=== PATIENT | female | born 1945 | race Caucasian/White ===

== ENCOUNTER 2019-05-13 14:09 | Inpatient (IN) | payer MEDICARE ==
[2019-05-13] MEDS ORDERED: Vancomycin(*) 1,000 MG in NS 0.9% 250 ML* 250 ML IV ONE (15:41)
[2019-05-13] MEDS ORDERED: Piperacillin/Tazobac ADVAN(*) 3.375 GM in NS 0.9% 100 ML* 100 ML IVPB ONE (15:41)
[2019-05-13] MEDS ORDERED: Lactated Ringers 1000 ML Bag* 1,000 ML IV ONE (15:42)
--- NOTE | 2019-05-13 16:00 | ED ---
Shortness of Breath - HPI Summary HPI Summary: This patient is a 74 year old F sent to ED by Dr. Kitchen with a chief complaint of SOB since several months ago. Patient is an ex-smoker who quit 10-15 years ago. She was sent by her PCP to Dr. Kitchen for mild anemia, fever, tachycardia, and cough. Dr. Kitchen worked up the patient and found the patients hemoglobin to be within normal limits, but had an elevated WBC, ESR, and CRP. Patient is also reporting cough, so patient received a CXR, which indicated a possible mass. Follow-up CT revealed a 9cm R lower lobe object that could be a mass, abscess, or something else. Dr. Kitchen thus sent the patient here and also consulted with Dr. Pro, process operator, who will perform a bronchoscopy. In the ED room, patient is tachycardic but not febrile. She denies chest pain. The patient rates the pain 0/10 in severity. Symptoms aggravated by nothing. Symptoms alleviated by nothing. - History of Current Complaint Chief Complaint: EDShortnessOfBreath Time Seen by Provider: 05/13/19 14:54 Hx Obtained From: Patient, EMS, Other: - Dr. Kitchen Onset/Duration: Gradual Onset, Lasting Weeks, Still Present, Worse Since Timing: Constant Current Severity: Mild Dyspnea At: Rest Aggravating Factors: Nothing Alleviating Factors: Nothing Associated Signs & Symptoms: Negative - Chest pain, Cough (Nonproductive), Fever - Allergy/Home Medications Allergies/Adverse Reactions: Allergies Allergy/AdvReac Type Severity Reaction Status Date / Time No Known Allergies Allergy Verified 05/13/19 14:23 Home Medications: Home Medications Acetaminophen TAB* [Tylenol TAB*] 650 mg PO BID PRN 05/13/19 [History Confirmed 05/13/19] Cetirizine* [ZyrTEC 10 MG TAB*] 10 mg PO DAILY 05/13/19 [History Confirmed 05/13] Diclofenac Sodium 1 % TOPICAL TID PRN 05/13/19 [History Confirmed 05/13/19] L.acidoph,Paracasei, B.lactis [Probiotic] 1 each PO TID 05/13/19 [History Confirmed 05/13/19] Milk Thistle/Nac/Dandel/Turmer [Liver Complex Tablet] 1 each PO BID 05/13/19 [ History Confirmed 05/13/19] Multivitamins/Minerals TAB* [Theragran/minerals TAB*] 1 tab PO DAILY 05/13/19 [ History Confirmed 05/13/19] PMH/Surg Hx/FS Hx/Imm Hx Cardiovascular History: Reports: Hx Hypertension Musculoskeletal History: Reports: Hx Arthritis - Cancer History Hx Chemotherapy: No Hx Radiation Therapy: No - Surgical History Surgery Procedure, Year, and Place: x2. D&C. [place] teeth - Immunization History Immunizations Up to Date: Yes Infectious Disease History: No Infectious Disease History: Denies: Traveled Outside the [place] in Last 30 Days - Family History Known Family History: Negative: Seizure Disorder - Social History Alcohol Use: Occasionally Hx Substance Use: No Substance Use Type: Reports: None Hx Tobacco Use: Yes Smoking Status (MU): Former Smoker Review of Systems Positive: Fever Cardiovascular: Other - Tachycardia Negative: Chest Pain Positive: Shortness Of Breath, Cough All Other Systems Reviewed And Are Negative: Yes Physical Exam - Summary Physical Exam Summary: Constitutional: Well-developed, Well-nourished, Alert. (-) Distressed Skin: Warm, Dry HENT: Normocephalic; Atraumatic Eyes: Conjunctiva normal Neck: Musculoskeletal ROM normal neck. (-) JVD, (-) Stridor, (-) Tracheal deviation Cardio: Tachycardic, warm and well-perfused peripherally Pulmonary/Chest wall: Effort normal. (-) Respiratory distress, (-) Wheezes, (-) Rales Abd: Soft, (-) tenderness, (-) Distension, (-) Guarding, (-) Rebound Musculoskeletal: Very minimal 1+ edema of anterior legs, no calf tenderness or swelling Neuro: Alert, Oriented x3 Psych: Mood and affect Normal Triage Information Reviewed: Yes Vital Signs On Initial Exam: Initial Vitals Temp Pulse Resp BP Pulse Ox 99.3 F 108 16 176/87 94 05/13/19 14:18 05/13/19 14:18 05/13/19 14:18 05/13/19 14:18 05/13/19 14:18 Vital Signs Reviewed: Yes Procedures - Sedation Patient Received Moderate/Deep Sedation with Procedure: No Diagnostics - Vital Signs Vital Signs Temp Pulse Resp BP Pulse Ox 05/13/19 15:41 114 163/91 96 05/13/19 15:35 118 94 05/13/19 14:18 99.3 F 108 16 176/87 94 - Laboratory Result Diagrams: 05/13/19 16:12 05/13/19 16:12 Lab Statement: Any lab studies that have been ordered have been reviewed, and results considered in the medical decision making process. - EKG 1614 Cardiac Rate: Tachycardia - 106 BPM EKG Rhythm: Sinus Tachycardia ST Segment: Non-Specific Summary of EKG Findings: An EKG at 1614 revealed sinus tachycardia at 106 BPM, non-specific T-wave abnormalities, 1x PVC, no STEMI. Dr. Casas has reviewed and interpreted this EKG report. Course/Dx - Course Course Of Treatment: This patient is a 74 year old F sent to ED by Dr. Kitchen with a chief complaint of SOB since several months ago. Patient was sent here by Dr. Kitchen for potential lung abscess or mass treatment and work-up. As patient had an elevated WBC per Dr. Baez, I have considered the sepsis protocol, but I do not think the patient can handle the high fluid load of 30/ kg due to her weight, age, and frailty. Thus, I will gently give fluids, Zosyn, and Vancomycin. An EKG at 1614 revealed sinus tachycardia at 106 BPM, non- specific T-wave abnormalities, 1x PVC, no STEMI. Discussed patient case with Dr. Schwarz, hospitalist, who accepted the patient for admission to [facility]. Patient will be admitted to [facility] with dx of lung mass, likely abscess vs malignancy. Patient understands and agrees with this plan. - Diagnoses Provider Diagnoses: Lung mass - Physician Notifications Discussed Care of Patient With: [place] Schwarz Time Discussed With Above Provider: 16:19 Instructed by Provider To: Admit As Inpatient - Discussed patient case with Dr. Schwarz, hospitalist, who accepted the patient for admission to [facility]. Discharge ED - Sign-Out/Discharge Documenting (check all that apply): Patient Departure - Admit - Discharge Plan Condition: Fair Disposition: ADMITTED TO [facility] - Billing Disposition and Condition Condition: FAIR Disposition: Admitted to [facility] - Attestation Statements Document Initiated by Scribe: Yes Documenting Scribe: Justin Rodarte Provider For Whom Scribe is Documenting (Include Credential): Claude Casas MD Scribe Attestation: IJustin, scribed for Claude Casas MD on 05/13/19 at 1907. Scribe Documentation Reviewed: Yes Provider Attestation: The documentation as recorded by the scribe, Justin Rodarte accurately reflects the service I personally performed and the decisions made by me, Claude Casas MD Status of Scribe Document: Viewed
[2019-05-13 16:22] LABS: ABS Lymphocytes 1.6 10^3/ul (1.0-4.8); ABS Monocytes 0.5 10^3/ul (0-0.8); ABS Neutrophils 8.5 10^3/ul (1.5-7.7); Eosinophil % 0.3 %; Hematocrit 37 % (35-47); Hemoglobin 12.5 g/dL (12.0-16.0); Lymphocyte % 15.1 %; Mean Corpuscular HGB Conc 34 g/dL (31-36); Mean Corpuscular Hemoglobin 29 pg (27-31); Mean Corpuscular Volume 85 fL (80-97); Mean Platelet Volume 7.2 fL (7.4-10.4); Platelet Count 423 10^3/uL (150-450); Red Blood Count 4.31 10^6 /uL (3.70-4.87); Red Cell Distribution Width 15 % (10-15); White Blood Count 10.7 10^3/uL (3.5-10.8)
[2019-05-13 16:33] LABS: INR 1.05 (0.82-1.09)
[2019-05-13 16:40] LABS: Troponin I 0.01 ng/mL (<0.03)
[2019-05-13 16:49] LABS: BUN/Creatinine Ratio 17.9 (8-20); Calcium 10.1 mg/dL (8.6-10.3); EGFR African American 104.1 (>60); Potassium 3.7 mmol/L (3.5-5.0)
--- NOTE | 2019-05-13 16:56 | CONS ---
PULMONARY CONSULTATION REPORT: DATE OF CONSULT: 05/13/19 CONSULTATION REQUESTED BY: Dr. Kitchen. REASON FOR CONSULTATION: Evaluation of abnormal CT chest. HISTORY OF PRESENT ILLNESS: The patient is a 74-year-old female who was recently referred to Hematology/Oncology for evaluation of anemia. The patient with history of colon polyps. The patient had colonoscopy in April 2018 that showed hyperplastic polyps. She was found to have elevated WBC count with no anemia. She had CXR for evaluation of source of infection give elevated WBC count. The patient had shortness of breath over the past few months, gradually worsening. Deneis fevers , chills, wt loss or loss of appetite. Reports having cough with phleghm. The patient had chest x- ray performed which was abnormal, which prompted CT chest. I have personally reviewed chest x-ray and CT scan of the chest . The patient with evidence of large mass lesion on to the right side. The patient's mass is in the right lower lobe. The patient also with air density in the mass. The patient with prominent pretracheal and subcarinal lymph nodes. Right hilum is also obscured by the mass. Patient was sent to ED for evaluation of sepsis sec to necrotizing PNA. The patient was noted to be hemodynamically stable with low-grade temperature at 99.3, pulse of 114 beats per minute, O2 sat 96% on room air, blood pressure 163/ 91. The patient with hypoxemia with exertion noted [facility] 6-[facility]. 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 30 pack smoking history, quit 16 yrs ago ROS: All 12 systems were reviewed and as per HPI O/E: Gen: Pt in NAD HEENT: PERRLA Lungs: Good a/e b/l, clear to auscultation CVS: S1, S2+ Abd: Soft, BS+ Ext: Normal ROM Skin: NO rash Neuro: No focal deficits DIAGNOSTIC STUDIES/LAB DATA: WBC count 11.8, hemoglobin 12.2, hematocrit 36, platelet count 391. Sodium 137, potassium 3.7, chloride 99, bicarb 30, BUN 14, creatinine 0.7. TSH within normal limits. CRP elevated at 44. Chest x-ray and CT scan as described above in HPI. IMPRESSION AND RECOMMENDATIONS: 74-year-old female with abnormal CT chest. Differential includes infectious versus inflammatory versus neoplastic. Given no other signs of active infection at this time and prior smoking history, malignancy is also in the differential. Given central mass, I suspect small cell or squamous. Will initiate broad spectrum abx for PNA Full septic w/u including sputum cx The patient will need bronchoscopy for further evaluation in the near future. Further recommendations to follow. [id number]/[facility] #: [id number] [facility]
[2019-05-13] MEDS ORDERED: Zosyn per Pharmacy* NOTE FOLLOW UP SCH (18:00)
[2019-05-13] MEDS ORDERED: Vancomycin(*) 750 MG in NS 0.9% 250 ML* 250 ML IVPB ONE (18:00)
[2019-05-13] MEDS ORDERED: Vancomycin per Pharmacy* NOTE FOLLOW UP SCH (18:00)
[2019-05-13] MEDS ORDERED: RISEDRONATE 35 MG PO SCH (18:00)
[2019-05-13] MEDS: Enoxaparin(*) 40 MG/0.4 ML SYR SUBCUT SCH (19:28)
--- NOTE | 2019-05-13 19:40 | HP ---
CC: Dr. Angel; Dr. Pro * ADMISSION HISTORY AND PHYSICAL: DATE OF ADMISSION: 05/13/19 CHIEF COMPLAINT: Abnormal chest CT. HISTORY OF PRESENT ILLNESS: Ms. Willard is a 74-year-old woman with a history of hypertension and arthritis who had dyspnea with exertion for several months. This seemed to get worse in the last month and is associated with a mild cough. She attributed the cough to allergies. The patient saw her primary care doctor and was referred to Dr. Kitchen because of mild anemia. The patient saw Dr. Kitchen yesterday and had a repeat white count, which showed resolution of anemia, but an elevated white cell count. The patient had a chest x-ray yesterday, which showed a concern of a mass on the right side. The patient today had her chest CT and was meeting up with Dr. Kitchen. The CT scan showed a 7.9 x 7.8 x 6.3 cm mass in the right lower lobe in the central perihilar area. The mass has a central decreased density and some air pockets. There is also lymphadenopathy noted in the mediastinum and hilum. Because of the CT findings, the patient was referred to the ER for admission. The patient was seen in the ER by Dr. Pro for consultation. She reviewed the CT and talked to the patient and listed the differential of malignancy, either squamous cell or small-cell lung cancer, versus lung infection/abscess versus inflammation. She recommended admission, broad-spectrum antibiotics, and a bronchoscopy as soon as could be arranged. PAST MEDICAL HISTORY: Includes hypertension, hyperlipidemia, osteoarthritis, and osteoporosis. PAST SURGICAL HISTORY: Appendectomy, x2, and carpal tunnel surgery. MEDICATIONS ON ADMISSION: 1. Acetaminophen as needed. 2. Aspirin 81 mg p.o. daily. 3. Calcium with magnesium 1 to 2 tabs p.o. daily. 4. Cetirizine 10 mg p.o. daily. 5. Diclofenac topically 1% t.i.d. p.r.n. to joint pain. 6. Ezetimibe/simvastatin 10/40 one tab p.o. daily. 7. Hydrochlorothiazide 25 mg p.o. q.a.m. 8. Irbesartan 300 mg p.o. daily. 9. Probiotic 1 tab p.o. t.i.d. 10. Milk thistle 1 tab p.o. b.i.d. 11. Multivitamin 1 tab p.o. daily. 12. Actonel 35 mg p.o. q. week. ALLERGIES: No known drug allergies. She has some seasonal allergies. FAMILY HISTORY: Mother had rheumatoid arthritis and steroid-induced bone disease, but of pneumonia. Father of emphysema. She has a sister, who is alive, who had a stroke. SOCIAL HISTORY: She is a retired business banking officer and business redrawer. She is . She has 2 children. She quit tobacco 16 years ago after a 30-pack- year history. She drinks alcohol about once a week. No recreational drugs. REVIEW OF SYSTEMS: The patient denies any fevers, weight loss, or anorexia. The patient denies any chest pain or palpitations. The patient denies any hemoptysis. The patient denies any nausea, vomiting, diarrhea, or constipation. The patient's only pain is in her knees, which she attributes to arthritis. Remainder of her 14- point review of systems is negative other than mentioned in the HPI. PHYSICAL EXAMINATION GENERAL: She is alert and in no acute distress. VITAL SIGNS: Temperature is 37.4, pulse 106 to 118, respirations are 16, blood pressure is 125/89, O2 sat is 96%. HEENT: Head is normocephalic, atraumatic. Sclerae anicteric. Pupils are equal , round, and reactive to light and accommodation. Oropharynx is moist. No lesions. NECK: No JVD. No carotid bruit. No thyromegaly. No cervical or supraclavicular adenopathy. LUNGS: Diminished throughout. There are no rales or wheezes. HEART: Tachycardiac. Regular. No murmurs. ABDOMEN: Soft, nontender. Positive bowel sounds. No hepatosplenomegaly. EXTREMITIES: No peripheral edema. Dorsalis pedis pulses 1+ bilaterally. NEUROLOGIC: Cranial nerves II through XII are intact. Motor strength is 5/5 throughout. Deep tendon reflexes are symmetric. DIAGNOSTIC STUDIES/LAB DATA: Laboratory Data: Sodium 139, potassium 3.7, chloride 101, bicarb 28, BUN 12, creatinine 0.67, glucose 98, calcium 10.1. INR 1.05. Troponin 0.01. ESR was 96. CRP 44. White count 10.7, hemoglobin 12.5, hematocrit 37%, platelets are 423. Lactic acid 1.5. Venous blood gas shows pH of 7.45, pCO2 of 42, pO2 of 40. Chest x-ray shows a right hilar mass. Chest CT shows a right lung mass with lymphadenopathy as described above. EKG shows sinus tachycardia with 1 PVC. ASSESSMENT AND PLAN: A 74-year-old woman presenting with right hilar mass with some early cavitation. The differential would include fungal infection, bacterial abscess such as methicillin-resistant Staphylococcus aureus or other Staphylococcus. This also may be a neoplasm or unusual presentation of inflammatory disease. The neoplasm according to Dr. Pro would either be squamous cell or small-cell lung cancer most likely. The plan is to: 1. Admit her to medicine and treat her with broad-spectrum Zosyn and vancomycin to cover Gram-positives and Gram-negatives, particularly Staphylococcus anaerobes. If the bronchoscopy shows any fungal or yeast disease , we will address that at that point after infectious disease consultation. 2. For hypertension, we will continue her on her current outpatient medication regimen. 3. Code status is full. 4. DVT prophylaxis. She is at high risk given her age and lung disease, so she should have subcutaneous Lovenox while she is here in the hospital. [id number]/[facility] #: [id number] [facility]TDD
[2019-05-13] MEDS: Acetaminophen TAB* 325 MG PO PRN (19:52)
[2019-05-13] MEDS: ZOSYN 3.375 GM Q8H per EXTENDED INFUSION IVPB SCH ×2 (20:47)
[2019-05-14] MEDS: ZOSYN 3.375 GM Q8H per EXTENDED INFUSION IVPB SCH ×6 (04:40→21:28)
[2019-05-14] MEDS ORDERED: Ezetimibe TAB* 10 MG PO SCH (09:00)
[2019-05-14] MEDS ORDERED: Atorvastatin* 20 MG TAB PO SCH (09:00)
[2019-05-14] MEDS: Vancomycin(*) 1,250 MG in NS 0.9% 250 ML* 250 ML IVPB SCH ×2 (09:31→21:06)
[2019-05-14] MEDS: Aspirin EC TAB* 81 MG TAB.EC PO SCH (09:32)
[2019-05-14] MEDS: Hydrochlorothiazide TAB* 25 MG PO SCH (09:32)
[2019-05-14] MEDS: Losartan TAB* 25 MG PO SCH (09:33)
--- NOTE | 2019-05-14 14:05 | PN ---
Subjective Date of Service: 05/14/19 Interval History: One loose stool today. Good appetite. ?? sl increased FULLER over her baseline, but has done very little here since admission. No cough, chills, sweats, chest pain. No new c/o. Objective Active Medications: Acetaminophen (Tylenol Tab*) 650 mg PO Q4H PRN PRN Reason: FEVER/HEADACHE Last Admin: 05/13/19 19:52 Dose: 650 mg Aspirin (Aspirin Ec Tab*) 81 mg PO DAILY [facility] Last Admin: 05/14/19 09:32 Dose: Not Given Atorvastatin Calcium (Lipitor*) 20 mg PO DAILY [facility] Last Admin: 05/14/19 09:32 Dose: Not Given Ezetimibe (Zetia Tab*) 10 mg PO DAILY [facility] Last Admin: 05/14/19 09:31 Dose: Not Given Enoxaparin Sodium (Lovenox(*)) 40 mg SUBCUT Q24H [facility] Last Admin: 05/13/19 19:28 Dose: 40 mg Hydrochlorothiazide (Hydrodiuril Tab*) 25 mg PO DAILY [facility] Last Admin: 05/14/19 09:32 Dose: 25 mg Piperacillin Sod/Tazobactam (Sod 3.375 gm/ Sodium Chloride) 100 mls @ 25 mls/ hr IVPB Q8H [facility] Last Admin: 05/14/19 13:13 Dose: 25 mls/hr Vancomycin HCl 1,250 mg/ (Sodium Chloride) 250 mls @ 166.667 mls/hr IVPB Q12H [facility] Last Admin: 05/14/19 09:31 Dose: 166.667 mls/hr Losartan Potassium (Cozaar Tab*) 100 mg PO DAILY [facility] Last Admin: 05/14/19 09:33 Dose: 100 mg Pharmacy Consult (Vancomycin Per Pharmacy*) 1 note FOLLOW UP .VANC PER PHARMACY [facility]; Protocol Pharmacy Consult (Zosyn Per Pharmacy*) 1 note FOLLOW UP .ZOSYN PER PHARMACY [facility] Pharmacy Profile Note (Vancomycin Trough Check) 1 note FOLLOW UP 0730 ONE Stop: 05/15/19 07:31 Risedronate (Actonel (Nf)) 35 mg PO WEEKLY [facility]; Protocol Vital Signs - 8 hr 05/14/19 05/14/19 05/14/19 07:15 08:00 11:15 Temperature 98.8 F 98.5 F Pulse Rate 98 102 Respiratory 18 16 16 Rate Blood Pressure 121/71 127/58 (mmHg) O2 Sat by Pulse 92 94 Oximetry Oxygen Devices in Use Now: None Appearance: Alert, partly up in bed. In good spirits. Looks comfortable. . Eyes: No Scleral Icterus Respiratory: Symmetrical Chest Expansion and Respiratory Effort, Clear to Auscultation, Clear to Percussion Cardiovascular: NL Sounds; No Murmurs; No JVD, RRR, No Edema, - Extremities: No Edema, No Clubbing, Cyanosis, - Skin: No Rash or Ulcers, No Nodules or Sclerosis, - Neurological: Alert and Oriented x 3, NL Sensation Result Diagrams: 05/13/19 16:12 05/13/19 16:12 Microbiology and Other Data: Microbiology 05/13/19 17:20 Gram Stain - Final Sputum Expectorated Assess/Plan/Problems-Billing Assessment: - Patient Problems (1) Lung mass Current Visit: Yes Status: Acute Code(s): R91.8 - OTHER NONSPECIFIC ABNORMAL FINDING OF LUNG FIELD SNOMED Code(s): 886151377 Comment: 9 x 7 cm RLL mass, heterogenous on CT scan with gas, necrotic cancer vs abcess. Continue pip/felicitas, vanco. Dr. Pro considering bronchoscopy. (2) HTN (hypertension) Current Visit: Yes Status: Acute Code(s): I10 - ESSENTIAL (PRIMARY) HYPERTENSION SNOMED Code(s): 41555105 Comment: continue thiazide, losartan (3) Hyperlipidemia Current Visit: Yes Status: Acute Code(s): E78.5 - HYPERLIPIDEMIA, UNSPECIFIED SNOMED Code(s): 43104887 Comment: Continue statin, ezetimibe
[2019-05-14] MEDS: Enoxaparin(*) 40 MG/0.4 ML SYR SUBCUT SCH (17:04)
--- NOTE | 2019-05-14 18:01 | PN ---
Progress Note - Progress Note Date of Service: 05/14/19 - Pulm f/u note Note: Pt seen and examined at bedside. Pt reports feeling better. Was able to ambulate without much dyspnea Active Medications Generic Name Dose Route Start Last Admin Trade Name Freq PRN Reason Stop Dose Admin Acetaminophen 650 mg 05/13/19 17:34 05/13/19 19:52 Tylenol Tab* PO 650 mg Q4H PRN Administration FEVER/HEADACHE Aspirin 81 mg 05/14/19 09:00 05/14/19 09:32 Aspirin Ec Tab* PO Not Given DAILY [facility] Atorvastatin Calcium 20 mg 05/14/19 21:00 Lipitor* PO BEDTIME [facility] Ezetimibe 10 mg 05/14/19 21:00 Zetia Tab* PO BEDTIME [facility] Enoxaparin Sodium 40 mg 05/13/19 18:00 05/14/19 17:04 Lovenox(*) SUBCUT 40 mg Q24H [facility] Administration Hydrochlorothiazide 25 mg 05/14/19 09:00 05/14/19 09:32 Hydrodiuril Tab* PO 25 mg DAILY [facility] Administration Piperacillin Sod/Tazobactam 100 mls @ 25 mls/hr 05/13/19 20:30 05/14/19 13:13 Sod 3.375 gm/ Sodium Chloride IVPB 25 mls/hr Q8H [facility] Administration Vancomycin HCl 1,250 mg/ 250 mls @ 166.667 mls/hr 05/14/19 08:00 05/14/19 09: 31 Sodium Chloride IVPB 166.667 mls/hr Q12H [facility] Administration Losartan Potassium 100 mg 05/14/19 09:00 05/14/19 09:33 Cozaar Tab* PO 100 mg DAILY [facility] Administration Pharmacy Consult 1 note 05/13/19 18:00 Vancomycin Per Pharmacy* FOLLOW UP .VANC PER PHARMACY [facility] Protocol Pharmacy Consult 1 note 05/13/19 18:00 Zosyn Per Pharmacy* FOLLOW UP .ZOSYN PER PHARMACY [facility] Pharmacy Profile Note 1 note 05/15/19 07:30 Vancomycin Trough Check FOLLOW UP 05/15/19 07:31 0730 ONE Risedronate 35 mg 05/13/19 18:00 Actonel (Nf) PO WEEKLY [facility] Protocol Vital Signs Temp Pulse Resp BP Pulse Ox 99.2 F 98 18 129/68 95 05/14/19 15:15 05/14/19 15:15 05/14/19 15:15 05/14/19 15:15 05/14/19 15:15 O/E: Pt in NAD HEENT: PERRLA Lungs: Clear to auscultation b/l CVS: S1, S2+ Abd: Soft, BS+ Ext: Normal ROM Skin: No rash Neuro: No focal deficits Labs: No new labs I/R; 74 y o f former smoker being evaluated for anemia/leucocytosis found to have necrotizing mass on CT chest Lung abscess versus malignancy Pt on broad spectrum abx No signs of sepsis Has FULLER noticable over past month Has not had much cough Sputum cx negative so far Will need bronchoscopy, awaiting OR availability c/w abx OOB to chair
[2019-05-14] MEDS: Ezetimibe TAB* 10 MG PO SCH (21:07)
[2019-05-14] MEDS: Atorvastatin* 20 MG TAB PO SCH (21:07)
[2019-05-15] MEDS: ZOSYN 3.375 GM Q8H per EXTENDED INFUSION IVPB SCH ×6 (03:39→20:29)
[2019-05-15] MEDS ORDERED: Vancomycin Trough Check NOTE FOLLOW UP ONE (07:30)
[2019-05-15] MEDS: Aspirin EC TAB* 81 MG TAB.EC PO SCH (09:22)
[2019-05-15] MEDS: Hydrochlorothiazide TAB* 25 MG PO SCH (09:22)
[2019-05-15] MEDS: Vancomycin(*) 1,250 MG in NS 0.9% 250 ML* 250 ML IVPB SCH ×2 (09:22→17:28)
[2019-05-15] MEDS: Losartan TAB* 25 MG PO SCH (09:23)
[2019-05-15] MEDS: Ondansetron ODT TAB* 4 MG SL PRN (11:23)
--- NOTE | 2019-05-15 12:47 | PN ---
Subjective Date of Service: 05/15/19 Interval History: Minimal cough. 2 loose BM's since [place]. Some nausea. Objective Active Medications: Acetaminophen (Tylenol Tab*) 650 mg PO Q4H PRN PRN Reason: FEVER/HEADACHE Last Admin: 05/13/19 19:52 Dose: 650 mg Aspirin (Aspirin Ec Tab*) 81 mg PO DAILY [facility] Last Admin: 05/15/19 09:22 Dose: Not Given Atorvastatin Calcium (Lipitor*) 20 mg PO BEDTIME [facility] Last Admin: 05/14/19 21:07 Dose: 20 mg Ezetimibe (Zetia Tab*) 10 mg PO BEDTIME [facility] Last Admin: 05/14/19 21:07 Dose: 10 mg Enoxaparin Sodium (Lovenox(*)) 40 mg SUBCUT Q24H [facility] Last Admin: 05/14/19 17:04 Dose: 40 mg Hydrochlorothiazide (Hydrodiuril Tab*) 25 mg PO DAILY [facility] Last Admin: 05/15/19 09:22 Dose: 25 mg Piperacillin Sod/Tazobactam (Sod 3.375 gm/ Sodium Chloride) 100 mls @ 25 mls/ hr IVPB Q8H [facility] Last Admin: 05/15/19 03:39 Dose: 25 mls/hr Vancomycin HCl 1,250 mg/ (Sodium Chloride) 250 mls @ 166.667 mls/hr IVPB Q8H [facility] Losartan Potassium (Cozaar Tab*) 100 mg PO DAILY [facility] Last Admin: 05/15/19 09:23 Dose: 100 mg Ondansetron HCl (Zofran Odt Tab*) 4 mg SL Q6H PRN PRN Reason: NAUSEA/VOMITING Last Admin: 05/15/19 11:23 Dose: 4 mg Pharmacy Consult (Vancomycin Per Pharmacy*) 1 note FOLLOW UP .VANC PER PHARMACY [facility]; Protocol Pharmacy Consult (Zosyn Per Pharmacy*) 1 note FOLLOW UP .ZOSYN PER PHARMACY [facility] Pharmacy Profile Note (Vancomycin Trough Check) 1 note FOLLOW UP ONCE ONE Stop: 05/17/19 08:31 Risedronate (Actonel (Nf)) 35 mg PO WEEKLY [facility]; Protocol Vital Signs - 8 hr 05/15/19 05/15/19 07:15 08:00 Temperature 98.2 F Pulse Rate 96 Respiratory 16 18 Rate Blood Pressure 133/64 (mmHg) O2 Sat by Pulse 95 Oximetry Oxygen Devices in Use Now: None Eyes: No Scleral Icterus Neck: NL Appearance and Movements; NL JVP, No Thyroid Enlargement, Masses Respiratory: Symmetrical Chest Expansion and Respiratory Effort, Clear to Auscultation, Clear to Percussion Cardiovascular: NL Sounds; No Murmurs; No JVD, RRR, No Edema, - Extremities: No Edema, No Clubbing, Cyanosis, - Skin: No Rash or Ulcers, No Nodules or Sclerosis, - Neurological: Alert and Oriented x 3, NL Sensation Result Diagrams: 05/13/19 16:12 05/13/19 16:12 Microbiology and Other Data: Microbiology 05/13/19 17:20 Gram Stain - Final Sputum Expectorated Assess/Plan/Problems-Billing Assessment: - Patient Problems (1) Lung mass Current Visit: Yes Status: Acute Code(s): R91.8 - OTHER NONSPECIFIC ABNORMAL FINDING OF LUNG FIELD SNOMED Code(s): 967857976 Comment: 9 x 7 cm RLL mass, heterogenous on CT scan with gas, necrotic cancer vs abcess. Continue pip/felicitas, vanco. Discussed with Dr. Pro 05/15/19 , considering bronchoscopy, ? as outpt. (2) HTN (hypertension) Current Visit: Yes Status: Acute Code(s): I10 - ESSENTIAL (PRIMARY) HYPERTENSION SNOMED Code(s): 70176581 Comment: continue thiazide, losartan (3) Hyperlipidemia Current Visit: Yes Status: Acute Code(s): E78.5 - HYPERLIPIDEMIA, UNSPECIFIED SNOMED Code(s): 24992026 Comment: Continue statin, ezetimibe
[2019-05-15] MEDS: Acetaminophen TAB* 325 MG PO PRN (15:32)
[2019-05-15] MEDS: Enoxaparin(*) 40 MG/0.4 ML SYR SUBCUT SCH (17:29)
--- NOTE | 2019-05-15 19:28 | PN ---
Progress Note - Progress Note Date of Service: 05/15/19 - Pulm f/u note Note: Pt seen and examined at bedside. Pt reports feeling better. No new complaints. Active Medications Generic Name Dose Route Start Last Admin Trade Name Freq PRN Reason Stop Dose Admin Acetaminophen 650 mg 05/13/19 17:34 05/15/19 15:32 Tylenol Tab* PO 650 mg Q4H PRN Administration FEVER/HEADACHE Aspirin 81 mg 05/14/19 09:00 05/15/19 09:22 Aspirin Ec Tab* PO Not Given DAILY [facility] Atorvastatin Calcium 20 mg 05/14/19 21:00 05/14/19 21:07 Lipitor* PO 20 mg BEDTIME [facility] Administration Ezetimibe 10 mg 05/14/19 21:00 05/14/19 21:07 Zetia Tab* PO 10 mg BEDTIME [facility] Administration Enoxaparin Sodium 40 mg 05/13/19 18:00 05/15/19 17:29 Lovenox(*) SUBCUT 40 mg Q24H [facility] Administration Hydrochlorothiazide 25 mg 05/14/19 09:00 05/15/19 09:22 Hydrodiuril Tab* PO 25 mg DAILY [facility] Administration Piperacillin Sod/Tazobactam 100 mls @ 25 mls/hr 05/13/19 20:30 05/15/19 13:45 Sod 3.375 gm/ Sodium Chloride IVPB 25 mls/hr Q8H [facility] Administration Vancomycin HCl 1,250 mg/ 250 mls @ 166.667 mls/hr 05/15/19 17:00 05/15/19 17: 28 Sodium Chloride IVPB 166.667 mls/hr Q8H [facility] Administration Losartan Potassium 100 mg 05/14/19 09:00 05/15/19 09:23 Cozaar Tab* PO 100 mg DAILY [facility] Administration Ondansetron HCl 4 mg 05/15/19 09:37 05/15/19 11:23 Zofran Odt Tab* SL 4 mg Q6H PRN Administration NAUSEA/VOMITING Pharmacy Consult 1 note 05/13/19 18:00 Vancomycin Per Pharmacy* FOLLOW UP .VANC PER PHARMACY [facility] Protocol Pharmacy Consult 1 note 05/13/19 18:00 Zosyn Per Pharmacy* FOLLOW UP .ZOSYN PER [facility]ARMACY [facility] Pharmacy Profile Note 1 note 05/17/19 08:30 Vancomycin Trough Check FOLLOW UP 05/17/19 08:31 ONCE ONE Risedronate 35 mg 05/13/19 18:00 Actonel (Nf) PO WEEKLY [facility] Protocol Vital Signs Temp Pulse Resp BP Pulse Ox 100.0 F 101 20 128/61 93 05/15/19 15:15 05/15/19 15:15 05/15/19 15:15 05/15/19 15:15 05/15/19 15:15 O/E: Pt in NAD HEENT: PERRLA Lungs: Clear to auscultation b/l CVS: S1, S2+ Abd: Soft, BS+ Ext: Normal ROM Skin: No rash Neuro: No focal deficits Laboratory Results - last 24 hr 05/15/19 07:22 Vancomycin Trough 11.0 I/R; 74 y o f former smoker being evaluated for anemia/leucocytosis found to have necrotizing mass on CT chest Lung abscess versus malignancy Pt on broad spectrum abx Has FULLER noticeable over past month Has not had much cough Sputum cx negative so far Will need bronchoscopy, awaiting OR availability c/w abx for possible lung abscess OOB to chair
[2019-05-15] MEDS: Ezetimibe TAB* 10 MG PO SCH (20:28)
[2019-05-15] MEDS: Atorvastatin* 20 MG TAB PO SCH (20:29)
[2019-05-15] MEDS: Lactobacillus Acidophilus* 1 TAB PO SCH (21:56)
[2019-05-16] MEDS: Vancomycin(*) 1,250 MG in NS 0.9% 250 ML* 250 ML IVPB SCH ×3 (00:54→18:11)
[2019-05-16] MEDS: Acetaminophen TAB* 325 MG PO PRN ×3 (01:06→20:34)
[2019-05-16] MEDS: ZOSYN 3.375 GM Q8H per EXTENDED INFUSION IVPB SCH ×6 (04:21→20:25)
[2019-05-16] MEDS: Hydrochlorothiazide TAB* 25 MG PO SCH (10:10)
[2019-05-16] MEDS: Lactobacillus Acidophilus* 1 TAB PO SCH ×2 (10:10→20:24)
[2019-05-16] MEDS: Aspirin EC TAB* 81 MG TAB.EC PO SCH (10:10)
[2019-05-16] MEDS: Losartan TAB* 25 MG PO SCH (10:10)
[2019-05-16] MEDS: Enoxaparin(*) 40 MG/0.4 ML SYR SUBCUT SCH (18:11)
--- NOTE | 2019-05-16 19:01 | PN ---
Subjective Date of Service: 05/16/19 Interval History: Mild sense of malaise today, but appetite is good. Pt walked in the [place]. She reports her stools are more formed today. C/O vaginal yeast infection which she has had many times in the past. Objective Active Medications: Acetaminophen (Tylenol Tab*) 650 mg PO Q4H PRN PRN Reason: FEVER/HEADACHE Last Admin: 05/16/19 13:45 Dose: 650 mg Aspirin (Aspirin Ec Tab*) 81 mg PO DAILY [facility] Last Admin: 05/16/19 10:10 Dose: Not Given Atorvastatin Calcium (Lipitor*) 20 mg PO BEDTIME [facility] Last Admin: 05/15/19 20:29 Dose: 20 mg Ezetimibe (Zetia Tab*) 10 mg PO BEDTIME [facility] Last Admin: 05/15/19 20:28 Dose: 10 mg Enoxaparin Sodium (Lovenox(*)) 40 mg SUBCUT Q24H [facility] Last Admin: 05/16/19 18:11 Dose: 40 mg Hydrochlorothiazide (Hydrodiuril Tab*) 25 mg PO DAILY [facility] Last Admin: 05/16/19 10:10 Dose: 25 mg Piperacillin Sod/Tazobactam (Sod 3.375 gm/ Sodium Chloride) 100 mls @ 25 mls/ hr IVPB Q8H [facility] Last Admin: 05/16/19 13:45 Dose: 25 mls/hr Vancomycin HCl 1,250 mg/ (Sodium Chloride) 250 mls @ 166.667 mls/hr IVPB Q8H [facility] Last Admin: 05/16/19 18:11 Dose: 166.667 mls/hr Lactobacillus Rhamnosus (Lactobacillus Acidophilus*) 1 tab PO BID [facility] Last Admin: 05/16/19 10:10 Dose: 1 tab Loperamide HCl (Imodium Cap*) 2 mg PO .SEE DIRECTIONS PRN PRN Reason: DIARRHEA Losartan Potassium (Cozaar Tab*) 100 mg PO DAILY [facility] Last Admin: 05/16/19 10:10 Dose: 100 mg Ondansetron HCl (Zofran Odt Tab*) 4 mg SL Q6H PRN PRN Reason: NAUSEA/VOMITING Last Admin: 05/15/19 11:23 Dose: 4 mg Pharmacy Consult (Vancomycin Per Pharmacy*) 1 note FOLLOW UP .VANC PER PHARMACY [facility]; Protocol Pharmacy Consult (Zosyn Per Pharmacy*) 1 note FOLLOW UP .ZOSYN PER PHARMACY [facility] Pharmacy Profile Note (Vancomycin Trough Check) 1 note FOLLOW UP ONCE ONE Stop: 05/17/19 08:31 Risedronate (Actonel (Nf)) 35 mg PO WEEKLY [facility]; Protocol Vital Signs - 8 hr 05/16/19 05/16/19 11:15 15:15 Temperature 98.5 F 98.7 F Pulse Rate 100 104 Respiratory 16 18 Rate Blood Pressure 116/51 123/49 (mmHg) O2 Sat by Pulse 95 93 Oximetry Oxygen Devices in Use Now: None Extremities: No Edema, No Clubbing, Cyanosis Skin: No Nodules or Sclerosis, - - red, indurated area L forearm and antecubital area due to infiltrated IV. Neurological: Alert and Oriented x 3, NL Sensation Result Diagrams: 05/13/19 16:12 05/13/19 16:12 Microbiology and Other Data: Microbiology 05/13/19 17:20 Gram Stain - Final Sputum Expectorated Assess/Plan/Problems-Billing Assessment: - Patient Problems (1) Lung mass Current Visit: Yes Status: Acute Code(s): R91.8 - OTHER NONSPECIFIC ABNORMAL FINDING OF LUNG FIELD SNOMED Code(s): 981414608 Comment: 9 x 7 cm RLL mass, heterogenous on CT scan with gas, necrotic cancer vs abcess. Continue pip/felicitas, vanco. Discussed with Dr. Pro 05/15/19 , considering bronchoscopy, ? as outpt. (2) HTN (hypertension) Current Visit: Yes Status: Acute Code(s): I10 - ESSENTIAL (PRIMARY) HYPERTENSION SNOMED Code(s): 26071055 Comment: continue thiazide, losartan (3) Hyperlipidemia Current Visit: Yes Status: Acute Code(s): E78.5 - HYPERLIPIDEMIA, UNSPECIFIED SNOMED Code(s): 00633763 Comment: Continue statin, ezetimibe (4) Vaginal candidiasis Current Visit: Yes Status: Acute Code(s): B37.3 - CANDIDIASIS OF VULVA AND VAGINA SNOMED Code(s): 79065882 Comment: fluconazole 150 mg ordered 05/16.
[2019-05-16] MEDS ORDERED: Fluconazole 150 MG TAB PO ONE (19:02)
[2019-05-16] MEDS: Ezetimibe TAB* 10 MG PO SCH (20:24)
[2019-05-16] MEDS: Atorvastatin* 20 MG TAB PO SCH (20:25)
[2019-05-17] MEDS: Vancomycin(*) 1,250 MG in NS 0.9% 250 ML* 250 ML IVPB SCH ×2 (01:06→09:18)
[2019-05-17] MEDS: ZOSYN 3.375 GM Q8H per EXTENDED INFUSION IVPB SCH ×2 (04:22)
[2019-05-17] MEDS ORDERED: Vancomycin Trough Check NOTE FOLLOW UP ONE (08:30)
[2019-05-17 08:56] LABS: EGFR African American 27.4 (>60); EGFR Non-African American 22.6 (>60)
--- NOTE | 2019-05-17 09:40 | PN ---
Subjective Date of Service: 05/17/19 Interval History: Some nausea. One loose stool per day as before. Objective Active Medications: Acetaminophen (Tylenol Tab*) 650 mg PO Q4H PRN PRN Reason: FEVER/HEADACHE Last Admin: 05/16/19 20:34 Dose: 650 mg Aspirin (Aspirin Ec Tab*) 81 mg PO DAILY [facility] Last Admin: 05/16/19 10:10 Dose: Not Given Atorvastatin Calcium (Lipitor*) 20 mg PO BEDTIME [facility] Last Admin: 05/16/19 20:25 Dose: 20 mg Doxycycline Hyclate (Vibramycin Cap(*)) 100 mg PO BID [facility] Ezetimibe (Zetia Tab*) 10 mg PO BEDTIME [facility] Last Admin: 05/16/19 20:24 Dose: 10 mg Enoxaparin Sodium (Lovenox(*)) 40 mg SUBCUT Q24H [facility] Last Admin: 05/16/19 18:11 Dose: 40 mg Hydrochlorothiazide (Hydrodiuril Tab*) 25 mg PO DAILY [facility] Last Admin: 05/16/19 10:10 Dose: 25 mg Dextrose/Sodium Chloride (D5w 1/2 Ns 1000 Ml Bag*) 1,000 mls @ 125 mls/hr IV PER RATE [facility] Lactobacillus Rhamnosus (Lactobacillus Acidophilus*) 1 tab PO BID [facility] Last Admin: 05/16/19 20:24 Dose: 1 tab Loperamide HCl (Imodium Cap*) 2 mg PO .SEE DIRECTIONS PRN PRN Reason: DIARRHEA Losartan Potassium (Cozaar Tab*) 100 mg PO DAILY [facility] Last Admin: 05/16/19 10:10 Dose: 100 mg Ondansetron HCl (Zofran Odt Tab*) 4 mg SL Q6H PRN PRN Reason: NAUSEA/VOMITING Last Admin: 05/15/19 11:23 Dose: 4 mg Risedronate (Actonel (Nf)) 35 mg PO WEEKLY [facility]; Protocol Vital Signs - 8 hr 05/17/19 03:04 Temperature 98.4 F Pulse Rate 103 Respiratory 18 Rate Blood Pressure 134/73 (mmHg) O2 Sat by Pulse 93 Oximetry Oxygen Devices in Use Now: None Appearance: SAlert, partly upp in bed. In good spiritsw. Looks comfortable. Eyes: No Scleral Icterus Ears/Nose/Mouth/Throat: Clear Oropharnyx, Mucous Membranes Moist Neck: NL Appearance and Movements; NL JVP, No Thyroid Enlargement, Masses Extremities: No Edema, No Clubbing, Cyanosis, - Skin: No Nodules or Sclerosis, - - Erythema and induration 2 areas LUE both better today. Neurological: Alert and Oriented x 3, NL Sensation Result Diagrams: 05/13/19 16:12 05/17/19 08:30 Microbiology and Other Data: Microbiology 05/13/19 17:20 Gram Stain - Final Sputum Expectorated Assess/Plan/Problems-Billing Assessment: - Patient Problems (1) Lung mass Current Visit: Yes Status: Acute Code(s): R91.8 - OTHER NONSPECIFIC ABNORMAL FINDING OF LUNG FIELD SNOMED Code(s): 459176355 Comment: 9 x 7 cm RLL mass, heterogenous on CT scan with gas, necrotic cancer vs abcess. Change to levofloxacin, doxy 05/17. Renal dosing of levo. Discussed with Dr. Pro 05/15/19, considering bronchoscopy, ? as outpt. (2) HTN (hypertension) Current Visit: Yes Status: Acute Code(s): I10 - ESSENTIAL (PRIMARY) HYPERTENSION SNOMED Code(s): 21958593 Comment: continue thiazide, losartan (3) Hyperlipidemia Current Visit: Yes Status: Acute Code(s): E78.5 - HYPERLIPIDEMIA, UNSPECIFIED SNOMED Code(s): 48704832 Comment: Continue statin, ezetimibe (4) Vaginal candidiasis Current Visit: Yes Status: Acute Code(s): B37.3 - CANDIDIASIS OF VULVA AND VAGINA SNOMED Code(s): 85742694 Comment: fluconazole 150 mg ordered 05/16. (5) Acute kidney failure Current Visit: Yes Status: Acute Comment: Suspect interstial nephritis from PCN. US kidneys/bladder, IV fluids. BMP 05/18. [place] antibiotics to oral levo, doxy.
[2019-05-17] MEDS: Ondansetron ODT TAB* 4 MG SL PRN ×2 (10:26→20:24)
[2019-05-17] MEDS: Lactobacillus Acidophilus* 1 TAB PO SCH ×2 (10:26→20:20)
[2019-05-17] MEDS: DOXYcycline CAP(*) 100 MG PO SCH ×2 (10:26→20:20)
[2019-05-17] MEDS: Hydrochlorothiazide TAB* 25 MG PO SCH (10:26)
[2019-05-17] MEDS: D5W 1/2 NS 1000 ML BAG* 1,000 ML IV SCH ×2 (10:30→20:20)
[2019-05-17] MEDS: Aspirin EC TAB* 81 MG TAB.EC PO SCH (10:31)
[2019-05-17] MEDS ORDERED: Levofloxacin TAB* 500 MG PO ONE (12:00)
[2019-05-17] MEDS: Losartan TAB* 25 MG PO SCH (12:28)
--- NOTE | 2019-05-17 15:09 | PN ---
Progress Note - Progress Note Date of Service: 05/17/19 - Pulm f/u note Note: Pt seen and examined at bedside. Pt reports no signficant SOB. Has been having nausea and 1 loose stool/day. No significant cough Active Medications Generic Name Dose Route Start Last Admin Trade Name Freq PRN Reason Stop Dose Admin Acetaminophen 650 mg 05/13/19 17:34 05/16/19 20:34 Tylenol Tab* PO 650 mg Q4H PRN Administration FEVER/HEADACHE Aspirin 81 mg 05/14/19 09:00 05/17/19 10:31 Aspirin Ec Tab* PO Not Given DAILY [facility] Atorvastatin Calcium 20 mg 05/14/19 21:00 05/16/19 20:25 Lipitor* PO 20 mg BEDTIME [facility] Administration Doxycycline Hyclate 100 mg 05/17/19 10:00 05/17/19 10:26 Vibramycin Cap(*) PO 100 mg BID [facility] Administration Ezetimibe 10 mg 05/14/19 21:00 05/16/19 20:24 Zetia Tab* PO 10 mg BEDTIME [facility] Administration Enoxaparin Sodium 30 mg 05/17/19 18:00 Lovenox(*) SUBCUT Q24H [facility] Hydrochlorothiazide 25 mg 05/14/19 09:00 05/17/19 10:26 Hydrodiuril Tab* PO 25 mg DAILY [facility] Administration Dextrose/Sodium Chloride 1,000 mls @ 125 mls/hr 05/17/19 10:00 05/17/19 10:30 D5w 1/2 Ns 1000 Ml Bag* IV 125 mls/hr PER RATE [facility] Administration Lactobacillus Rhamnosus 1 tab 05/15/19 21:00 05/17/19 10:26 Lactobacillus Acidophilus* PO 1 tab BID [facility] Administration Levofloxacin 250 mg 05/18/19 09:00 Levaquin Tab* PO DAILY [facility] Loperamide HCl 2 mg 05/15/19 20:34 Imodium Cap* PO .SEE DIRECTIONS PRN DIARRHEA Losartan Potassium 100 mg 05/14/19 09:00 05/17/19 12:28 Cozaar Tab* PO 100 mg DAILY [facility] Administration Ondansetron HCl 4 mg 05/15/19 09:37 05/17/19 10:26 Zofran Odt Tab* SL 4 mg Q6H PRN Administration NAUSEA/VOMITING Risedronate 35 mg 05/13/19 18:00 Actonel (Nf) PO WEEKLY [facility] Protocol Vital Signs Temp Pulse Resp BP Pulse Ox 97.7 F 96 20 151/67 95 05/17/19 11:15 05/17/19 11:15 05/17/19 11:15 05/17/19 11:15 05/17/19 11:15 /E: Pt in NAD HEENT: PERRLA Lungs: Clear to auscultation b/l CVS: S1, S2+ Abd: Soft, BS+ Ext: Normal ROM Skin: No rash Neuro: No focal deficits Laboratory Results - last 24 hr 05/17/19 05/17/19 08:30 08:30 BUN 15 Creatinine 2.13 H Est GFR ( Amer) 27.4 Est GFR (Non-Af Amer) 22.6 Vancomycin Trough 31.7 H* I/R; 74 y o f former smoker being evaluated for anemia/leucocytosis found to have necrotizing mass on CT chest Lung abscess versus malignancy Pt was on Zosyn, Vanco, changed to po today Pt with acute renal failure-? sec to abx Nausea likely sec to renal failure SOB is improved, has not been ambulating much Scheduled for bronchoscopy/EBUS on Friday at noon Procedure was discussed in detail Risks including risk of PTX was discussed OOB to chair D/w Dr Reyes
[2019-05-17] MEDS: Acetaminophen TAB* 325 MG PO PRN (16:13)
[2019-05-17] MEDS ORDERED: Enoxaparin(*) 30 MG/0.3 ML SYR SUBCUT SCH (18:00)
[2019-05-17] MEDS: Atorvastatin* 20 MG TAB PO SCH (20:20)
[2019-05-17] MEDS: Ezetimibe TAB* 10 MG PO SCH (20:20)
[2019-05-17] MEDS ORDERED: Amoxicillin/Clavulanate TAB* 875 MG PO SCH (21:00)
[2019-05-18] MEDS: D5W 1/2 NS 1000 ML BAG* 1,000 ML IV SCH (04:05)
[2019-05-18 06:23] LABS: ABS Lymphocytes 0.8 10^3/ul (1.0-4.8); ABS Monocytes 0.8 10^3/ul (0-0.8); ABS Neutrophils 7.9 10^3/ul (1.5-7.7); Eosinophil % 0.5 %; Hematocrit 27 % (35-47); Hemoglobin 9.2 g/dL (12.0-16.0); Lymphocyte % 8.5 %; Mean Corpuscular HGB Conc 34 g/dL (31-36); Mean Corpuscular Hemoglobin 29 pg (27-31); Mean Corpuscular Volume 85 fL (80-97); Mean Platelet Volume 7.2 fL (7.4-10.4); Platelet Count 341 10^3/uL (150-450); Red Blood Count 3.21 10^6 /uL (3.70-4.87); Red Cell Distribution Width 15 % (10-15); White Blood Count 9.5 10^3/uL (3.5-10.8)
[2019-05-18 06:41] LABS: BUN/Creatinine Ratio 5.2 (8-20); Calcium 8.7 mg/dL (8.6-10.3); EGFR African American 18.1 (>60)
[2019-05-18] MEDS ORDERED: Lactated Ringers 1000 ML Bag* 1,000 ML IV SCH (08:00)
[2019-05-18] MEDS: KCL 10 MEQ/50 ML IVPREMIX* 10 MEQ/50 ML BAG IV SCH ×2 (08:49→11:35)
[2019-05-18] MEDS: DOXYcycline CAP(*) 100 MG PO SCH (08:52)
[2019-05-18] MEDS: Lactobacillus Acidophilus* 1 TAB PO SCH ×2 (08:52→19:48)
[2019-05-18] MEDS: Aspirin EC TAB* 81 MG TAB.EC PO SCH (08:53)
[2019-05-18] MEDS: Ondansetron ODT TAB* 4 MG SL PRN ×2 (08:55→20:00)
[2019-05-18] MEDS ORDERED: Levofloxacin TAB* 250 MG PO SCH (09:00)
[2019-05-18] MEDS: Lactated Ringers 1000 ML Bag* 1,000 ML IV SCH (09:45)
--- NOTE | 2019-05-18 09:45 | PN ---
Subjective Date of Service: 05/18/19 Objective Active Medications: Acetaminophen (Tylenol Tab*) 650 mg PO Q4H PRN PRN Reason: FEVER/HEADACHE Last Admin: 05/17/19 16:13 Dose: 650 mg Aspirin (Aspirin Ec Tab*) 81 mg PO DAILY [facility] Last Admin: 05/18/19 08:53 Dose: Not Given Atorvastatin Calcium (Lipitor*) 20 mg PO BEDTIME [facility] Last Admin: 05/17/19 20:20 Dose: 20 mg Doxycycline Hyclate (Vibramycin Cap(*)) 100 mg PO BID [facility] Last Admin: 05/18/19 08:52 Dose: 100 mg Ezetimibe (Zetia Tab*) 10 mg PO BEDTIME [facility] Last Admin: 05/17/19 20:20 Dose: 10 mg Enoxaparin Sodium (Lovenox(*)) 30 mg SUBCUT Q24H [facility] Last Admin: 05/17/19 18:20 Dose: 30 mg Potassium Chloride (Potassium Chloride 10 Meq/50 Ml Ivpremix*) 10 meq in 50 mls @ 50 mls/hr IV Q2H [facility] Stop: 05/18/19 10:59 Last Admin: 05/18/19 08:49 Dose: 50 mls/hr Lactated Ringer's (Lactated Ringers 1000 Ml Bag*) 1,000 mls @ 75 mls/hr IV PER RATE [facility] Lactobacillus Rhamnosus (Lactobacillus Acidophilus*) 1 tab PO BID [facility] Last Admin: 05/18/19 08:52 Dose: 1 tab Levofloxacin (Levaquin Tab*) 250 mg PO DAILY [facility] Last Admin: 05/18/19 08:52 Dose: 250 mg Loperamide HCl (Imodium Cap*) 2 mg PO .SEE DIRECTIONS PRN PRN Reason: DIARRHEA Ondansetron HCl (Zofran Odt Tab*) 4 mg SL Q6H PRN PRN Reason: NAUSEA/VOMITING Last Admin: 05/18/19 08:55 Dose: 4 mg Risedronate (Actonel (Nf)) 35 mg PO WEEKLY [facility]; Protocol Vital Signs - 8 hr 05/18/19 04:27 Temperature 97.5 F Pulse Rate 99 Respiratory 18 Rate Blood Pressure 129/60 (mmHg) O2 Sat by Pulse 96 Oximetry Oxygen Devices in Use Now: None Result Diagrams: 05/18/19 05:39 05/18/19 05:39 Microbiology and Other Data: Microbiology 05/13/19 17:20 Gram Stain - Final Sputum Expectorated Assess/Plan/Problems-Billing Assessment:
[2019-05-18 10:55] LABS: Urine Appearance Cloudy; Urine Bilirubin Negative (Negative); Urine Blood 1+ (Negative); Urine Color Straw; Urine Glucose Negative (Negative); Urine Ketones Negative (Negative); Urine Nitrite Negative (Negative); Urine Protein Negative (Negative); Urine Specific Gravity 1.003 (1.010-1.030); Urine Urobilinogen Negative (Negative)
[2019-05-18 11:03] LABS: Urine Bacteria Absent (Absent); Urine Red Blood Cell Trace(0-2/hpf) (Absent); Urine Squamous Epithelial Cell Present (Absent); Urine White Blood Cell Absent (Absent)
[2019-05-18 12:16] LABS: Urine Sodium Concentration 31 mmol/L
[2019-05-18 12:17] LABS: Urine TP Concentration 16 mg/dL
[2019-05-18] MEDS: Loperamide CAP* 2 MG PO PRN (12:22)
[2019-05-18] MEDS: Acetaminophen TAB* 325 MG PO PRN ×2 (12:22→19:47)
[2019-05-18] MEDS: PROCHLORPERAZINE INJ 5 MG/ML 2 ML VIAL IV PRN ×2 (12:23→19:48)
[2019-05-18] MEDS ORDERED: Buffered Lidocaine 1% SYRIN* 1 ML/SYRINGE INTRADERM ONE (13:44)
[2019-05-18] MEDS: Docosanol 10%* CREAM 2 GM TUBE TOPICAL SCH ×4 (15:14→22:29)
--- NOTE | 2019-05-18 15:17 | PN ---
Progress Note - Progress Note Date of Service: 05/18/19 - Pulm f/u note Note: Pt seen and examined at bedside. Pt reports feeing better. Still has nausea, medication helping. Denies SOB, chest pain Active Medications Generic Name Dose Route Start Last Admin Trade Name Freq PRN Reason Stop Dose Admin Acetaminophen 650 mg 05/13/19 17:34 05/18/19 12:22 Tylenol Tab* PO 650 mg Q4H PRN Administration FEVER/HEADACHE Aspirin 81 mg 05/14/19 09:00 05/18/19 08:53 Aspirin Ec Tab* PO Not Given DAILY [facility] Atorvastatin Calcium 20 mg 05/14/19 21:00 05/17/19 20:20 Lipitor* PO 20 mg BEDTIME [facility] Administration Docosanol 1 applic 05/18/19 13:00 Abreva 10%* TOPICAL FIVE TIMES DAILY [facility] Doxycycline Hyclate 100 mg 05/17/19 10:00 05/18/19 08:52 Vibramycin Cap(*) PO 100 mg BID [facility] Administration Ezetimibe 10 mg 05/14/19 21:00 05/17/19 20:20 Zetia Tab* PO 10 mg BEDTIME [facility] Administration Enoxaparin Sodium 30 mg 05/17/19 18:00 05/17/19 18:20 Lovenox(*) SUBCUT 30 mg Q24H [facility] Administration Lactated Ringer's 1,000 mls @ 75 mls/hr 05/18/19 09:44 Lactated Ringers 1000 Ml Bag* IV PER RATE [facility] Lactated Ringer's 1,000 mls @ 125 mls/hr 05/19/19 06:00 Lactated Ringers 1000 Ml Bag* IV PER RATE [facility] Lactobacillus Rhamnosus 1 tab 05/15/19 21:00 05/18/19 08:52 Lactobacillus Acidophilus* PO 1 tab BID [facility] Administration Levofloxacin 250 mg 05/18/19 09:00 05/18/19 08:52 Levaquin Tab* PO 250 mg DAILY [facility] Administration Loperamide HCl 2 mg 05/15/19 20:34 05/18/19 12:22 Imodium Cap* PO 2 mg .SEE DIRECTIONS PRN Administration DIARRHEA Miconazole Nitrate 1 applic 05/18/19 21:00 Miconazole Vaginal Cream 2%* VAGINAL 05/25/19 20:59 BEDTIME [facility] Ondansetron HCl 4 mg 05/15/19 09:37 05/18/19 08:55 Zofran Odt Tab* SL 4 mg Q6H PRN Administration NAUSEA/VOMITING Prochlorperazine Edisylate 5 mg 05/18/19 12:03 05/18/19 12:23 Compazine Inj* IV 5 mg Q6H PRN Administration NAUSEA/VOMITING Risedronate 35 mg 05/13/19 18:00 Actonel (Nf) PO WEEKLY [facility] Protocol Vital Signs Temp Pulse Resp BP Pulse Ox 98.7 F 96 20 148/73 95 05/18/19 11:15 05/18/19 11:15 05/18/19 12:22 05/18/19 11:15 05/18/19 11:15 O/E: Pt in NAD HEENT: PERRLA Lungs: clear to auscultation CVS: S1, S2+ Abd: Soft, BS+ Ext: Normal ROM Neuro: NO focal deficits Laboratory Results - last 24 hr 05/18/19 05/18/19 05/18/19 05:39 05:39 10:30 WBC 9.5 RBC 3.21 L Hgb 9.2 L Hct 27 L MCV 85 MCH 29 MCHC 34 RDW 15 Plt Count 341 MPV 7.2 L Neut % (Auto) 82.6 Lymph % (Auto) 8.5 Gilliam % (Auto) 8.0 Eos % (Auto) 0.5 Baso % (Auto) 0.4 Absolute Neuts (auto) 7.9 H Absolute Lymphs (auto) 0.8 L Absolute Monos (auto) 0.8 Absolute Eos (auto) 0.0 Absolute Basos (auto) 0.0 Absolute Nucleated RBC 0.0 Nucleated RBC % 0.0 Sodium 137 Potassium 3.0 L Chloride 102 Carbon Dioxide 27 Anion Gap 8 BUN 16 Creatinine 3.05 H Est GFR ( Amer) 18.1 Est GFR (Non-Af Amer) 15.0 BUN/Creatinine Ratio 5.2 L Glucose 133 H Calcium 8.7 Urine Color Straw Urine Appearance Cloudy Urine pH 5.0 Ur Specific Parker 1.003 L Urine Protein Negative Urine Ketones Negative Urine Blood 1+ A Urine Nitrate Negative Urine Bilirubin Negative Urine Urobilinogen Negative Ur Leukocyte Esterase Negative Urine WBC (Auto) Absent Urine RBC (Auto) Trace(0-2/hpf) Ur Squamous Epith Cells Present A Urine Bacteria Absent Ur Creatinine Concen Ur Total Protein Conc U Sodium Concentration Urine Glucose Negative 05/18/19 05/18/19 10:30 10:30 WBC RBC Hgb Hct MCV MCH MCHC RDW Plt Count MPV Neut % (Auto) Lymph % (Auto) Gilliam % (Auto) Eos % (Auto) Baso % (Auto) Absolute Neuts (auto) Absolute Lymphs (auto) Absolute Monos (auto) Absolute Eos (auto) Absolute Basos (auto) Absolute Nucleated RBC Nucleated RBC % Sodium Potassium Chloride Carbon Dioxide Anion Gap BUN Creatinine Est GFR ( Amer) Est GFR (Non-Af Amer) BUN/Creatinine Ratio Glucose Calcium Urine Color Urine Appearance Urine pH Ur Specific Parker Urine Protein Urine Ketones Urine Blood Urine Nitrate Urine Bilirubin Urine Urobilinogen Ur Leukocyte Esterase Urine WBC (Auto) Urine RBC (Auto) Ur Squamous Epith Cells Urine Bacteria Ur Creatinine Concen 37.76 Ur Total Protein Conc 16 U Sodium Concentration 31 Urine Glucose I/R; 74 y o f former smoker being evaluated for anemia/leucocytosis found to have necrotizing mass on CT chest Lung abscess versus malignancy Pt was on Zosyn, Vanco, changed to po today Pt with acute renal failure-? sec to abx ID to see pt today Nausea likely sec to renal failure Scheduled for bronchoscopy/EBUS on Friday at noon Procedure was discussed in detail Risks including risk of PTX was discussed Pt agreeable to procedure OOB to chair
--- NOTE | 2019-05-18 16:37 | PN ---
Subjective Date of Service: 05/18/19 Interval History: HOSPITALIST PROGRESS NOTE Patient seen and examined at bedside. Care reviewed and d/w Cande Castillo RN. She c/o nausea, but no vomiting. Denies CP and dyspnea today. Denies urinary complaints and states her urine output is increasing. Family History: Unchanged from Admission Social History: Unchanged from Admission Past Medical History: Unchanged from Admission Objective Active Medications: Acetaminophen (Tylenol Tab*) 650 mg PO Q4H PRN PRN Reason: FEVER/HEADACHE Last Admin: 05/18/19 12:22 Dose: 650 mg Aspirin (Aspirin Ec Tab*) 81 mg PO DAILY [facility] Last Admin: 05/18/19 08:53 Dose: Not Given Atorvastatin Calcium (Lipitor*) 20 mg PO BEDTIME [facility] Last Admin: 05/17/19 20:20 Dose: 20 mg Docosanol (Abreva 10%*) 1 applic TOPICAL FIVE TIMES DAILY [facility] Last Admin: 05/18/19 16:32 Dose: Not Given Ezetimibe (Zetia Tab*) 10 mg PO BEDTIME [facility] Last Admin: 05/17/19 20:20 Dose: 10 mg Enoxaparin Sodium (Lovenox(*)) 30 mg SUBCUT Q24H [facility] Last Admin: 05/17/19 18:20 Dose: 30 mg Lactated Ringer's (Lactated Ringers 1000 Ml Bag*) 1,000 mls @ 75 mls/hr IV PER RATE [facility] Lactated Ringer's (Lactated Ringers 1000 Ml Bag*) 1,000 mls @ 125 mls/hr IV PER RATE [facility] Lactobacillus Rhamnosus (Lactobacillus Acidophilus*) 1 tab PO BID [facility] Last Admin: 05/18/19 08:52 Dose: 1 tab Loperamide HCl (Imodium Cap*) 2 mg PO .SEE DIRECTIONS PRN PRN Reason: DIARRHEA Last Admin: 05/18/19 12:22 Dose: 2 mg Miconazole Nitrate (Miconazole Vaginal Cream 2%*) 1 applic VAGINAL BEDTIME [facility] Stop: 05/25/19 20:59 Ondansetron HCl (Zofran Odt Tab*) 4 mg SL Q6H PRN PRN Reason: NAUSEA/VOMITING Last Admin: 05/18/19 08:55 Dose: 4 mg Prochlorperazine Edisylate (Compazine Inj*) 5 mg IV Q6H PRN PRN Reason: NAUSEA/VOMITING Last Admin: 05/18/19 12:23 Dose: 5 mg Risedronate (Actonel (Nf)) 35 mg PO WEEKLY [facility]; Protocol Vital Signs - 8 hr 05/18/19 05/18/19 11:15 12:22 Temperature 98.7 F Pulse Rate 96 Respiratory 18 20 Rate Blood Pressure 148/73 (mmHg) O2 Sat by Pulse 95 Oximetry Oxygen Devices in Use Now: None Appearance: Pleasant elderly lady sitting up in bed in NAD Eyes: No Scleral Icterus Ears/Nose/Mouth/Throat: Mucous Membranes Moist Neck: Trachea Midline Respiratory: Symmetrical Chest Expansion and Respiratory Effort, Clear to Auscultation Cardiovascular: RRR - Normal S1 and S2 Abdominal: NL Sounds; No Tenderness; No Distention Neurological: Alert and Oriented x 3, NL Muscle Strength and Tone Result Diagrams: 05/18/19 05:39 05/18/19 05:39 Assess/Plan/Problems-Billing Assessment: Mrs Willard is a 74yo F with PMH of HTN, HLD, DJD, osteoporosis, prior h/o tobacco abuse, who presented to ED with c/o FULLER for months, found to have a cavitary lesion on CT chest. - Patient Problems (1) Lung mass Comment: - 9 x 7 cm RLL mass, heterogenous on CT scan with gas- malignancy with necrosis vs abcess. - Changed to levofloxacin, doxy 05/17. - For bronchoscopy on 05/19/[address] Pro. (2) HTN (hypertension) Comment: - Controlled - thiazide and losartan held in the setting of CATIE. If BP trends up may add amlodipine. (3) Acute kidney failure Comment: - Suspect interstial nephritis in the setting of penicillin and vancomycin - both discontinued. - US kidneys/bladder showed no hydronephrosis. - Nephrology consult requested. (4) Hyperlipidemia Comment: - Continue Atorvastatin. (5) Vaginal candidiasis Comment: - Received Fluconazole 05/16 - Start Miconazole vaginal cream (6) DVT prophylaxis Comment: - Lovenox. (7) Full code status Status and Disposition: Inpatient.
--- NOTE | 2019-05-18 17:52 | CONSULT ---
Consult Consult: Reason for consultation: acute kidney injury Requesting physician: Dr. Miryam Bright MD History of Present illness: Patient is a very nice 74-year-old woman who was admitted several days ago for the workup of the right lung mass which could be an abscess versus tumor. History is taken from the patient, who is reliable historian, requesting physician and review of medical records. On admission she was started on broad spectrum antibiotic coverage with vancomycin and Zosyn. Previously kidney function was normal with a serum creatinine of 0.67 on the day of admission. A couple days creatinine armando up to 3.05 mg/dL today. Review of the records showed that she has been hemodynamically stable throughout the admission without any low blood pressure. She was not given any NSAIDs. She is not septic and has been afebrile. She developed some anemia from a hemoglobin of 12.5 g/dL on admission down to 9.2 g/dL today. Platelets are normal and have not decreased significantly since admission. Urine analysis is negative for protein. Screening is positive for blood but microscopic examination shows no significant red blood cells per high-power field. Blood cultures are negative after 5 days. Vancomycin and Zosyn were stopped yesterday and replaced with doxycycline. She states that her urine output has been much improved overnight and during the day today. She reports a remote history of microscopic hematuria. She was evaluated by Dr. Cotto of urology. She had a cystoscopy and kidney ultrasounds and they were all normal. ROS: Constitutional: no fevers, chills, night sweats, loss of appetite or weight loss CVS: no CP, SOB, PND, palpitations, leg swelling Respiratory: Dry cough, no sputum production, some wheezing, no hemoptysis GI: Epigastric abdominal pain- she has a history of gallstones, nausea since yesterday when she was started on doxycycline, diarrhea since admission after she was started on antibiotics. : no dysuria, gross hematuria, incontinence, hesitancy, slow urine flow All systems were reviewed and they were all negative unless otherwise specified Physical exam: Vitals stable. Blood pressure is 148/73, heart rate is 96 bpm, temperature is 98.7, oxygen saturation is 95% on room air. Constitutional: No acute distress, pleasant and conversant, but looks chronically ill Head: Atraumatic and normocephalic. Nose, lips and ears appear normal. Eyes: [place] conjunctivae, no ptosis, pupils are equal. Neck: Supple, full range of motion, non-tender, no masses, trachea midline, no thyromegaly. Respiratory: Chest is clear to auscultation with good respiratory effort. Cardiovascular: Heart auscultation shows normal S1-S2, regular rate and rhythm, no murmur rubs or gallops. No peripheral edema. Gastrointestinal: Abdomen is soft, tender in the epigastrium and nondistended. No rebound. No hepatosplenomegaly or masses appreciated, but exam was a little difficult due to obesity. Musculoskeletal: No digital cyanosis but clubbing is present, more pronounced in the toes. No joint swelling or tenderness. No CVA tenderness. Skin: No skin rashes, ulcers or lesions. Normal turgor and temperature. Neurologic: Speech fluent, no tremor, grossly nonfocal. Psychiatric: Appropriate affect, alert and oriented 3, intact judgment is insight. Labs reviewed. The most important labs were specified in history of present illness. Kidney ultrasound was done yesterday on May 17 and he was completely unremarkable. Current medications: Tylenol 650 mg by mouth every 4 hours when necessary, aspirin 81 mg daily, Lipitor 20 mg at bedtime, Zetia 10 mg at bedtime, lactated Ringers at 75/min, lactobacillus 1 by mouth twice a day, loperamide as needed, Zofran as needed, Actonel 35 mg weekly. Allergies: No known drug allergies. Family history Daughter has asthma Father passed in his 80s from emphysema Mother passed in her 70s and she had osteoporosis rheumatoid arthritis, hypertension. Social history: She is retired. 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 She is . She has 2 children. She quit smoking tobacco about 16 years ago. She smoked for 30 years one pack per day. She drinks alcohol occasionally and denies any recreational drugs. Past medical history: Hypertension, hyperlipidemia, osteoarthritis, osteoporosis , gallstones, recent anemia. Recently diagnosed lung mass. Past surgical history: Appendectomy, , carpal tunnel surgery. Assessment and plan: Patient is a very nice elderly woman admitted for workup of a lung mass who was started on broad-spectrum antibiotics specifically vancomycin and Zosyn. 1. Acute kidney injury. Most probably secondary to crystal deposition from vancomycin and Zosyn. She has no other risk factors for acute kidney injury. Blood pressure has been normal. She has not received any NSAIDs. It does not look like she has a glomerulonephritis as she does not have protein and blood in the urine. I recommend conservative management at this time with maintenance of blood pressure, avoidance of NSAIDs and continue to hold vancomycin and Zosyn. Kidney ultrasound did not show any hydronephrosis. Daily BMPs. Strict Is and Os. I will continue to follow with you. 2. Hypertension is well controlled in the hospital. I would note target lower blood pressure pressures went while she is here. 3. Nausea with poor by mouth intake. Continue LR at 75 cc/h 4. Hypokalemia. Please replace potassium with potassium chloride 20 mEq daily for now. Repeat potassium level in the morning. Discussed with Dr. Bright. Thank you for your consult will continue to follow- up with you.
--- NOTE | 2019-05-18 18:22 | CONS ---
CONSULTATION REPORT: DATE OF CONSULT: 05/18/19 REQUESTING PHYSICIAN: Dr. Lambert. CONSULTING SERVICE: Infectious Disease. REASON FOR CONSULT: Lung mass. IMPRESSION: 1. Right lung mass 8 cm, malignancy versus abscess. No preceding constitutional symptoms, minimally elevated CRP, and radiographically seems more like tumor. 2. Acute kidney injury. Could be antibiotic related. 3. Nausea. Could also be antibiotic related. RECOMMENDATIONS: We will stop her antibiotics while awaiting biopsy results hopefully to clarify the diagnosis, which may not be related to infection at all. HISTORY OF PRESENT ILLNESS: This is a 74-year-old woman who had an outpatient chest image that showed right lobe mass confirmed on a CT. There was also associated hilar lymphadenopathy. She was admitted, started on vancomycin and Zosyn for possible lung abscess. Her initial creatinine was 0.6, today it is 3 ; BUN is 16. Urinalysis shows blood, no nitrites, no protein, urine sodium is 31. A bronchoscopy is planned for tomorrow. She has had no fevers, chills, sweats, or cough. She has some longstanding dyspnea that has been getting worse and she thinks some rounding of her fingernails. Blood cultures here negative. A sputum sample was obtained that showed epithelials and neutrophils and grew what has been called normal jesse. She has had no fever here. PAST MEDICAL HISTORY: 1. Obesity. 2. Hypertension. 3. Hyperlipidemia. 4. Osteoarthritis. 5. Osteoporosis. PAST SURGICAL HISTORY: 1. Status post appendectomy. 2. Status post twice. 3. Status post carpal tunnel release. ALLERGIES: No known drug allergies. MEDICATIONS: 1. Tylenol. 2. Aspirin. 3. Lipitor. 4. Enoxaparin. 5. Doxycycline 100 mg twice a day. 6. Levaquin 250 mg daily. 7. Zetia. 8. Lactobacillus. 9. Loperamide as needed. 10. Risedronate weekly. SOCIAL HISTORY: She is a past smoker. She drinks alcohol occasionally. FAMILY HISTORY: Mother had RA and from pneumonia. Father with emphysema. REVIEW OF SYSTEMS: All negative except as noted above to a 12-point review of systems. PHYSICAL EXAM: Vital Signs: Temperature 37, heart rate 90, respiratory rate 18 , blood pressure 148/73, oxygen saturation 95% on room air. In general, she is awake, not in distress. Neurologic: She is oriented x3. Follows all commands. HEENT: There is no conjunctival hemorrhage. Oropharynx without lesions. Neck is supple without mass. Heart is regular rate and rhythm without murmurs, rubs, or gallops. Lungs are clear to auscultation bilaterally. Abdomen: Soft, nontender, nondistended. There are bowel sounds present. Skin: There is no rash or splinter hemorrhage. LABORATORY DATA: Creatinine 3, BUN 16. White blood cell count 9, hemoglobin 9 , platelets 341. Please see impression and recommendations outlined above. Thanks for asking me to see Ms. Willard in consultation. [id number] #: [id number] [facility]
[2019-05-18] MEDS: Atorvastatin* 20 MG TAB PO SCH (19:48)
[2019-05-18] MEDS: Ezetimibe TAB* 10 MG PO SCH (19:48)
[2019-05-18] MEDS: Miconazole VAGINAL CREAM 2%* 45 GM VAGINAL SCH (19:52)
[2019-05-19] MEDS: Docosanol 10%* CREAM 2 GM TUBE TOPICAL SCH ×6 (00:05→23:17)
[2019-05-19] MEDS: Lactated Ringers 1000 ML Bag* 1,000 ML IV SCH ×3 (04:59→16:10)
[2019-05-19 06:02] LABS: ABS Eosinophils 0.1 10^3/ul (0-0.6); ABS Lymphocytes 1.1 10^3/ul (1.0-4.8); ABS Monocytes 0.7 10^3/ul (0-0.8); ABS Neutrophils 7.5 10^3/ul (1.5-7.7); Eosinophil % 0.7 %; Hematocrit 29 % (35-47); Hemoglobin 9.6 g/dL (12.0-16.0); Lymphocyte % 11.8 %; Mean Corpuscular HGB Conc 33 g/dL (31-36); Mean Corpuscular Hemoglobin 28 pg (27-31); Mean Corpuscular Volume 85 fL (80-97); Mean Platelet Volume 7.1 fL (7.4-10.4); Platelet Count 373 10^3/uL (150-450); Red Blood Count 3.43 10^6 /uL (3.70-4.87); Red Cell Distribution Width 15 % (10-15); White Blood Count 9.5 10^3/uL (3.5-10.8)
[2019-05-19 06:19] LABS: BUN/Creatinine Ratio 5.1 (8-20); Calcium 9.3 mg/dL (8.6-10.3); EGFR African American 15.2 (>60); EGFR Non-African American 12.6 (>60); Potassium 3.4 mmol/L (3.5-5.0)
[2019-05-19] MEDS: Aspirin EC TAB* 81 MG TAB.EC PO SCH (07:57)
[2019-05-19] MEDS: Lactobacillus Acidophilus* 1 TAB PO SCH ×2 (07:57→22:20)
[2019-05-19] MEDS: Acetaminophen TAB* 325 MG PO PRN ×3 (07:58→23:17)
[2019-05-19] MEDS: Loperamide CAP* 2 MG PO PRN (07:59)
[2019-05-19] MEDS ORDERED: Rocuronium* 10 MG/ML VIAL ONE (13:41)
[2019-05-19] MEDS ORDERED: Lidocaine 2% PF * 5 ML VIAL ONE (13:41)
[2019-05-19] MEDS ORDERED: Propofol* 10 MG/ML 20 ML BTL ONE (13:41)
[2019-05-19] MEDS ORDERED: fentaNYL* 50 MCG/ML 2 ML VIAL (100 MCG VIAL) ONE (13:42)
[2019-05-19] MEDS ORDERED: Midazolam* 1 MG/ML 2 ML VIAL (2 MG) ONE (13:42)
--- NOTE | 2019-05-19 13:44 | PN ---
Progress Note - Progress Note Date of Service: 05/19/19 - Pulm f/u note Note: Pt seen and examined at bedside. Pt reports feeling better. Reports anxiety related to procedure. Denies significant nausea or vomiting. Active Medications Generic Name Dose Route Start Last Admin Trade Name Freq PRN Reason Stop Dose Admin Acetaminophen 650 mg 05/13/19 17:34 05/19/19 07:58 Tylenol Tab* PO 650 mg Q4H PRN Administration FEVER/HEADACHE Aspirin 81 mg 05/14/19 09:00 05/19/19 07:57 Aspirin Ec Tab* PO Not Given DAILY [facility] Atorvastatin Calcium 20 mg 05/14/19 21:00 05/18/19 19:48 Lipitor* PO 20 mg BEDTIME [facility] Administration Docosanol 1 applic 05/18/19 13:00 05/19/19 12:08 Abreva 10%* TOPICAL 1 applic FIVE TIMES DAILY [facility] Administration Ezetimibe 10 mg 05/14/19 21:00 05/18/19 19:48 Zetia Tab* PO 10 mg BEDTIME [facility] Administration Lactated Ringer's 1,000 mls @ 75 mls/hr 05/18/19 09:44 05/18/19 09:45 Lactated Ringers 1000 Ml Bag* IV 75 mls/hr PER RATE [facility] Administration Lactated Ringer's 1,000 mls @ 125 mls/hr 05/19/19 06:00 05/19/19 04:59 Lactated Ringers 1000 Ml Bag* IV 125 mls/hr PER RATE [facility] Administration Lactobacillus Rhamnosus 1 tab 05/15/19 21:00 05/19/19 07:57 Lactobacillus Acidophilus* PO 1 tab BID [facility] Administration Loperamide HCl 2 mg 05/15/19 20:34 05/19/19 07:59 Imodium Cap* PO 2 mg .SEE DIRECTIONS PRN Administration DIARRHEA Miconazole Nitrate 1 applic 05/18/19 21:00 05/18/19 19:52 Miconazole Vaginal Cream 2%* VAGINAL 05/25/19 20:59 1 applic BEDTIME [facility] Administration Ondansetron HCl 4 mg 05/15/19 09:37 05/18/19 20:00 Zofran Odt Tab* SL 4 mg Q6H PRN Administration NAUSEA/VOMITING Prochlorperazine Edisylate 5 mg 05/18/19 12:03 05/18/19 12:23 Compazine Inj* IV 5 mg Q6H PRN Administration NAUSEA/VOMITING Vital Signs Temp Pulse Resp BP Pulse Ox 98.1 F 98 16 153/72 94 05/19/19 11:15 05/19/19 11:15 05/19/19 11:15 05/19/19 11:15 05/19/19 11:15 O/E: Pt in NAD, slightly anxious HEENT: PERRLA Lungs: clear to auscultation, no wheeze CVS: S1, S2+, regular Abd: Soft, BS+, NT Ext: Normal ROM Neuro: No focal deficits Laboratory Results - last 24 hr 05/19/19 05/19/19 05:21 05:21 WBC 9.5 RBC 3.43 L Hgb 9.6 L Hct 29 L MCV 85 MCH 28 MCHC 33 RDW 15 Plt Count 373 MPV 7.1 L Neut % (Auto) 79.3 Lymph % (Auto) 11.8 [place] % (Auto) 7.7 Eos % (Auto) 0.7 Baso % (Auto) 0.5 Absolute Neuts (auto) 7.5 Absolute Lymphs (auto) 1.1 Absolute Monos (auto) 0.7 Absolute Eos (auto) 0.1 Absolute Basos (auto) 0.0 Absolute Nucleated RBC 0.0 Nucleated RBC % 0.0 Sodium 141 Potassium 3.4 L Chloride 105 Carbon Dioxide 24 Anion Gap 12 H BUN 18 Creatinine 3.55 H Est GFR ( Amer) 15.2 Est GFR (Non-Af Amer) 12.6 BUN/Creatinine Ratio 5.1 L Glucose 106 H Calcium 9.3 I/R; 74 y o f former smoker being evaluated for anemia/leucocytosis found to have necrotizing mass on CT chest Lung abscess versus malignancy Pt was on Zosyn, Vanco, changed to po. Abx stopped after ID consult Pt with acute renal failure-? sec to abx . Renal consult noted Scheduled for bronchoscopy/EBUS today under [place] Procedure was discussed in detail Risks including risk of PTX was discussed Pt agreeable to procedure Further recommendations pending biopsy results OOB to chair
[2019-05-19] MEDS ORDERED: Benzocaine/Butamben/Tetracain (CETACAINE - SINGLE USE) 5 gm TOPICAL ONE (13:51)
[2019-05-19] MEDS ORDERED: Phenylephrine 10 MG/ML VIAL* 1 ML VIAL ONE (14:21)
[2019-05-19] MEDS ORDERED: Naloxone* 0.4 MG/ML 1 ML VIAL IV PRN (14:29)
[2019-05-19] MEDS ORDERED: Metoclopramide IV* 5 MG/ML 2 ML VIAL ONE (14:29)
[2019-05-19] MEDS ORDERED: Dexamethasone IV* 4 MG/ML 1 ML (4 MG) ONE (14:29)
[2019-05-19] MEDS ORDERED: Acetaminophen TAB* 325 MG PO PRN (14:29)
[2019-05-19] MEDS ORDERED: Ondansetron INJ* 2 MG/ML VIAL ONE (14:29)
[2019-05-19] MEDS ORDERED: Sugammadex * 200 MG/2 ML VIAL IV PUSH ONE (15:21)
--- NOTE | 2019-05-19 15:24 | PN ---
Progress Note - Progress Note Date of Service: 05/19/19 Note: Chief complaint: acute kidney injury History of present illness: I saw the patient in the morning. She was lying in bed in no acute distress. She was complaining of slight worsening of shortness of breath, some wheezing with postnasal drip but she was not able to expectorate. She feels more puffy than yesterday. She continues to avoid normally. She woke up last night at least couple times to go to the bathroom. She is nothing by mouth as she is scheduled to have a bronchoscopy today. Kidney function shows some sign of improvement as her change in creatinine today is less than yesterday. Blood pressure is well controlled. She is afebrile. IV antibiotics were stopped. She was on doxycycline yesterday Review of systems: Constitutional: No fevers, chills. Appetite a little better last night. GI: No abdominal pain, nausea improved, no vomiting. : No dysuria or hematuria. Labs: White blood cell count 9.5, hemoglobin 9.6, platelets 373, sodium 141, potassium 3.4, BUN 18, creatinine 3.55, total CO2 24. Physical exam: Blood pressure is 136/66, heart rate of 102, temperature 98.3F, oxygen saturation is 94% on room air. Constitutional: No acute distress, pleasant and conversant, lying in bed in no acute distress Chest: decreased breath sounds in the right base, crackles in the midportion of the right lung field, few crackles at the left base. Good respiratory effort Cardiovascular: Heart exam shows S1-S2, regular rate and rhythm, no murmurs rubs or gallops. Extremities: trace to +1 lower extremity edema, no cyanosis, clubbing is present Psychiatric drink: Alert and oriented 3, mood is normal, judgment and insight appropriate Medications: Aspirin 81 mg daily Atorvastatin 20 mg by mouth daily at bedtime Zetia 10 mg by mouth daily at bedtime Lactated Ringers 125 mL/h lower Probiotics Assessment and plan: 1. Acute kidney injury due to vancomycin and Zosyn combination which was stopped. Kidney function shows early signs of recovery. Expect her serum creatinine to plateau and then improve. She has good urine output. Continue conservative management. 2. Hypokalemia. Continue potassium chloride 20 mEq daily. Repeat BMP in a.m. 3. Right lower lung mass. Bronchoscopy today. 4. Nausea was probably secondary to antibiotics. Much improved now that she is off antibiotics 5. Diarrhea most probably antibiotic related. Patient states that it is improving. She is on probiotics. This note was dictated using [employer] Voice recognition software.It was reviewed for major inaccuracies, minor ones may persist. Still working on training my Dragon.
--- NOTE | 2019-05-19 15:41 | BRIEFOPN ---
Brief Operative/Procedure Note - Operation Details Pre-Op Diagnosis: Lung mass Post-Op Diagnosis: Lung cancer Procedures: Bronchoscopy/EBUS Surgeon(s)/Proceduralists: Inocencia Anesthesia: [facility]- Dr Kolb Estimated Blood Loss: Negligable Findings: L4, R4, station 7, R10 negative for malignancy. Narrowing of RLL bronchus from extrinsic compression. Some mucosal irregularity. FNA from RLL superior segment positive for squamous cell ca. Specimen(s)/Culture(s) Description: FNA from lymph nodes and lung mass sent for cytology and cell block in formalin Complications: None
--- NOTE | 2019-05-19 15:50 | PN ---
Subjective Date of Service: 05/19/19 Interval History: HOSPITALIST PROGRESS NOTE Patient seen and examined at bedside. Care reviewed and d/w Cande Sanchez RN. She feels a little better today. N/V are less pronounced and diarrhea is subsiding. Family History: Unchanged from Admission Social History: Unchanged from Admission Past Medical History: Unchanged from Admission Objective Active Medications: Acetaminophen (Tylenol Tab*) 650 mg PO Q4H PRN PRN Reason: FEVER/HEADACHE Last Admin: 05/19/19 07:58 Dose: 650 mg Acetaminophen (Tylenol Tab*) 650 mg PO ONCE PRN PRN Reason: PAIN - MILD Aspirin (Aspirin Ec Tab*) 81 mg PO DAILY [facility] Last Admin: 05/19/19 07:57 Dose: Not Given Atorvastatin Calcium (Lipitor*) 20 mg PO BEDTIME [facility] Last Admin: 05/18/19 19:48 Dose: 20 mg Docosanol (Abreva 10%*) 1 applic TOPICAL FIVE TIMES DAILY [facility] Last Admin: 05/19/19 15:16 Dose: Not Given Ezetimibe (Zetia Tab*) 10 mg PO BEDTIME [facility] Last Admin: 05/18/19 19:48 Dose: 10 mg Lactated Ringer's (Lactated Ringers 1000 Ml Bag*) 1,000 mls @ 75 mls/hr IV PER RATE [facility] Last Admin: 05/18/19 09:45 Dose: 75 mls/hr Lactated Ringer's (Lactated Ringers 1000 Ml Bag*) 1,000 mls @ 125 mls/hr IV PER RATE [facility] Last Admin: 05/19/19 13:43 Dose: 125 mls/hr Lactobacillus Rhamnosus (Lactobacillus Acidophilus*) 1 tab PO BID [facility] Last Admin: 05/19/19 07:57 Dose: 1 tab Loperamide HCl (Imodium Cap*) 2 mg PO .SEE DIRECTIONS PRN PRN Reason: DIARRHEA Last Admin: 05/19/19 07:59 Dose: 2 mg Miconazole Nitrate (Miconazole Vaginal Cream 2%*) 1 applic VAGINAL BEDTIME [facility] Stop: 05/25/19 20:59 Last Admin: 05/18/19 19:52 Dose: 1 applic Naloxone HCl (Narcan*) 0.08 mg IV Q2M PRN PRN Reason: severe induced resp depression Ondansetron HCl (Zofran Odt Tab*) 4 mg SL Q6H PRN PRN Reason: NAUSEA/VOMITING Last Admin: 05/18/19 20:00 Dose: 4 mg Prochlorperazine Edisylate (Compazine Inj*) 5 mg IV Q6H PRN PRN Reason: NAUSEA/VOMITING Last Admin: 05/18/19 12:23 Dose: 5 mg Vital Signs - 8 hr 05/19/19 05/19/19 05/19/19 07:59 08:00 09:59 Temperature Pulse Rate Respiratory 20 20 16 Rate Blood Pressure (mmHg) O2 Sat by Pulse Oximetry 05/19/19 05/19/19 05/19/19 11:15 13:28 15:39 Temperature 98.1 F 98.2 F 97.2 F Pulse Rate 98 113 103 Respiratory 16 18 20 Rate Blood Pressure 153/72 200/97 140/73 (mmHg) O2 Sat by Pulse 94 93 98 Oximetry Oxygen Devices in Use Now: Nasal Cannula Appearance: Pleasant elderly lady lying in bed in NAD Eyes: No Scleral Icterus Ears/Nose/Mouth/Throat: Mucous Membranes Moist Neck: Trachea Midline Respiratory: Symmetrical Chest Expansion and Respiratory Effort, Clear to Auscultation Cardiovascular: RRR - Normal S1 and S2 Abdominal: NL Sounds; No Tenderness; No Distention Neurological: Alert and Oriented x 3, NL Muscle Strength and Tone Result Diagrams: 05/19/19 05:21 05/19/19 05:21 Assess/Plan/Problems-Billing Assessment: - Patient Problems (1) Lung mass Comment: - 9 x 7 cm RLL mass, heterogenous on CT scan with gas- malignancy with necrosis vs abcess. - For bronchoscopy with Dr Pro today. - ID input appreciated - recommended holding off antibiotics for now and to follow biopsy result prior to resuming it. (2) HTN (hypertension) Comment: - Thiazide and losartan held in the setting of CATIE. - As BP is trending up will add amlodipine. (3) Acute kidney failure Comment: - Suspect interstial nephritis in the setting of penicillin and vancomycin - both discontinued. - US kidneys/bladder showed no hydronephrosis. - Nephrology consult appreciated - creatinine is trending up, but should soon plateau and start trending down. Urine output is reportedly adequate. (4) Hyperlipidemia Comment: - Continue Atorvastatin. (5) Vaginal candidiasis Comment: - Received Fluconazole 05/16 - Continue Miconazole vaginal cream (6) DVT prophylaxis Comment: - Lovenox on hold for biopsy. (7) Full code status Status and Disposition: Inpatient.
[2019-05-19] MEDS ORDERED: Albuterol 2.5 MG/3 ML NEB.SOL* (0.083%) INH ONE ×2 (15:52→16:20)
[2019-05-19] MEDS: amLODIPine TAB* 5 MG PO SCH (17:56)
--- NOTE | 2019-05-19 21:16 | PRO ---
BRONCHOSCOPY REPORT: DATE OF PROCEDURE: 05/19/19 PROCEDURE PERFORMED: Bronchoscopy with endobronchial ultrasound-guided fine needle aspiration of mediastinal hilar nodes and lung mass. PREPROCEDURAL DIAGNOSES: Necrotic lung mass and enlarged lymph nodes. POSTPROCEDURAL DIAGNOSIS: Lung cancer. ANESTHESIA: General anesthesia. ANESTHESIOLOGIST: Dr. Kolb. DESCRIPTION OF PROCEDURE: Informed consent was obtained from the patient prior to the procedure after all the risks and benefits were thoroughly explained. The patient was intubated with size 8.5 endotracheal tube. Flexible Olympus bronchoscope was inserted through ET tube for airway inspection. No endobronchial lesions were noted on the left side. Thin secretions were noted and suctioned out. The patient noted to have narrowing of right lower lobe bronchus, the superior segment and also the lateral segment and posterior segment. Some mucosal irregularity was noted. Bronchoscope was then withdrawn and EBUS bronchoscope was inserted. L4 was accessed with one pass. Rapid onsite evaluation revealed lymphatic tissue. No malignant cells. R4 was accessed with two passes. Rapid onsite evaluation revealed lymphatic tissue with no malignant cells. Station 7 was accessed with two passes. Rapid onsite evaluation revealed lymphatic tissue with no malignant cells. R10 was accessed with one pass, also showed lymphatic tissue with no malignant cells. Lung mass was then accessed with 5 passes. Rapid onsite evaluation revealed malignant cells suggestive of squamous cell. Bronchoscope was then withdrawn. Specimen was placed in formalin. The patient tolerated the procedure well. The patient was extubated and seen in Recovery in optimal condition. [id number]/CPS #: [id number] MTDD
[2019-05-19] MEDS: Atorvastatin* 20 MG TAB PO SCH (22:20)
[2019-05-19] MEDS: Ezetimibe TAB* 10 MG PO SCH (22:20)
[2019-05-19] MEDS: Miconazole VAGINAL CREAM 2%* 45 GM VAGINAL SCH (23:18)
[2019-05-20] MEDS: Lactated Ringers 1000 ML Bag* 1,000 ML IV SCH (03:14)
[2019-05-20 06:57] LABS: ABS Lymphocytes 0.8 10^3/ul (1.0-4.8); ABS Monocytes 0.6 10^3/ul (0-0.8); ABS Neutrophils 8.6 10^3/ul (1.5-7.7); Hematocrit 27 % (35-47); Hemoglobin 9.1 g/dL (12.0-16.0); Lymphocyte % 7.7 %; Mean Corpuscular HGB Conc 34 g/dL (31-36); Mean Corpuscular Hemoglobin 28 pg (27-31); Mean Corpuscular Volume 84 fL (80-97); Platelet Count 374 10^3/uL (150-450); Red Cell Distribution Width 14 % (10-15)
[2019-05-20 07:08] LABS: BUN/Creatinine Ratio 6.3 (8-20); Calcium 9.1 mg/dL (8.6-10.3); EGFR African American 16.4 (>60); EGFR Non-African American 13.5 (>60); Potassium 3.3 mmol/L (3.5-5.0)
[2019-05-20] MEDS: Docosanol 10%* CREAM 2 GM TUBE TOPICAL SCH ×5 (09:13→20:12)
[2019-05-20] MEDS: Aspirin EC TAB* 81 MG TAB.EC PO SCH (10:05)
[2019-05-20] MEDS: amLODIPine TAB* 5 MG PO SCH (10:05)
[2019-05-20] MEDS: Lactobacillus Acidophilus* 1 TAB PO SCH ×2 (10:05→20:12)
--- NOTE | 2019-05-20 11:32 | PN ---
Progress Note - Progress Note Date of Service: 05/20/19 SOAP: Subjective: []Tolerated procedure, no change in how she feels after admission, still very SOB. Feels more SOB in hospital then at home. No fever or chills Acetaminophen (Tylenol Tab*) 650 mg PO Q4H PRN PRN Reason: FEVER/HEADACHE Last Admin: 05/19/19 23:17 Dose: 650 mg Amlodipine Besylate (Norvasc Tab*) 5 mg PO DAILY [facility] Last Admin: 05/20/19 10:05 Dose: 5 mg Aspirin (Aspirin Ec Tab*) 81 mg PO DAILY [facility] Last Admin: 05/20/19 10:05 Dose: 81 mg Atorvastatin Calcium (Lipitor*) 20 mg PO BEDTIME [facility] Last Admin: 05/19/19 22:20 Dose: 20 mg Docosanol (Abreva 10%*) 1 applic TOPICAL FIVE TIMES DAILY [facility] Last Admin: 05/20/19 10:05 Dose: 1 applic Ezetimibe (Zetia Tab*) 10 mg PO BEDTIME [facility] Last Admin: 05/19/19 22:20 Dose: 10 mg Lactated Ringer's (Lactated Ringers 1000 Ml Bag*) 1,000 mls @ 75 mls/hr IV PER RATE [facility] Last Admin: 05/19/19 16:10 Dose: 75 mls/hr Lactobacillus Rhamnosus (Lactobacillus Acidophilus*) 1 tab PO BID [facility] Last Admin: 05/20/19 10:05 Dose: 1 tab Loperamide HCl (Imodium Cap*) 2 mg PO .SEE DIRECTIONS PRN PRN Reason: DIARRHEA Last Admin: 05/19/19 07:59 Dose: 2 mg Miconazole Nitrate (Miconazole Vaginal Cream 2%*) 1 applic VAGINAL BEDTIME [facility] Stop: 05/25/19 20:59 Last Admin: 05/19/19 23:18 Dose: 1 applic Ondansetron HCl (Zofran Odt Tab*) 4 mg SL Q6H PRN PRN Reason: NAUSEA/VOMITING Last Admin: 05/18/19 20:00 Dose: 4 mg Prochlorperazine Edisylate (Compazine Inj*) 5 mg IV Q6H PRN PRN Reason: NAUSEA/VOMITING Last Admin: 05/18/19 12:23 Dose: 5 mg Objective: [] Vital Signs Temp Pulse Resp BP Pulse Ox 98.8 F 89 22 155/72 94 05/20/19 07:15 05/20/19 07:15 05/20/19 08:00 05/20/19 07:15 05/20/19 08:00 HEENT: OM moist, pale, no lesions Dec BS BL, some crackles on R RRR S1S2 NT ND +BS Clubbing and Tr edema feet neuro gross non focal Data: CT: non contrast, 8 cm RLL mass + consolidation, 1.4 cm subcarinal node and 0.8 paratracheal node Bronch/EBUS: Narrowing RLL bronchus, Bx of nodes including R10 and 7 (sub carinal). Pathology (preliminary). Non small cell LC and LN negative. personally reviewed. Assessment: []74 year old with likely NSCLC, T3, pN0 on EBUS, Mx. I suspect medistinal LN are reactive to a post obstructive pneumonia. Needs full staging and final pathology. Plan: []1. Discharge when appropriate from renal standpoint. 2. Will need PET as out patient and follow up Spect 3. Discussed dx, possible routs of therapy including XRT and surgery time with patient and chart 45 min.
--- NOTE | 2019-05-20 13:44 | PN ---
Subjective Date of Service: 05/20/19 Interval History: HOSPITALIST PROGRESS NOTE Patient seen and examined at bedside. Care reviewed and d/w Leodan Naylor. She feels a little better today. Dyspnea is unchanged, denies chest pain. Minimal hemoptysis yesterday, none so far today. Urinary output continues to be good. Nausea is improved. Family History: Unchanged from Admission Social History: Unchanged from Admission Past Medical History: Unchanged from Admission Objective Active Medications: Acetaminophen (Tylenol Tab*) 650 mg PO Q4H PRN PRN Reason: FEVER/HEADACHE Last Admin: 05/19/19 23:17 Dose: 650 mg Amlodipine Besylate (Norvasc Tab*) 5 mg PO DAILY [facility] Last Admin: 05/20/19 10:05 Dose: 5 mg Aspirin (Aspirin Ec Tab*) 81 mg PO DAILY [facility] Last Admin: 05/20/19 10:05 Dose: 81 mg Atorvastatin Calcium (Lipitor*) 20 mg PO BEDTIME [facility] Last Admin: 05/19/19 22:20 Dose: 20 mg Docosanol (Abreva 10%*) 1 applic TOPICAL FIVE TIMES DAILY [facility] Last Admin: 05/20/19 10:05 Dose: 1 applic Ezetimibe (Zetia Tab*) 10 mg PO BEDTIME [facility] Last Admin: 05/19/19 22:20 Dose: 10 mg Lactated Ringer's (Lactated Ringers 1000 Ml Bag*) 1,000 mls @ 75 mls/hr IV PER RATE [facility] Last Admin: 05/19/19 16:10 Dose: 75 mls/hr Lactobacillus Rhamnosus (Lactobacillus Acidophilus*) 1 tab PO BID [facility] Last Admin: 05/20/19 10:05 Dose: 1 tab Loperamide HCl (Imodium Cap*) 2 mg PO .SEE DIRECTIONS PRN PRN Reason: DIARRHEA Last Admin: 05/19/19 07:59 Dose: 2 mg Miconazole Nitrate (Miconazole Vaginal Cream 2%*) 1 applic VAGINAL BEDTIME [facility] Stop: 05/25/19 20:59 Last Admin: 05/19/19 23:18 Dose: 1 applic Ondansetron HCl (Zofran Odt Tab*) 4 mg SL Q6H PRN PRN Reason: NAUSEA/VOMITING Last Admin: 05/18/19 20:00 Dose: 4 mg Prochlorperazine Edisylate (Compazine Inj*) 5 mg IV Q6H PRN PRN Reason: NAUSEA/VOMITING Last Admin: 05/18/19 12:23 Dose: 5 mg Vital Signs - 8 hr 05/20/19 05/20/19 05/20/19 07:15 08:00 11:15 Temperature 98.8 F 98.3 F Pulse Rate 89 104 Respiratory 22 22 22 Rate Blood Pressure 155/72 177/81 (mmHg) O2 Sat by Pulse 94 94 95 Oximetry Oxygen Devices in Use Now: None Appearance: Pleasant elderly lady sitting up in bed in NAD Eyes: No Scleral Icterus Ears/Nose/Mouth/Throat: Clear Oropharnyx, Mucous Membranes Moist Neck: Trachea Midline Respiratory: Symmetrical Chest Expansion and Respiratory Effort, Clear to Auscultation Cardiovascular: RRR - Normal S1 and S2 Abdominal: NL Sounds; No Tenderness; No Distention Neurological: Alert and Oriented x 3, NL Muscle Strength and Tone Result Diagrams: 05/20/19 06:30 05/20/19 06:30 Assess/Plan/Problems-Billing Assessment: - Patient Problems (1) Lung mass Comment: - 9 x 7 cm RLL mass, heterogenous on CT scan with gas- 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 - Oncology consult requested. (2) HTN (hypertension) Comment: - Thiazide and losartan held in the setting of CATIE. - Uncontrolled - increase amlodipine. (3) Acute kidney failure Comment: - Suspect interstial nephritis in the setting of penicillin and vancomycin - both discontinued. - US kidneys/bladder showed no hydronephrosis. - Nephrology consult appreciated. - Creatinine down to 3.3 today. (4) Hyperlipidemia Comment: - Continue Atorvastatin. (5) Vaginal candidiasis Comment: - Received Fluconazole 05/16 - Continue Miconazole vaginal cream (6) DVT prophylaxis Comment: - SQ heparin. (7) Full code status Status and Disposition: Inpatient. Anticipate d/c in AM if renal function continues to improve.
[2019-05-20] MEDS ORDERED: amLODIPine TAB* 5 MG PO ONE (13:51)
[2019-05-20] MEDS ORDERED: Potassium Chlor TAB* 20 MEQ TAB.ER PO ONE (13:54)
--- NOTE | 2019-05-20 17:36 | PN ---
Progress Note - Progress Note Date of Service: 05/20/19 Note: Chief complaint: Acute kidney injury. History of present illness: The patient is doing well. She feels short of breath. She had a bronchoscopy yesterday. It showed the squamous cell carcinoma on FNA. She continues IV fluids she is still on lactated Ringers at 75 cc/h. Kidney function is improving. Diarrhea improving as well. Review of systems: No fevers, no chills, shortness of breath is present with minimal exertion, dry cough, no abdominal pain, no nausea, no vomiting, diarrhea improved Labs: Creatinine 3.33 coming down from 3.55, hemoglobin is 9.1 from 9.6 yesterday, potassium is 3.3, total CO2 is 26. Physical exam: Blood pressure 177/81, heart rate 107, respiration rate 22, oxygen saturation 95 % on room air Constitutional nice lady in no acute distress, pleasant and conversant Chest with decreased breath sounds on the right side few crackles bilaterally Heart shows S1-S2, regular rate and rhythm no murmurs rubs or gallops. She has +1-+2 ankle edema. Abdomen: Soft nontender nondistended Neurological: Grossly nonfocal, speech is fluent, no tremor Psychiatric: Alert and oriented 3, judgment and insight appropriate, memory normal, mood is normal. Assessment and plan: 1. Acute kidney injury due to vancomycin and Zosyn combination with crystal deposition. These medications were stopped. Her creatinine is improving. Continue conservative management. We will follow up with her as an outpatient after discharge. 2. Volume overload. I stopped her IV fluids today. If needed we can give her diuretics 3. Lung mass. Seems to be a malignancy. She will continue outpatient follow- up with oncology
--- NOTE | 2019-05-20 17:55 | PN ---
Progress Note - Progress Note Date of Service: 05/20/19 - Pulm f/u note Note: Pt seen and examined at bedside. Pt reports feleing better. She has coughed blood streaked phlegm last night. Still has some cough. Has FULLER Active Medications Generic Name Dose Route Start Last Admin Trade Name Freq PRN Reason Stop Dose Admin Acetaminophen 650 mg 05/13/19 17:34 05/19/19 23:17 Tylenol Tab* PO 650 mg Q4H PRN Administration FEVER/HEADACHE Albuterol 2.5 mg 05/20/19 15:10 Ventolin 2.5 Mg/3 Ml Neb.Nicolette* INH Q4H PRN SOB/WHEEZING Amlodipine Besylate 10 mg 05/21/19 09:00 Norvasc Tab* PO DAILY [facility] Aspirin 81 mg 05/14/19 09:00 05/20/19 10:05 Aspirin Ec Tab* PO 81 mg DAILY [facility] Administration Atorvastatin Calcium 20 mg 05/14/19 21:00 05/19/19 22:20 Lipitor* PO 20 mg BEDTIME [facility] Administration Docosanol 1 applic 05/18/19 13:00 05/20/19 17:47 Abreva 10%* TOPICAL Not Given FIVE TIMES DAILY [facility] Ezetimibe 10 mg 05/14/19 21:00 05/19/19 22:20 Zetia Tab* PO 10 mg BEDTIME [facility] Administration Heparin Sodium (Porcine) 5,000 units 05/20/19 22:00 Heparin Vial(*) SUBCUT Q8HR [facility] Lactobacillus Rhamnosus 1 tab 05/15/19 21:00 05/20/19 10:05 Lactobacillus Acidophilus* PO 1 tab BID [facility] Administration Loperamide HCl 2 mg 05/15/19 20:34 05/19/19 07:59 Imodium Cap* PO 2 mg .SEE DIRECTIONS PRN Administration DIARRHEA Miconazole Nitrate 1 applic 05/18/19 21:00 05/19/19 23:18 Miconazole Vaginal Cream 2%* VAGINAL 05/25/19 20:59 1 applic BEDTIME [facility] Administration Ondansetron HCl 4 mg 05/15/19 09:37 05/18/19 20:00 Zofran Odt Tab* SL 4 mg Q6H PRN Administration NAUSEA/VOMITING Prochlorperazine Edisylate 5 mg 05/18/19 12:03 12/10/19 12:23 Compazine Inj* IV 5 mg Q6H PRN Administration NAUSEA/VOMITING Vital Signs Temp Pulse Resp BP Pulse Ox 98.6 F 101 18 164/77 100 05/20/19 15:15 05/20/19 15:15 05/20/19 15:15 05/20/19 15:15 05/20/19 16:00 O/E: Pt in NAD, slightly anxious HEENT: PERRLA Lungs: Mild wheeze + CVS: S1, S2+, regular Abd: Soft, BS+, NT Ext: Normal ROM Neuro: No focal deficits Laboratory Results - last 24 hr 05/20/19 05/20/19 06:30 06:30 WBC 10.0 RBC 3.20 L Hgb 9.1 L Hct 27 L MCV 84 MCH 28 MCHC 34 RDW 14 Plt Count 374 MPV 7.0 L Neut % (Auto) 86.2 Lymph % (Auto) 7.7 [place] % (Auto) 5.9 Eos % (Auto) 0.0 Baso % (Auto) 0.2 Absolute Neuts (auto) 8.6 H Absolute Lymphs (auto) 0.8 L Absolute Monos (auto) 0.6 Absolute Eos (auto) 0.0 Absolute Basos (auto) 0.0 Absolute Nucleated RBC 0.0 Nucleated RBC % 0.0 Sodium 141 Potassium 3.3 L Chloride 105 Carbon Dioxide 26 Anion Gap 10 BUN 21 Creatinine 3.33 H Est GFR ( Amer) 16.4 Est GFR (Non-Af Amer) 13.5 BUN/Creatinine Ratio 6.3 L Glucose 119 H Calcium 9.1 I/R; 74 y o f former smoker being evaluated for anemia/leucocytosis found to have necrotizing mass on CT chest Lung abscess versus malignancy Pt was on Zosyn, Vanco, changed to po. Abx stopped after ID consult Pt with acute renal failure-? sec to abx . Improved today Underwent bronchoscopy/EBUS 05/19/19, no metastatic disease in lymph nodes, biopsy from RLL positive for squamous cell Pt tolerated procedure well Biopsy results reviewed with pt Oncology f/u noted Pt with mild wheeze, will order nebs OOB to chair
[2019-05-20] MEDS: Miconazole VAGINAL CREAM 2%* 45 GM VAGINAL SCH (20:12)
[2019-05-20] MEDS: Atorvastatin* 20 MG TAB PO SCH (20:12)
[2019-05-20] MEDS: Ezetimibe TAB* 10 MG PO SCH (20:12)
[2019-05-20] MEDS: Heparin VIAL(*) 5000 UNITS/ML VIAL (FIVE THOUSAND) SUBCUT SCH (20:17)
[2019-05-20] MEDS: Albuterol 2.5 MG/3 ML NEB.SOL* (0.083%) INH PRN (20:41)
[2019-05-21] MEDS: Heparin VIAL(*) 5000 UNITS/ML VIAL (FIVE THOUSAND) SUBCUT SCH ×3 (05:27→19:59)
[2019-05-21] MEDS: Docosanol 10%* CREAM 2 GM TUBE TOPICAL SCH ×5 (05:27→19:59)
[2019-05-21 07:07] LABS: BUN/Creatinine Ratio 8.5 (8-20); Calcium 9.1 mg/dL (8.6-10.3); EGFR African American 17.3 (>60); EGFR Non-African American 14.3 (>60); Potassium 3.5 mmol/L (3.5-5.0)
[2019-05-21] MEDS: Albuterol 2.5 MG/3 ML NEB.SOL* (0.083%) INH PRN ×3 (07:45→21:37)
[2019-05-21] MEDS: Aspirin EC TAB* 81 MG TAB.EC PO SCH (07:59)
[2019-05-21] MEDS: Lactobacillus Acidophilus* 1 TAB PO SCH ×2 (08:01→19:59)
[2019-05-21] MEDS ORDERED: amLODIPine TAB* 5 MG PO SCH (09:00)
[2019-05-21] MEDS ORDERED: Furosemide IV* 10 MG/ML 2 ML VIAL (20 MG) IV SLOW PU ONE (10:06)
[2019-05-21] MEDS: Acetaminophen TAB* 325 MG PO PRN (14:30)
--- NOTE | 2019-05-21 16:45 | PN ---
Progress Note - Progress Note Date of Service: 05/21/19 Note: Chief complaint: Acute kidney injury. History of present illness and review of systems: Patient continues to be short of breath. Blood pressure is running high. Pathology results from the mass biopsy showed squamous cell carcinoma. She is off of IV fluids. Her kidney function slowly improving. She denies chest pain, palpitations, nausea, vomiting, constipation. Diarrhea is improved. She notices that she voids more frequently larger amounts of urine after given Lasix 20 mg IV in the morning. Medications reviewed. Labs reviewed: Creatinine slightly better. No acid-base electrolyte abnormalities. Physical exam: Blood pressure 149/88 decreased from 190/61 earlier, heart rate 106, respirations rate is 16, oxygen saturation is 93% on room air Constitutional: No acute distress pleasant and conversant lying in bed Chest decreased breath sounds on the right side, she continues to have a few diffuse crackles bilaterally Heart shows S1-S2, regular rate and rhythm, no murmurs rubs or gallops. She has +2 ankle edema Psychiatric: Alert and oriented 3, judgment and insight appropriate, and memory normal, mood is normal Assessment and plan: 1. Acute kidney injury improving off Zosyn and vancomycin 2. Volume overload. Started on Lasix 20 mg IV today. The dose can be increased depending on the diuretic response 3. Hypertension: Add nifedipine XL 60 mg by mouth twice a day instead of amlodipine. Diuretics should improve with blood pressure control. 4. Lung mass positive for squamous cell carcinoma.
--- NOTE | 2019-05-21 17:30 | PN ---
Subjective Date of Service: 05/21/19 Interval History: HOSPITALIST PROGRESS NOTE Patient seen and examined at bedside. Care reviewed and d/w Leodan Naylor RN. She has some dyspnea, especially with exertion and was wheezing last night. BP is still high. Family History: Unchanged from Admission Social History: Unchanged from Admission Past Medical History: Unchanged from Admission Objective Active Medications: Acetaminophen (Tylenol Tab*) 650 mg PO Q4H PRN PRN Reason: FEVER/HEADACHE Last Admin: 05/21/19 14:30 Dose: 650 mg Albuterol (Ventolin 2.5 Mg/3 Ml Neb.Nicolette*) 2.5 mg INH Q4H PRN PRN Reason: SOB/WHEEZING Last Admin: 05/21/19 13:17 Dose: 2.5 mg Aspirin (Aspirin Ec Tab*) 81 mg PO DAILY [facility] Last Admin: 05/21/19 07:59 Dose: 81 mg Atorvastatin Calcium (Lipitor*) 20 mg PO BEDTIME [facility] Last Admin: 05/20/19 20:12 Dose: 20 mg Docosanol (Abreva 10%*) 1 applic TOPICAL FIVE TIMES DAILY [facility] Last Admin: 05/21/19 14:31 Dose: 1 applic Ezetimibe (Zetia Tab*) 10 mg PO BEDTIME [facility] Last Admin: 05/20/19 20:12 Dose: 10 mg Heparin Sodium (Porcine) (Heparin Vial(*)) 5,000 units SUBCUT Q8HR [facility] Last Admin: 05/21/19 14:31 Dose: 5,000 units Lactobacillus Rhamnosus (Lactobacillus Acidophilus*) 1 tab PO BID [facility] Last Admin: 05/21/19 08:01 Dose: 1 tab Loperamide HCl (Imodium Cap*) 2 mg PO .SEE DIRECTIONS PRN PRN Reason: DIARRHEA Last Admin: 05/19/19 07:59 Dose: 2 mg Miconazole Nitrate (Miconazole Vaginal Cream 2%*) 1 applic VAGINAL BEDTIME [facility] Stop: 05/25/19 20:59 Last Admin: 05/20/19 20:12 Dose: 1 applic Nifedipine (Procardia Xl Tab*) 60 mg PO 0800,1700 [facility] Ondansetron HCl (Zofran Odt Tab*) 4 mg SL Q6H PRN PRN Reason: NAUSEA/VOMITING Last Admin: 05/18/19 20:00 Dose: 4 mg Prochlorperazine Edisylate (Compazine Inj*) 5 mg IV Q6H PRN PRN Reason: NAUSEA/VOMITING Last Admin: 05/18/19 12:23 Dose: 5 mg Vital Signs - 8 hr 05/21/19 05/21/19 05/21/19 11:03 13:21 15:15 Temperature 98.5 F 97.1 F Pulse Rate 106 109 116 Respiratory 16 14 16 Rate Blood Pressure 149/80 159/61 (mmHg) O2 Sat by Pulse 93 98 94 Oximetry 05/21/19 16:00 Temperature Pulse Rate Respiratory Rate Blood Pressure (mmHg) O2 Sat by Pulse 94 Oximetry Oxygen Devices in Use Now: None Appearance: Pleasant elderly lady sitting up in bed in NAD Eyes: No Scleral Icterus Ears/Nose/Mouth/Throat: Mucous Membranes Moist Neck: Trachea Midline Respiratory: Symmetrical Chest Expansion and Respiratory Effort, - - BS+ bilaterally with bibasilar crackles and scattered wheezes Cardiovascular: RRR - Normal S1 and S2 Abdominal: NL Sounds; No Tenderness; No Distention Extremities: - - Mild bilateral LE edema Neurological: Alert and Oriented x 3, NL Muscle Strength and Tone Result Diagrams: 05/20/19 06:30 05/21/19 06:07 Microbiology and Other Data: Microbiology 05/13/19 16:12 Aerobic Blood Culture - Final Blood Venous No Growth Day 5 Anaerobic Blood Culture - Final No Growth Day 5 05/13/19 16:12 Aerobic Blood Culture - Final Blood Venous No Growth Day 5 Anaerobic Blood Culture - Final No Growth Day 5 05/13/19 17:20 Gram Stain - Final Sputum Expectorated Sputum Culture - Final Normal Jocelyn Assess/Plan/Problems-Billing Assessment: - Patient Problems (1) Lung mass Comment: - 9 x 7 cm RLL mass, heterogenous on CT scan with gas- 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 - Oncology consult appreciated. (2) HTN (hypertension) Comment: - Thiazide and losartan held in the setting of CATIE. - Still uncontrolled in the setting of fluid overload - d/w Nephrology - recommended IV Furosemide and changing amlodipine to nifedipine. (3) Acute kidney failure Comment: - Suspect interstial nephritis in the setting of penicillin and vancomycin - both discontinued. - US kidneys/bladder showed no hydronephrosis. - Nephrology consult appreciated. - Creatinine down to 3.1 today. (4) Hyperlipidemia Comment: - Continue Atorvastatin. (5) Vaginal candidiasis Comment: - Received Fluconazole 05/16 - Continue Miconazole vaginal cream (6) DVT prophylaxis Comment: - SQ heparin. (7) Full code status Status and Disposition: Inpatient. Anticipate d/c in AM if renal function continues to improve.
[2019-05-21] MEDS: NIFEdipine ER TAB* 60 MG PO SCH (17:31)
[2019-05-21] MEDS: Ezetimibe TAB* 10 MG PO SCH (19:59)
[2019-05-21] MEDS: Atorvastatin* 20 MG TAB PO SCH (19:59)
[2019-05-21] MEDS: Miconazole VAGINAL CREAM 2%* 45 GM VAGINAL SCH (19:59)
[2019-05-22] MEDS: Heparin VIAL(*) 5000 UNITS/ML VIAL (FIVE THOUSAND) SUBCUT SCH (05:55)
[2019-05-22] MEDS: Docosanol 10%* CREAM 2 GM TUBE TOPICAL SCH ×2 (05:55→09:35)
[2019-05-22 06:34] LABS: BUN/Creatinine Ratio 9.4 (8-20); Calcium 9.4 mg/dL (8.6-10.3); EGFR Non-African American 14.9 (>60)
[2019-05-22] MEDS: Acetaminophen TAB* 325 MG PO PRN (09:32)
[2019-05-22] MEDS: Potassium Chlor TAB* 20 MEQ TAB.ER PO SCH ×2 (09:33→13:39)
[2019-05-22] MEDS: Aspirin EC TAB* 81 MG TAB.EC PO SCH (09:33)
[2019-05-22] MEDS: NIFEdipine ER TAB* 60 MG PO SCH (09:33)
[2019-05-22] MEDS: Lactobacillus Acidophilus* 1 TAB PO SCH (09:33)
[2019-05-22] MEDS ORDERED: Albuterol HFA INHALER* 8 gm MDI INH PRN (10:07)
[2019-05-22] MEDS ORDERED: Furosemide IV* 10 MG/ML 2 ML VIAL (20 MG) IV SLOW PU ONE (10:08)
--- NOTE | 2019-05-22 11:05 | PN ---
Progress Note - Progress Note Date of Service: 05/22/19 Note: I saw patient in the am. feels better. BP improved. will be d/c to home later today . I recommend changing Nifedipine xl to 60 mg po bid and to be d/ on Torsemide 40 mg daily with SPironolactone 25 mg daily. she should do daily weights and follow up in the office next week with me. My office will call her to make an apptm. full note to follow. Kelly Rodriguez MD Nephrology cell phone [phone].
--- NOTE | 2019-05-22 12:39 | PN ---
Progress Note - Progress Note Date of Service: 05/22/19 - Pulm f/u note Note: Pt seen and examined at bedside. Pt reports feeling better. She still gets winded with activity. Active Medications Generic Name Dose Route Start Last Admin Trade Name Freq PRN Reason Stop Dose Admin Acetaminophen 650 mg 05/13/19 17:34 05/22/19 09:32 Tylenol Tab* PO 650 mg Q4H PRN Administration FEVER/HEADACHE Albuterol 2.5 mg 05/20/19 15:10 05/21/19 21:37 Ventolin 2.5 Mg/3 Ml Neb.Nicolette* INH 2.5 mg Q4H PRN Administration SOB/WHEEZING Albuterol 2 puff 05/22/19 10:07 Ventolin Hfa Inhaler* INH Q4H PRN SOB/WHEEZING Aspirin 81 mg 05/14/19 09:00 05/22/19 09:33 Aspirin Ec Tab* PO 81 mg DAILY [facility] Administration Atorvastatin Calcium 20 mg 05/14/19 21:00 05/21/19 19:59 Lipitor* PO 20 mg BEDTIME [facility] Administration Docosanol 1 applic 05/18/19 13:00 05/22/19 09:35 Abreva 10%* TOPICAL 1 applic FIVE TIMES DAILY [facility] Administration Ezetimibe 10 mg 05/14/19 21:00 05/21/19 19:59 Zetia Tab* PO 10 mg BEDTIME [facility] Administration Heparin Sodium (Porcine) 5,000 units 05/20/19 22:00 05/22/19 05:55 Heparin Vial(*) SUBCUT 5,000 units Q8HR [facility] Administration Lactobacillus Rhamnosus 1 tab 05/15/19 21:00 05/22/19 09:33 Lactobacillus Acidophilus* PO 1 tab BID [facility] Administration Loperamide HCl 2 mg 05/15/19 20:34 05/19/19 07:59 Imodium Cap* PO 2 mg .SEE DIRECTIONS PRN Administration DIARRHEA Miconazole Nitrate 1 applic 05/18/19 21:00 05/21/19 19:59 Miconazole Vaginal Cream 2%* VAGINAL 05/25/19 20:59 1 applic BEDTIME [facility] Administration Nifedipine 60 mg 05/21/19 17:00 05/22/19 09:33 Procardia Xl Tab* PO 60 mg 0800,1700 [facility] Administration Ondansetron HCl 4 mg 05/15/19 09:37 05/18/19 20:00 Zofran Odt Tab* SL 4 mg Q6H PRN Administration NAUSEA/VOMITING Prochlorperazine Edisylate 5 mg 05/18/19 12:03 05/18/19 12:23 Compazine Inj* IV 5 mg Q6H PRN Administration NAUSEA/VOMITING Vital Signs Temp Pulse Resp BP Pulse Ox 98.3 F 101 16 119/66 92 05/22/19 07:15 05/22/19 07:15 05/22/19 08:00 05/22/19 07:15 05/22/19 08:00 O/E: Pt in NAD, ambulating in room HEENT: PERRLA Lungs: clear to auscultation CVS: S1, S2+, regular Abd: Soft, BS+, NT Ext: Normal ROM Neuro: No focal deficits Laboratory Results - last 24 hr 05/22/19 05:45 Sodium 139 Potassium 3.0 L Chloride 102 Carbon Dioxide 27 Anion Gap 10 BUN 29 H Creatinine 3.07 H Est GFR ( Amer) 18.0 Est GFR (Non-Af Amer) 14.9 BUN/Creatinine Ratio 9.4 Glucose 157 H Calcium 9.4 I/R; 74 y o f former smoker being evaluated for anemia/leucocytosis found to have necrotizing mass on CT chest Pt underwent bronchoscopy/EBUS positive for positive for squamous cell, no metastatic disease in lymph nodes Pt ot f/u with oncology for treatment recommendations Pt with acute renal failure-? sec to abx . Creatinine improving c/w nebs prn OOB to chair Pt for d/c home today
--- NOTE | 2019-05-22 12:43 | PN ---
Progress Note - Progress Note Date of Service: 05/22/19 Note: Chief complaint: Acute kidney injury Review of systems and history of present illness: Patient's shortness of breath is improved. Blood pressure under excellent control with nifedipine XL 60 mg by mouth twice a day. Kidney function continued to slowly improve. Was noted to be hypokalemic today and she was already started on potassium chloride 20 mg twice a day for today. Denies chest pain, palpitations, nausea, vomiting, constipation and diarrhea. No shortness of breath at rest. She gets short of breath with minimal exertion. Labs: As noted earlier potassium is 3.0 mg/dL, total CO2 27, serum creatinine is 3.07 mg/dL improving. Physical exam: Blood pressure 119/66, oxygen saturation 92% on room air, heart rate is 101, temperature is 98.3F Constitutional: pleasant and conversant, lying almost flat in bed with no acute distress Chest auscultation is unchanged. Decreased breath sounds on the right base and some diffuse crackles bilaterally. Heart: S1-S2, tachycardic, no murmurs rubs or gallops, extremities trace ankle edema. Abdomen: Benign Neurologic: Grossly nonfocal Psychiatric: Alert and oriented 3, mood is normal, judgment and insight appropriate. Assessment and plan: 1. Acute kidney injury due to Zosyn and vancomycin toxicity. Continues to slowly improve. 2. Hypokalemia. Receiving potassium chloride today. 3. Hypervolemia. I would send her home on torsemide 40 mg daily and Spironolactone 25 mg daily because of hypokalemia 4. Hypertension. Excellent control on nifedipine XL 60 mg by mouth twice a day please continue the same. She is tachycardic and addition of a beta- saurabh might be a consideration but with her lung issues I would rather wait and follow her closely. 5. 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 I will follow up with her in the clinic next week. I will ask my office to make an appointment. She will get up the [facility] before her visit.
[2019-05-22 12:54] VITALS: BP 120/61
--- NOTE | 2019-05-23 10:05 | DS ---
CC: Dr. Angel; Dr. Pro; Dr. Sevilla; Dr. Rodriguez; Dr. Kitchen DISCHARGE SUMMARY: DATE OF ADMISSION: 05/13/19 DATE OF DISCHARGE: 05/22/19 PRIMARY CARE PROVIDER: Dr. Angel. CONSULTING SKETCH MAKER: Dr. Pro. CONSULTING ONCOLOGIST: Dr. Sevilla. CONSULTING SAFETY RISK LEAD: Dr. Rodriguez. DISCHARGE DIAGNOSES: 1. Squamous lung carcinoma. 2. Acute kidney injury secondary to vancomycin and Zosyn. 3. Hypokalemia. 4. Hypertension. 5. Hyperlipidemia. 6. Osteoarthritis. 7. Osteoporosis. 8. Probable chronic obstructive pulmonary disease. MEDICATION LIST: 1. Acetaminophen 650 mg p.o. b.i.d. p.r.n. for pain. 2. Multivitamin 1 tablet p.o. daily. 3. Zetia 10 mg/40 mg p.o. daily. 4. Probiotic 1 tablet p.o. t.i.d. 5. Cetirizine 10 mg p.o. daily. New Medications: 1. Potassium chloride 20 mEq p.o. daily for 3 days. 2. Nifedipine ER 60 mg p.o. at 8 a.m. and 5 p.m. 3. Aspirin 81 mg p.o. daily. 4. Combivent 2 puffs inhaled q.4 hours p.r.n. for shortness of breath. HOSPITAL COURSE: Mrs. Willard is a 74-year-old female with a past medical history as stated above w kenny presented to the hospital on 05/13/19 with complaints of shortness of breath after having an abnor mal CT of the chest. The patient has had months of progressive dyspnea on exertion and was seeing Dr Meliton Kitchen for anemia workup. The patient had a CT of the chest as an outpatient that revealed a CT of the chest without contrast that revealed a large right lower lobe mass with central decreased densit y and gas. Differential diagnosis would include primary lung carcinoma or less likely pulmonary absc ess, enlarged subcarinal mediastinal lymph node and findings compatible with COPD. The patient was a dmitted for further workup. On admission, she was started on vancomycin and Zosyn as there was cortez rn for a possible abscess. The patient was seen in consultation by pulmonary (Dr. Pro) and the patient was scheduled for bron choscopy with biopsy and the preliminary pathology report was of a squamous cell carcinoma. The biop sied lymph nodes were negative for malignancy. The patient developed acute kidney injury with vancomy marcelino and Zosyn. She was seen in consultation by nephrology (Dr. Rodriguez) and her impression was the pat ient had acute kidney injury due to Zosyn and vancomycin toxicity. The patient had an abdomen and bl adder ultrasound that showed no hydronephrosis or nephrolithiasis and no postvoid residual. The patient's creatinine peaked at 3.5 and is down to 3 on the day of discharge. The patient describe d improvement of her urine output. Her risedronate, hydrochlorothiazide, and irbesartan were discontinued in the setting of acute kidney injury, and for blood pressure control, she was started on nifedipine with better control. The idea is as her renal function normalizes she would return to her usual medications. The patient also had signs of fluid overload and she received gentle diuresis with furosemide with im provement. She will have a repeat CBC and BMP on May 25 and further medication changes should be made depending on those results. She was not discharged on diuretic at this time as her edema an d breathing seemed to be improved, but depending on her test results and clinical appearance, diureti cs may be added. Dr. Rodriguez had mentioned using torsemide and spironolactone as an outpatient, but at this point the patient will be discharged on no diuretics, only mild potassium supplementation and d epending on her test results on the 05/25/19, diuretics may be added depending on clinical necessity. The patient also had a presumed diagnosis of COPD with her history of tobacco abuse and findings on t he CT, so she was started on bronchodilators and she will follow up with Dr. Pro. The patient doretha l also follow up with Dr. Sevilla or Dr. Kitchen to continue the management of her recently diagnosed squ amous cell carcinoma. The patient is medically stable to be discharged home today to continue her workup and treatment as o utpatient. PHYSICAL EXAMINATION: Vital Signs: Temperature 97.9, heart rate is 94, respiratory rate is 16, oxyg en saturation 92% on room air, blood pressure is 120/61. General: The patient is a pleasant elderly lady, sitting up in bed, in no acute distress. CVS: Normal S1, S2. Regular rate and rhythm. Ches t: Breath sounds present bilaterally, diminished, with no added sounds. Abdomen: Soft. Bowel sound s are present. Extremities: The patient has mild bilateral lower extremity pitting edema. Neurolog ic: She is alert and oriented x3. Able to move all 4 extremities. DIET: Heart-healthy diet. ACTIVITIES: As tolerated. DISPOSITION: To home. STATUS WHILE IN THE HOSPITAL: Inpatient. CONDITION AT THE TIME OF DISCHARGE: Fair. Please keep in mind this is a summarized version of this patient's hospital stay. If you need more in formation, please feel free to call me at [phone] or please obtain the full medical records. TIME SPENT: Approximately 45 minutes were spent to complete this discharge. [id number]/CPS #: [id number]
[2019-06-18 00:35] LABS: LNGPR Specimen Cells; LNGPR Tissue ID CN19-1503-5
== END 2019-05-22 14:00 | disposition home health service (06) | DRG 167 ==
LOC: ED 14:09 → MED 17:20
PROVIDERS: ADMIT Internal Medicine; ATTEND Internal Medicine
PROC: 07B74ZX Excision of Thorax Lymphatic, Percutaneous Endoscopic Approach, Diagnostic (ICD-10-PCS; 2019-05-19)
PROC: 0BB68ZX Excision of Right Lower Lobe Bronchus, Via Natural or Artificial Opening Endoscopic, Diagnostic (ICD-10-PCS; principal; 2019-05-19 13:30)
DX: C34.91 Malignant neoplasm of unspecified part of right bronchus or lung (principal); N17.9 Acute kidney failure, unspecified; K52.1 Toxic gastroenteritis and colitis; I10 Essential (primary) hypertension; M19.90 Unspecified osteoarthritis, unspecified site; E78.5 Hyperlipidemia, unspecified; M81.0 Age-related osteoporosis without current pathological fracture; J30.1 Allergic rhinitis due to pollen; B37.3 Candidiasis of vulva and vagina; R11.0 Nausea; Y92.239 Unspecified place in hospital as the place of occurrence of the external cause; F41.9 Anxiety disorder, unspecified; T36.8X5A Adverse effect of other systemic antibiotics, initial encounter; T36.0X5A Adverse effect of penicillins, initial encounter; J44.9 Chronic obstructive pulmonary disease, unspecified; E87.6 Hypokalemia; E87.70 Fluid overload, unspecified; E86.1 Hypovolemia; E66.9 Obesity, unspecified; Z68.36 Body mass index [BMI] 36.0-36.9, adult; Z87.891 Personal history of nicotine dependence; Z28.21 Immunization not carried out because of patient refusal; Z79.899 Other long term (current) drug therapy
CPT/HCPCS: 36415; 76770; 80048; 80202; 81003; 81015; 81445; 82565; 82570; 82803; 83605; 84156; 84300; 84484; 84520; 85025; 85610; 87040; 87070; 87077; 87205; 88172; 88173; 88177; 88305; 88341; 88342; 88360; 93005; 94640; 96372; 96374; 99233; 99284; A9270-GY; J0780; J1100; J1644; J1650; J1940; J2250; J2405; J2543; J2704; J2765; J3010; J3370; J3480

== ENCOUNTER 2019-08-13 19:04 | Inpatient (IN) | payer MEDICARE ==
--- OUTSIDE RECORDS SUMMARY | 2019-08-13 19:23 | XMS REPORT | Continuity of Care Document ---
:1945 External Reference #:[id number] Author Name Kelly Rodriguez MD (transmitted by agent of provider Nichole Vance) Address [address] , [address] [place] [address] Problems Description No Information Available Social History Type Date Description Comments Sex Unknown ETOH Use Occasionally consumes alcohol Tobacco Use Start: Unknown End: Patient is a former Quit 12 years ago 1 Unknown smoker pack a day for 30 years Recreational Drug Use Denies Drug Use Smoking Status Reviewed: 05/27/19 Patient is a former Quit 12 years ago 1 smoker pack a day for 30 years Exercise Type/Frequency Exercises sporadically Allergies, Adverse Reactions, Alerts Active Allergies Reaction Severity Comments Date Environmental 05/27/2019 Torsemide Nausea 05/31/2019 05/31/2019 Medications Active Medications SIG Qnty Indications Ordering Provider Date Hydrocodone-Acetaminop 1 tab by mouth 30tabs Kelly Rodriguez MD 07/08/2019 hen every 4 hours 5-325mg Tablets as needed for pain Potassium Chloride Kelly Rodriguez MD 07/08/2019 Nuha ER 10Meq Tablets ER Furosemide 3 by mouth 270tabs Kelly Rodriguez MD 06/10/2019 40mg Tablets every day Probiotic 1 by mouth 90caps Tano Robertson MD 05/27/2019 Capsules every day Aspirin 81 1 by mouth Unknown 81mg Tablets every day DR Nifedipine ER 1 by mouth Unknown 60mg every day Tablets ER 24HR Ipratropium 2 puffs every 4 Unknown [place]/Albuterol hours Sulfate 0.5-2.5(3)mg/3ML Solution Ezetimibe-Simvastatin 10-40 mg oral Unknown every day Cetirizine HCL 1 by mouth Unknown 10mg every day as Tablets needed Acetaminophen ER 1 by mouth Unknown 650mg twice a day Tablets ER Multi Vitamin Daily 1 by mouth Unknown every day Tablets Diclofenac Sodium Billy Angel, 1% Gel Combivent Respimat Inl 1 PO qid Unknown PRF SOB Or WHZ 20-100mcg/Act Aerosol History Medications Furosemide one tab by mouth 14tabs Kelly Rodriguez, 05/31/2019 - 80mg daily 06/10/2019 Tablets Torsemide 2 by mouth every 180tabs R60.1 Kelly Rodriguez, 05/27/2019 - 20mg day in the MD 05/31/2019 Tablets morning Advair Diskus 1 by mouth twice 60units R06.00 Tano Robertson, 05/27/2019 - a day 06/26/2019 250-50mcg/Dose Aerosol Immunizations Description No Information Available Vital Signs Date Vital Result Comment 05/27/2019 2:43pm Height 63 inches 5'3" Weight 215.00 lb Heart Rate 101 /min BP Systolic Sitting 158 mmHg BP Diastolic Sitting 70 mmHg O2 % BldC Oximetry 96 % BMI (Body Mass Index) 38.1 kg/m2 05/27/2019 1:48pm Height 63 inches 5'3" Weight 214.00 lb with close and shoes Heart Rate 106 /min BP Systolic Sitting 133 mmHg right arm large cuff BP Diastolic Sitting 68 mmHg right arm large cuff O2 % BldC Oximetry 93 % room air BMI (Body Mass Index) 37.9 kg/m2 Results Test Acquired Date Facility Test Result H/L Range Note CBC Auto 06/23/2019 [facility] White Blood 8.7 10^3/uL Normal 3.5-10.[address] [place] [address] [phone] Red Blood Count 3.36 10^6/uL Low 3.70-4.87 Hemoglobin 9.3 g/dL Low 12.0-16.0 Hematocrit 28 % Low 35-47 Mean Corpuscular Volume 84 fL Normal 80-97 Mean Corpuscular Hemoglobin 28 pg Normal 27-31 Mean Corpuscular HGB Conc 33 g/dL Normal 31-36 Red Cell Distribution Width 15 % Normal 10-15 Platelet Count 472 10^3/uL High 150-450 Mean Platelet Volume 6.8 fL Low 7.4-10.4 Abs Neutrophils 6.7 10^3/uL Normal 1.5-7.7 Abs Lymphocytes 1.1 10^3/uL Normal 1.0-4.8 Abs Monocytes 0.7 10^3/uL Normal 0-0.8 Abs Eosinophils 0.2 10^3/uL Normal 0-0.6 Abs Basophils 0.1 10^3/uL Normal 0-0.2 Abs Nucleated RBC 0.0 10^3/uL Granulocyte % 76.7 % Lymphocyte % 12.2 % Monocyte % 8.2 % Eosinophil % 1.8 % Basophil % 1.1 % Nucleated Red Blood Cells % 0.0 Comp Metabolic 06/23/2019 [facility] Sodium 137 mmol/L Normal 135-145 Panel [address] [place] [address] [phone] Potassium 2.8 mmol/L Low 3.5-5.0 Chloride 97 mmol/L Low 101-111 Co2 Carbon Dioxide 30 mmol/L Normal 22-32 Anion Gap 10 mmol/L Normal 2-11 Glucose 123 mg/dL High 70-100 Blood Urea Nitrogen 19 mg/dL Normal 6-24 Creatinine 1.29 mg/dL High 0.51-0.95 BUN/Creatinine Ratio 14.7 Normal 8-20 Calcium 9.0 mg/dL Normal 8.6-10.3 Total Protein 6.8 g/dL Normal 6.4-8.9 Albumin 3.3 g/dL Normal 3.2-5.2 Globulin 3.5 g/dL Normal 2-4 Albumin/Globulin Ratio 0.9 Low 1-3 Total Bilirubin 0.30 mg/dL Normal 0.2-1.0 Alkaline Phosphatase 64 U/L Normal 34-104 Alt 13 U/L Normal 7-52 Ast 19 U/L Normal 13-39 Egfr Non- 40.4 >60 Egfr 48.9 >60 1 Laboratory test 06/23/2019 [facility] Magnesium 1.7 mg/dL Low 1.9-2.7 finding [address] [place] [address] [phone] TSH (Thyroid Stim Horm) 1.84 mcIU/mL Normal 0.34-5.60 Basic Metabolic 06/10/2019 [facility] Sodium 136 mmol/L Normal 135-145 2 Panel [address] [place] [address] [phone] Potassium 3.1 mmol/L Low 3.5-5.0 Chloride 91 mmol/L Low 101-111 Co2 Carbon Dioxide 31 mmol/L Normal 22-32 Anion Gap 14 mmol/L High 2-11 Glucose 95 mg/dL Normal 70-100 Blood Urea Nitrogen 29 mg/dL High 6-24 Creatinine 2.07 mg/dL High 0.51-0.95 BUN/Creatinine Ratio 14.0 Normal 8-20 Calcium 9.6 mg/dL Normal 8.6-10.3 Egfr Non- 23.4 >60 Egfr 28.3 >60 3 CBC Auto 06/03/2019 [facility] White Blood 12.6 10^3/uL High 3.5-10.[address] [place] [address] [phone] Red Blood Count 3.65 10^6/uL Low 3.70-4.87 Hemoglobin 10.1 g/dL Low 12.0-16.0 Hematocrit 31 % Low 35-47 Mean Corpuscular Volume 84 fL Normal 80-97 Mean Corpuscular Hemoglobin 28 pg Normal 27-31 Mean Corpuscular HGB Conc 33 g/dL Normal 31-36 Red Cell Distribution Width 15 % Normal 10-15 Platelet Count 590 10^3/uL High 150-450 Mean Platelet Volume 6.9 fL Low 7.4-10.4 Abs Neutrophils 10.1 10^3/uL High 1.5-7.7 Abs Lymphocytes 1.3 10^3/uL Normal 1.0-4.8 Abs Monocytes 0.9 10^3/uL High 0-0.8 Abs Eosinophils 0.2 10^3/uL Normal 0-0.6 Abs Basophils 0.1 10^3/uL Normal 0-0.2 Abs Nucleated RBC 0.0 10^3/uL Granulocyte % 80.5 % Lymphocyte % 10.1 % Monocyte % 6.8 % Eosinophil % 1.6 % Basophil % 1.0 % Nucleated Red Blood Cells % 0.0 Laboratory test 06/01/2019 [facility] Ammonia 32 mcmol/L Normal 16-53 finding [address] [place] [address] [phone] Comp Metabolic 06/01/2019 [facility] Sodium 137 mmol/L Normal 135-[address] [place] [address] [phone] Potassium 3.8 mmol/L Normal 3.5-5.0 Chloride 96 mmol/L Low 101-111 Co2 Carbon Dioxide 30 mmol/L Normal 22-32 Anion Gap 11 mmol/L Normal 2-11 Calcium 9.0 mg/dL Normal 8.6-10.3 Albumin 3.3 g/dL Normal 3.2-5.2 Total Bilirubin 0.30 mg/dL Normal 0.2-1.0 Glucose 101 mg/dL High 70-100 Blood Urea Nitrogen 30 mg/dL High 6-24 Creatinine 2.97 mg/dL High 0.51-0.95 BUN/Creatinine Ratio 10.1 Normal 8-20 Total Protein 6.6 g/dL Normal 6.4-8.9 Globulin 3.3 g/dL Normal 2-4 Albumin/Globulin Ratio 1.0 Normal 1-3 Alkaline Phosphatase 62 U/L Normal 34-104 Alt 22 U/L Normal 7-52 Ast 26 U/L Normal 13-39 Egfr Non- 15.4 >60 Egfr 18.7 >60 4 Laboratory test 06/01/2019 [facility] Point of 111 mg/dL High 70-[address] [place] [address] [phone] Basic Metabolic 05/26/2019 [facility] Sodium 137 mmol/L Normal 135-145 Panel [address] [place] [address] [phone] Potassium 4.5 mmol/L Normal 3.5-5.0 Chloride 99 mmol/L Low 101-111 Co2 Carbon Dioxide 28 mmol/L Normal 22-32 Anion Gap 10 mmol/L Normal 2-11 Glucose 113 mg/dL High 70-100 Blood Urea Nitrogen 27 mg/dL High 6-24 Creatinine 3.01 mg/dL High 0.51-0.95 BUN/Creatinine Ratio 9.0 Normal 8-20 Calcium 9.2 mg/dL Normal 8.6-10.3 Egfr Non- 15.2 >60 Egfr 18.4 >60 6 CBC Auto 05/12/2019 [facility] White Blood 11.8 10^3/uL High 3.5-10.[address] [place] [address] [phone] Red Blood Count 4.23 10^6/uL Normal 3.70-4.87 Hemoglobin 12.2 g/dL Normal 12.0-16.0 Hematocrit 36 % Normal 35-47 Mean Corpuscular Volume 86 fL Normal 80-97 Mean Corpuscular Hemoglobin 29 pg Normal 27-31 Mean Corpuscular HGB Conc 34 g/dL Normal 31-36 Red Cell Distribution Width 15 % Normal 10-15 Platelet Count 391 10^3/uL Normal 150-450 Mean Platelet Volume 6.8 fL Low 7.4-10.4 Abs Neutrophils 9.1 10^3/uL High 1.5-7.7 Abs Lymphocytes 1.6 10^3/uL Normal 1.0-4.8 Abs Monocytes 0.9 10^3/uL High 0-0.8 Abs Eosinophils 0.1 10^3/uL Normal 0-0.6 Abs Basophils 0.1 10^3/uL Normal 0-0.2 Abs Nucleated RBC 0.0 10^3/uL Granulocyte % 77.1 % Lymphocyte % 13.9 % Monocyte % 7.6 % Eosinophil % 0.6 % Basophil % 0.8 % Nucleated Red Blood Cells % 0.0 Comp Metabolic 05/12/2019 [facility] Sodium 137 mmol/L Normal 135-[address] [place] [address] [phone] Potassium 3.7 mmol/L Normal 3.5-5.0 Chloride 99 mmol/L Low 101-111 Co2 Carbon Dioxide 30 mmol/L Normal 22-32 Anion Gap 8 mmol/L Normal 2-11 Glucose 96 mg/dL Normal 70-100 Blood Urea Nitrogen 14 mg/dL Normal 6-24 Creatinine 0.70 mg/dL Normal 0.51-0.95 BUN/Creatinine Ratio 20.0 Normal 8-20 Calcium 10.1 mg/dL Normal 8.6-10.3 Total Protein 7.9 g/dL Normal 6.4-8.9 Albumin 3.9 g/dL Normal 3.2-5.2 Globulin 4.0 g/dL Normal 2-4 Albumin/Globulin Ratio 1.0 Normal 1-3 Total Bilirubin 0.40 mg/dL Normal 0.2-1.0 Alkaline Phosphatase 63 U/L Normal 34-104 Alt 13 U/L Normal 7-52 Ast 18 U/L Normal 13-39 Egfr Non- 81.8 >60 Egfr 99.0 >60 7 Laboratory test 05/12/2019 [facility] LDH 162 U/L Normal 140- [address] [place] [address] [phone] Iron & Iron Binding 05/12/2019 [facility] Iron 40 g/dL Low 50-[address] [place] [address] [phone] Unsaturated Iron Binding < 336 g/dL Total Iron Binding Capacity 351 g/dL Normal 250-450 Transferrin 251 mg/dL Normal 203-362 % Iron Saturation 11 % Low 15-55 Laboratory test 05/12/2019 [facility] C Reactive 44.43 mg/L High <8.[address] [place] [address] [phone] TSH (Thyroid Stim Horm) 1.08 mcIU/mL Normal 0.34-5.60 Ferritin 134.2 ng/mL Normal 11-307 Vitamin B12 292 pg/mL Normal 180-914 8 Erythrocyte Sed Rate 96 mm/Hr High 0-29 1 Because ethnic data is not always readily available, this report includes an eGFR for both -Americans and non- Americans. The National Kidney Disease Education Program (NKDEP) does not endorse the use of the MDRD equation for patients that are not between the ages of 18 and 70, are , have extremes of body size, muscle mass, or nutritional status, or are non- or non-. According to the National Kidney Foundation, irrespective of diagnosis, the stage of the disease is based on the level of kidney function: Stage Description GFR(mL/min/1.73 m(2)) 1 Kidney damage with normal or decreased GFR 90 2 Kidney damage with mild decrease in GFR 60-89 3 Moderate decrease in GFR 30-59 4 Severe decrease in GFR 15-29 5 Kidney failure <15 (or dialysis) 2 1 month 3 Because ethnic data is not always readily available, this report includes an eGFR for both -Americans and non- Americans. The National Kidney Disease Education Program (NKDEP) does not endorse the use of the MDRD equation for patients that are not between the ages of 18 and 70, are , have extremes of body size, muscle mass, or nutritional status, or are non- or non-. According to the National Kidney Foundation, irrespective of diagnosis, the stage of the disease is based on the level of kidney function: Stage Description GFR(mL/min/1.73 m(2)) 1 Kidney damage with normal or decreased GFR 90 2 Kidney damage with mild decrease in GFR 60-89 3 Moderate decrease in GFR 30-59 4 Severe decrease in GFR 15-29 5 Kidney failure <15 (or dialysis) 4 Because ethnic data is not always readily available, this report includes an eGFR for both -Americans and non- Americans. The National Kidney Disease Education Program (NKDEP) does not endorse the use of the MDRD equation for patients that are not between the ages of 18 and 70, are , have extremes of body size, muscle mass, or nutritional status, or are non- or non-. According to the National Kidney Foundation, irrespective of diagnosis, the stage of the disease is based on the level of kidney function: Stage Description GFR(mL/min/1.73 m(2)) 1 Kidney damage with normal or decreased GFR 90 2 Kidney damage with mild decrease in GFR 60-89 3 Moderate decrease in GFR 30-59 4 Severe decrease in GFR 15-29 5 Kidney failure <15 (or dialysis) 5 Shop Supervisor: [id number] 6 Because ethnic data is not always readily available, this report includes an eGFR for both -Americans and non- Americans. The National Kidney Disease Education Program (NKDEP) does not endorse the use of the MDRD equation for patients that are not between the ages of 18 and 70, are , have extremes of body size, muscle mass, or nutritional status, or are non- or non-. According to the National Kidney Foundation, irrespective of diagnosis, the stage of the disease is based on the level of kidney function: Stage Description GFR(mL/min/1.73 m(2)) 1 Kidney damage with normal or decreased GFR 90 2 Kidney damage with mild decrease in GFR 60-89 3 Moderate decrease in GFR 30-59 4 Severe decrease in GFR 15-29 5 Kidney failure <15 (or dialysis) 7 Because ethnic data is not always readily available, this report includes an eGFR for both -Americans and non- Americans. The National Kidney Disease Education Program (NKDEP) does not endorse the use of the MDRD equation for patients that are not between the ages of 18 and 70, are , have extremes of body size, muscle mass, or nutritional status, or are non- or non-. According to the National Kidney Foundation, irrespective of diagnosis, the stage of the disease is based on the level of kidney function: Stage Description GFR(mL/min/1.73 m(2)) 1 Kidney damage with normal or decreased GFR 90 2 Kidney damage with mild decrease in GFR 60-89 3 Moderate decrease in GFR 30-59 4 Severe decrease in GFR 15-29 5 Kidney failure <15 (or dialysis) 8 Normal Range 180 to 914 Indeterminate Range 145 to 180 Deficient Range <145 Procedures Date Code Description Status 06/04/2019 59606 ECHO Transthoracic, Real-Time 2D With Doppler And Color Completed Flow 06/04/2019 69640 ECHO Transthoracic, Real-Time 2D With Doppler And Color Completed Flow 05/27/2019 87623 [facility] Measurement Heart Rate, Completed Oximetry 05/19/2019 10219 Endobronchial Ultrasound =>3 Completed Medical Devices Description No Information Available Encounters Type Date Location Provider Dx Diagnosis Office Visit 05/27/2019 [facility] Nephrology Kelly Rodriguez MD N17.9 Acute kidney 1:30p failure, unspecified R60.1 Generalized edema I10 Essential (primary) hypertension C34.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 Office Visit 05/27/2019 2:45p Pulmonology And Tano Hamid, R06.00 Dyspnea, Sleep Services Of unspecified Snorkelling Instructor R91.8 Other nonspecific abnormal finding of lung field R60.0 Localized edema Office Visit 05/22/2019 11:56a Pulmonology And Shannon 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 neoplasm of Hospitalists unsp part of unsp bronchus or lung N17.9 Acute kidney failure, unspecified E87.6 Hypokalemia I10 Essential (primary) hypertension E78.5 Hyperlipidemia, unspecified Office Visit 05/21/2019 1:44p [facility] R91.8 Other nonspecific Assoc,nguyen Bright M.D. abnormal finding Hospitalists of lung field I10 Essential (primary) hypertension N17.9 Acute kidney failure, unspecified E78.5 Hyperlipidemia, unspecified B37.3 Candidiasis of vulva and vagina Office Visit 05/21/2019 2:26p [facility] Nephrology Kelly Rodriguez MD N17.8 Other acute kidney failure T36.8x5A Adverse effect of other systemic antibiotics, init encntr Office Visit 05/20/2019 2:26p [facility] Nephrology Kelly Rodriguez MD N17.8 Other acute kidney failure T36.8x5A Adverse effect of other systemic antibiotics, init encntr Office Visit 05/20/2019 1:44p [facility] R91.8 Other nonspecific Assoc,nguyen Bright M.D. abnormal finding Hospitalists of lung field I10 Essential (primary) hypertension N17.9 Acute kidney failure, unspecified E78.5 Hyperlipidemia, unspecified B37.3 Candidiasis of vulva and vagina Office Visit 05/20/2019 1:15p [facility]ology And Shannon C34.90 Malignant Sleep Services Of MD Inocencia neoplasm of unsp Snorkelling Instructor part of unsp bronchus or lung Office Visit 05/19/2019 2:25p [facility] Nephrology Kelly Rodriguez, N17.8 Other acute MD kidney failure T36.8x5A Adverse effect of other systemic antibiotics, init encntr E87.6 Hypokalemia Office Visit 05/19/2019 1:43p [facility] R91.8 Other nonspecific Assoc,nguyen Bright M.D. abnormal finding Hospitalists of lung field I10 Essential (primary) hypertension N17.9 Acute kidney failure, unspecified E78.5 Hyperlipidemia, unspecified B37.3 Candidiasis of vulva and vagina Office Visit 05/19/2019 2:10p Pulmonology And Shannon R91.8 Other nonspecific Sleep Services Of MD Inocencia abnormal finding Snorkelling Instructor of lung field Z87.891 Personal history of nicotine dependence Office Visit 05/18/2019 2:25p [employer] Nephrology Kelly Rodriguez, N17.9 Acute kidney MD failure, unspecified E87.6 Hypokalemia Office Visit 05/18/2019 1:43p [facility] R91.8 Other nonspecific Assoc,nguyen Bright M.D. abnormal finding Hospitalists of lung field N17.9 Acute kidney failure, unspecified B37.3 Candidiasis of vulva and vagina I10 Essential (primary) hypertension E78.5 Hyperlipidemia, unspecified Office Visit 05/18/2019 2:10p Pulmonology And Shannon R91.8 Other nonspecific Sleep Services Of MD Inocencia abnormal finding Snorkelling Instructor of lung field R11.0 Nausea Z87.891 Personal history of nicotine dependence Office Visit 05/18/2019 6:17a [facility] Cortes Junior R91.8 Other nonspecific Infectious Driss Yip abnormal finding Diseases of lung field N17.9 Acute kidney failure, unspecified Office Visit 05/17/2019 11:53a Pulmonology And Shannon R91.8 Other nonspecific Sleep Services Of MD Inocencia abnormal finding Snorkelling Instructor of lung field R11.0 Nausea Office Visit 05/17/2019 [facility] Other nonspecific Assoc,nguyen Reyes M.D. abnormal finding Hospitalists of lung field N17.9 Acute kidney failure, unspecified B37.3 Candidiasis of vulva and vagina I10 Essential (primary) hypertension E78.5 Hyperlipidemia, unspecified Office Visit 05/16/2019 1:[facility] R[facility].8 Other nonspecific Assoc,nguyen Reyes M.D. abnormal finding Hospitalists of lung field B37.3 Candidiasis of vulva and vagina I10 Essential (primary) hypertension E78.5 Hyperlipidemia, unspecified Office Visit 05/15/2019 1:[facility] R[facility].8 Other nonspecific Assoc,nguyen Reyes M.D. abnormal finding Hospitalists of lung field I10 Essential (primary) hypertension E78.5 Hyperlipidemia, unspecified Office Visit 05/15/2019 11:53a Pulmonology And Shannon R91.8 Other nonspecific Sleep Services Of MD Inocencia abnormal finding Snorkelling Instructor of lung field D64.9 Anemia, unspecified D72.829 Elevated white blood cell count, unspecified Z87.891 Personal history of nicotine dependence Office Visit 05/14/2019 1:42p [facility] R91.8 Other nonspecific Assoc,nguyen Reyes M.D. abnormal finding Hospitalists of lung field I10 Essential (primary) hypertension E78.5 Hyperlipidemia, unspecified Office Visit 05/14/2019 11:52a Pulmonology And Shannon R91.8 Other nonspecific Sleep Services Of MD Inocencia abnormal finding Snorkelling Instructor of lung field D64.9 Anemia, unspecified D72.829 Elevated white blood cell count, unspecified Office Visit 05/13/2019 [facility] Junior R91.8 Other nonspecific 1:41p Assoc,nguyen Anaya M.D.,FACP abnormal finding Hospitalists of lung field I10 Essential (primary) hypertension Office Visit 05/13/2019 10:44a Pulmonology And Shannon R91.8 Other nonspecific Sleep Services Of MD Inocencia abnormal finding Snorkelling Instructor of lung field I10 Essential (primary) hypertension Assessments Date Code Description Provider 07/08/2019 N17.9 Acute kidney failure, unspecified Kelly Rodriguez MD 06/04/2019 R06.00 Dyspnea, unspecified Zeina Cespedes M.D. 06/04/2019 R06.00 Dyspnea, unspecified Traveling ECHO 1 05/27/2019 R06.00 Dyspnea, unspecified Tano Robertson MD 05/27/2019 N17.9 Acute kidney failure, unspecified Kelly Rodriguez MD 05/27/2019 R91.8 Other nonspecific abnormal finding Tano Robertson MD of lung field 05/27/2019 R60.1 Generalized edema Kelly Rodriguez MD 05/27/2019 I10 Essential (primary) hypertension Kelly Rodriguez MD 05/27/2019 R60.0 Localized edema Tano Robertson MD 05/27/2019 C34.00 Malignant neoplasm of unspecified Kelly Rodriguez MD main bronchus 05/22/2019 N17.8 Other acute kidney failure Kelly Rodriguez MD 05/22/2019 C34.90 Malignant neoplasm of unspecified Shannonmalinda Pro MD part of unspecified bronchus or lung 05/22/2019 T36.8x5A Adverse effect of other systemic Kelly Rodriguez MD antibiotics, initial encounter 05/22/2019 C34.90 Malignant neoplasm of unspecified Miryam Bright M.D. part of unspecified bronchus or lung 05/22/2019 E87.6 Hypokalemia Kelly Rodriguez MD 05/22/2019 N17.9 Acute kidney failure, unspecified Miryam Bright M.D. 05/22/2019 E87.6 Hypokalemia Miryam Bright M.D. 05/22/2019 I10 Essential (primary) hypertension Miryam Bright M.D. 05/22/2019 E78.5 Hyperlipidemia, unspecified Miryam Bright M.D. 05/21/2019 N17.8 Other acute kidney failure Kelly Rodriguez MD 05/21/2019 R91.8 Other nonspecific abnormal finding Miryam Bright M.D. of lung field 05/21/2019 T36.8x5A Adverse effect of other systemic Kelly Rodriguez MD antibiotics, initial encounter 05/21/2019 I10 Essential (primary) hypertension Miryam Bright M.D. 05/21/2019 N17.9 Acute kidney failure, unspecified Miryam Bright M.D. 05/21/2019 E78.5 Hyperlipidemiaдмитрий M.D. 05/21/2019 B37.3 Candidiasis of vulva and vagina Miryam Bright M.D. 05/20/2019 N17.8 Other acute kidney failure Kelly Rodriguez MD 05/20/2019 T36.8x5A Adverse effect of other systemic Kelly Rodriguez MD antibiotics, initial encounter 05/20/2019 C34.90 Malignant neoplasm of unspecified Shannon Pro MD part of unspecified bronchus or lung 05/20/2019 R91.8 Other nonspecific abnormal finding Miryam Bright M.D. of lung field 05/20/2019 I10 Essential (primary) hypertension Miryam Bright M.D. 05/20/2019 N17.9 Acute kidney failure, unspecified Miryam Bright M.D. 05/20/2019 E78.5 Hyperlipidemia, unspecified Miryam Bright M.D. 05/20/2019 B37.3 Candidiasis of vulva and vagina Miryam Bright M.D. 05/19/2019 N17.8 Other acute kidney failure Kelly Rodriguez MD 05/19/2019 T36.8x5A Adverse effect of other systemic Kelly Rodriguez MD antibiotics, initial encounter 05/19/2019 E87.6 Hypokalemia Kelly Rodriguez MD 05/19/2019 R91.8 Other nonspecific abnormal finding Miryam Bright M.D. of lung field 05/19/2019 R91.8 Other nonspecific abnormal finding Shannon Pro MD of lung field 05/19/2019 I10 Essential (primary) hypertension Miryam Bright M.D. 05/19/2019 C34.90 Malignant neoplasm of unspecified Shannon Pro MD part of unspecified bronchus or lung 05/19/2019 N17.9 Acute kidney failure, unspecified Miryam Bright M.D. 05/19/2019 Z87.891 Personal history of nicotine Shannon Pro MD dependence 05/19/2019 E78.5 Hyperlipidemia, unspecified Miryam Bright M.D. 05/19/2019 B37.3 Candidiasis of vulva and vagina Miryam Bright M.D. 05/18/2019 R91.8 Other nonspecific abnormal finding Cortes Yip M.D. of lung field 05/18/2019 N17.9 Acute kidney failure, unspecified Kelly Rodriguez MD 05/18/2019 N17.9 Acute kidney failure, unspecified Cortes Yip M.D. 05/18/2019 R91.8 Other nonspecific abnormal finding Miryam Bright M.D. of lung field 05/18/2019 E87.6 Hypokalemia Kelly Rodriguez MD 05/18/2019 R91.8 Other nonspecific abnormal finding Shannon Pro MD of lung field 05/18/2019 N17.9 Acute kidney failure, unspecified Miryam Bright M.D. 05/18/2019 R11.0 Nausea Shannon Pro MD 05/18/2019 B37.3 Candidiasis of vulva and vagina Miryam Bright M.D. 05/18/2019 Z87.891 Personal history of nicotine Shannon Pro MD dependence 05/18/2019 I10 Essential (primary) hypertension Miryam Bright M.D. 05/18/2019 E78.5 Hyperlipidemia, unspecified Miryam Bright M.D. 05/17/2019 R91.8 Other nonspecific abnormal finding Cristian Reyes M.D. of lung field 05/17/2019 R91.8 Other nonspecific abnormal finding Shannon Pro MD of lung field 05/17/2019 N17.9 Acute kidney failure, unspecified Cristian Reyes M.D. 05/17/2019 R11.0 Nausea Shannon Pro MD 05/17/2019 B37.3 Candidiasis of vulva and vagina Cristian Reyes M.D. 05/17/2019 I10 Essential (primary) hypertension Cristian Reyes M.D. 05/17/2019 E78.5 Hyperlipidemia, unspecified Cristian Reyes M.D. 05/16/2019 R91.8 Other nonspecific abnormal finding Cristian Reyes M.D. of lung field 05/16/2019 B37.3 Candidiasis of vulva and vagina Cristian Reyes M.D. 05/16/2019 I10 Essential (primary) hypertension Cristian Reyes M.D. 05/16/2019 E78.5 Hyperlipidemia, unspecified Cristian Reyes M.D. 05/15/2019 R91.8 Other nonspecific abnormal finding Cristian Reyes M.D. of lung field 05/15/2019 R91.8 Other nonspecific abnormal finding Shannon Pro MD of lung field 05/15/2019 I10 Essential (primary) hypertension Cristian Reyes M.D. 05/15/2019 D64.9 Anemia, unspecified Shannon Pro MD 05/15/2019 E78.5 Hyperlipidemia, unspecified Cristian Reyes M.D. 05/15/2019 D72.829 Elevated white blood cell count, Shannon Pro MD unspecified 05/15/2019 Z87.891 Personal history of nicotine Shannon Pro MD dependence 05/14/2019 R91.8 Other nonspecific abnormal finding Cristian Reyes M.D. of lung field 05/14/2019 R91.8 Other nonspecific abnormal finding Shannon Pro MD of lung field 05/14/2019 I10 Essential (primary) hypertension Cristian Reyes M.D. 05/14/2019 D64.9 Anemia, unspecified Shannon Pro MD 05/14/2019 E78.5 Hyperlipidemia, unspecified Cristian Reyes M.D. 05/14/2019 D72.829 Elevated white blood cell count, Shannon Pro MD unspecified 05/13/2019 R91.8 Other nonspecific abnormal finding Sylvain Anaya M.D., [facility] of lung field 05/13/2019 R91.8 Other nonspecific abnormal finding Shannon Pro MD of lung field 05/13/2019 I10 Essential (primary) hypertension Sylvain Anaya M.D.,[facility] 05/13/2019 I10 Essential (primary) hypertension Shannon Pro MD Plan of Treatment Future Appointment(s):09/09/2019 3:00 pm - Kelly Rodriguez MD at [facility] [id number] /30/2020 - Kelly Rodriguez MDN17.9 Acute kidney failure, unspecifiedFollow up:2 months Functional Status Description No Information Available Mental Status Description No Information Available Referrals Description No Information Available
[2019-08-13 19:49] LABS: ABS Basophils 0.1 10^3/ul (0-0.2); ABS Eosinophils 0.1 10^3/ul (0-0.6); ABS Monocytes 0.3 10^3/ul (0-0.8); Eosinophil % 2.7 %; Hematocrit 30 % (35-47); Hemoglobin 10.2 g/dL (12.0-16.0); Mean Corpuscular HGB Conc 34 g/dL (31-36); Mean Corpuscular Hemoglobin 28 pg (27-31); Mean Corpuscular Volume 82 fL (80-97); Mean Platelet Volume 7.2 fL (7.4-10.4); Platelet Count 310 10^3/uL (150-450); Red Blood Count 3.63 10^6 /uL (3.70-4.87); Red Cell Distribution Width 17 % (10-15); White Blood Count 3.5 10^3/uL (3.5-10.8)
[2019-08-13 20:07] LABS: Albumin 3.8 g/dL (3.2-5.2); Albumin/Globulin Ratio 1.1 (1-3); BUN/Creatinine Ratio 22.4 (8-20); Calcium 9.9 mg/dL (8.6-10.3); EGFR African American 37.9 (>60); EGFR Non-African American 31.3 (>60); Globulin 3.5 g/dL (2-4); Total Bilirubin 0.5 mg/dL (0.2-1.0); Total Protein 7.3 g/dL (6.4-8.9)
[2019-08-13 20:11] LABS: Potassium 2.6 mmol/L (3.5-5.0)
--- NOTE | 2019-08-13 20:51 | ED ---
Dizziness - HPI Summary HPI Summary: 74 year old F presenting to [facility] with a chief complaint of dizziness, weakness , shortness of breath on exertion, fatigue, lightheadedness, and back pain since she had chemotherapy last week. Patient reports a decreased appetite and some abdominal pain. The patient rates the pain 6/10 in severity. Symptoms aggravated by exertion. Symptoms alleviated by nothing. She last ate around 18: 00 tonight. Patient denies any sore throat, chest pain, vomiting, or diarrhea. She also denies any history of DVT. Medication list reviewed. Allergy list reviewed. Home Medications Medication Instructions Recorded Confirmed Type Ezetimibe/Simvastatin 10 - 40 mg PO DAILY 03/18/18 05/19/19 History [Ezetimibe-Simvastatin 10-40 mg] Acetaminophen TAB* [Tylenol TAB*] 650 mg PO BID PRN 05/13/19 05/19/19 History Cetirizine* [ZyrTEC 10 MG TAB*] 10 mg PO DAILY 05/13/19 05/19/19 History L.acidoph,Paracasei, B.lactis 1 each PO TID 05/13/19 05/19/19 History [Probiotic] Multivitamins/Minerals TAB* 1 tab PO DAILY 05/13/19 05/19/19 History [Theragran/minerals TAB*] Albuterol/Ipratropium RESP(NF) 2 puff INH Q4H PRN #1 aer 05/22/19 Rx [Combivent Respimat (NF)] Aspirin EC TAB* [Ecotrin EC Low 81 mg PO DAILY tab.ec 05/22/19 Rx Dose 81 MG*] NIFEdipine ER TAB* [Procardia Xl 60 mg PO 0800,1700 #60 tab.xl 05/22/19 Rx TAB*] Potassium Chlor TAB* [Klor Con ER 20 meq PO DAILY #3 tab.er 05/22/19 Rx TAB*] - History Of Current Complaint Chief Complaint: EDDizziness Stated Complaint: BLOOD WORK PER SON Time Seen by Provider: 08/13/19 20:44 Hx Obtained From: Patient, Family/Utility Worker [employer] Timing: Constant Severity Currently: Moderate Aggravating Factor(s): Exertion Alleviating Factor(s): Nothing Associated Signs And Symptoms: Positive: Negative - Sore throat, SOB, Other: - Weakness; fatigue; lightheadedness; back pain; decreased appetite; abdominal pain. Negative: Vomiting, Diarrhea, Chest Pain - Allergies/Home Medications Allergies/Adverse Reactions: Allergies Allergy/AdvReac Type Severity Reaction Status Date / Time vancomycin Allergy Unknown Verified 08/13/19 20:49 Reaction Details Home Medications: Home Medications Acetaminophen TAB* [Tylenol TAB*] 650 mg PO BID PRN 05/13/19 [History Confirmed 08/13/19] Cetirizine* [ZyrTEC 10 MG TAB*] 10 mg PO DAILY PRN 05/13/19 [History Confirmed 08/13/19] L.acidoph,Paracasei, B.lactis [Probiotic] 1 each PO TID 05/13/19 [History Confirmed 08/13/19] Multivitamins/Minerals TAB* [Theragran/minerals TAB*] 1 tab PO DAILY 05/13/19 [ History Confirmed 08/13/19] Potassium Chlor TAB* [Klor Con ER TAB*] 20 meq PO DAILY #3 tab.er 05/22/19 [Rx Confirmed 08/13/19] Ezetimibe/Simvastatin [Ezetimibe-Simvastatin 10-40 mg] 1 tab PO DAILY 08/13/19 [ History Confirmed 08/13/19] Fluticasone Propion/Salmeterol [Wixela 250-50 Inhub] 1 puff INH BID 08/13/19 [ History Confirmed 08/13/19] Furosemide TAB* [Lasix TAB*] 40 mg PO DAILY 08/13/19 [History Confirmed 08/13/19 ] Gabapentin CAP(*) [Neurontin 300 CAP(*)] 300 mg PO BEDTIME 08/13/19 [History Confirmed 08/13/19] Nasima Root 550 mg PO TID PRN 08/13/19 [History Confirmed 08/13/19] HYDROcodone/ACETAMIN 5-325 MG* [Cooper 5-325 TAB*] 1 tab PO Q4H PRN 08/13/19 [ History Confirmed 08/13/19] NIFEdipine ER TAB* [Procardia Xl TAB*] 60 mg PO BID 08/13/19 [History Confirmed 08/13/19] Ondansetron TAB* [Zofran 4 MG Tab*] 4 mg PO Q4HR PRN 08/13/19 [History Confirmed 08/13/19] Prochlorperazine 10 mg TAB [Compazine 10 mg TAB] 10 mg PO Q6H PRN 08/13/19 [ History Confirmed 08/13/19] PMH/Surg Hx/FS Hx/Imm Hx Endocrine/Hematology History: Reports: Other Endocrine/Hematological Disorders - Anemia Denies: Hx Diabetes Cardiovascular History: Reports: Hx Hypertension Denies: Hx Congestive Heart Failure, Hx Deep Vein Thrombosis, Hx Pacemaker/ ICD History: Denies: Hx Renal Disease - BODY REJECTED ANTIBIOTIC DAMAGED LIVER Musculoskeletal History: Reports: Hx Arthritis, Hx Osteoporosis Sensory History: Reports: Hx Contacts or Glasses Denies: Hx Hearing Aid Opthamlomology History: Reports: Hx Contacts or Glasses Psychiatric History: Denies: Hx Panic Disorder - Cancer History Cancer Type, Location and Year: LUNG-NO TREATMENT AT THIS TIME 06/11/19 Hx Chemotherapy: No Hx Radiation Therapy: No - Surgical History Surgery Procedure, Year, and Place: x2. D&C. [place] teeth Infectious Disease History: No Infectious Disease History: Denies: Traveled Outside the [place] in Last 30 Days - Family History Known Family History: Negative: Seizure Disorder - Social History Alcohol Use: Occasionally Hx Substance Use: No Substance Use Type: Reports: None Hx Tobacco Use: Yes Smoking Status (MU): Former Smoker Review of Systems Positive: Fatigue, Other - Decreased appetite Negative: Sore Throat Negative: Chest Pain Positive: Shortness Of Breath Positive: Abdominal Pain. Negative: Vomiting, Diarrhea Positive: Other - Back pain Neurological/Mental Status: Other - Dizziness; lightheadedness Positive: Weakness All Other Systems Reviewed And Are Negative: Yes Physical Exam - Summary Physical Exam Summary: Constitutional: Well-developed, Well-nourished, Alert. (-) Distressed; appears weak/fatigued. Skin: Warm, Dry HENT: Normocephalic; Atraumatic Eyes: Conjunctiva normal Neck: Musculoskeletal ROM normal neck. (-) JVD, (-) Stridor, (-) Tracheal deviation Cardio: Rhythm regular, rate normal, Heart sounds normal; Intact distal pulses; The pedal pulses are 2+ and symmetric. Radial pulses are 2+ and symmetric. (-) Murmur Pulmonary/Chest wall: Effort normal. (-) Respiratory distress, (-) Wheezes, (-) Rales Abd: Soft, (-) tenderness, (-) Distension, (-) Guarding, (-) Rebound Musculoskeletal: (-) Edema Lymph: (-) Cervical adenopathy Neuro: Alert, Oriented x3 Psych: Mood and affect Normal Triage Information Reviewed: Yes Vital Signs On Initial Exam: Initial Vitals Temp Pulse Resp BP Pulse Ox 98.3 F 102 18 125/91 98 08/13/19 19:08 08/13/19 19:08 08/13/19 19:08 08/13/19 19:08 08/13/19 19:08 Vital Signs Reviewed: Yes Procedures - Sedation Patient Received Moderate/Deep Sedation with Procedure: No Diagnostics - Vital Signs Vital Signs Temp Pulse Resp BP Pulse Ox 08/13/19 19:08 98.3 F 102 18 125/91 98 - Laboratory Lab Results: Lab Results 08/13/19 08/13/19 Range/Units 19:40 19:40 WBC 3.5 (3.5-10.8) 10^3/uL RBC 3.63 L (3.70-4.87) 10^6 /uL Hgb 10.2 L (12.0-16.0) g/dL Hct 30 L (35-47) % MCV 82 (80-97) fL MCH 28 (27-31) pg MCHC 34 (31-36) g/dL RDW 17 H (10-15) % Plt Count 310 (150-450) 10^3/uL MPV 7.2 L (7.4-10.4) fL Neut % (Auto) 56.7 % Lymph % (Auto) 28.0 % [place] % (Auto) 8.3 % Eos % (Auto) 2.7 % Baso % (Auto) 4.3 % Absolute Neuts (auto) 2.0 (1.5-7.7) 10^3/ul Absolute Lymphs (auto) 1.0 (1.0-4.8) 10^3/ul Absolute Monos (auto) 0.3 (0-0.8) 10^3/ul Absolute Eos (auto) 0.1 (0-0.6) 10^3/ul Absolute Basos (auto) 0.1 (0-0.2) 10^3/ul Absolute Nucleated RBC 0.0 10^3/ul Nucleated RBC % 0.0 Sodium 131 L (135-145) mmol/L Potassium 2.6 L* (3.5-5.0) mmol/L Chloride 88 L (101-111) mmol/L Carbon Dioxide 30 (22-32) mmol/L Anion Gap 13 H (2-11) mmol/L BUN 36 H (6-24) mg/dL Creatinine 1.61 H (0.51-0.95) mg/dL Est GFR ( Amer) 37.9 (>60) Est GFR (Non-Af Amer) 31.3 (>60) BUN/Creatinine Ratio 22.4 H (8-20) Glucose 126 H (70-100) mg/dL Calcium 9.9 (8.6-10.3) mg/dL Total Bilirubin 0.50 (0.2-1.0) mg/dL AST 45 H (13-39) U/L ALT 53 H (7-52) U/L Alkaline Phosphatase 77 (34-104) U/L Total Protein 7.3 (6.4-8.9) g/dL Albumin 3.8 (3.2-5.2) g/dL Globulin 3.5 (2-4) g/dL Albumin/Globulin Ratio 1.1 (1-3) Result Diagrams: 08/13/19 19:40 08/14/19 05:26 Lab Statement: Any lab studies that have been ordered have been reviewed, and results considered in the medical decision making process. - EKG 21:27 Cardiac Rate: NL - 92 BPM EKG Rhythm: Sinus Rhythm Summary of EKG Findings: No ischemic changes. Dr. Saravia has reviewed and interpreted this EKG. Dizzy Course/Dx - Course Course Of Treatment: 74 year old F presenting to [facility] with a chief complaint of dizziness, weakness, shortness of breath on exertion, fatigue, lightheadedness, and back pain since she had chemotherapy last week. Patient reports a decreased appetite and some abdominal pain. Physical exam findings: appears weak/fatigued. An EKG reveals normal sinus rhythm, rate of 92 BPM, no ischemic changes. Laboratory results with no significant abnormalities except for a sodium of 131, potassium of 2.6, chloride of 88, anion gap of 13, BUN of 36, creatinine of 1.61, BUN/creatinine ratio of 22.4, glucose of 126, magnesium of 1.6, AST of 45, ALT of 53, RBC of 3.63, Hgb of 10.2, Hct of 30, RDW of 17, and an MPV of 7.2. In the ED course, the patient was given potassium chloride, magnesium sulfate, and normal saline. The patient was signed out to Dr. Montero at 22:00 pending labs, chest x-ray, and disposition. - Diagnoses Provider Diagnoses: Hypokalemia, Weakness Discharge ED - Sign-Out/Discharge Documenting (check all that apply): Sign-Out Patient Signing out patient TO: Hal Montero - Pending labs, chest x-ray, and disposition. - Discharge Plan Condition: Stable Disposition: ADMITTED TO [facility] - Billing Disposition and Condition Condition: STABLE Disposition: Admitted to [facility] - Attestation Statements Document Initiated by Scribe: Yes Documenting Scribe: Kimberlyn Bonner Provider For Whom Louie is Documenting (Include Credential): José Miugel Saravia DO Scribe Attestation: Kimberlyn Saleh scribed for José Miguel Saravia DO on 08/14/19 at 1028. Scribe Documentation Reviewed: Yes Provider Attestation: The documentation as recorded by the [email or web address] jha accurately reflects the service I personally performed and the decisions made by José Miguel flynn DO Status of Scribe Document: Viewed
[2019-08-13] MEDS ORDERED: NS 0.9% 1000 ML** 1,000 ML IV ONE (20:53)
[2019-08-13] MEDS ORDERED: Potassium Chlor TAB* 20 MEQ TAB.ER PO ONE (20:58)
[2019-08-13] MEDS ORDERED: KCL 10 MEQ/50 ML IVPREMIX* 10 MEQ/50 ML BAG IV ONE (20:58)
[2019-08-13 21:14] LABS: Magnesium 1.6 mg/dL (1.9-2.7)
[2019-08-13] MEDS ORDERED: Magnesium Sulfate 1 GM IV* 1 GM/100 ML BAG IV ONE (21:23)
[2019-08-13 22:02] LABS: Troponin I 0.01 ng/mL (<0.03)
[2019-08-13] MEDS: KCL 20 MEQ/100 ML IVPREMIX* 20 MEQ/100 ML BAG IV SCH (22:17)
--- NOTE | 2019-08-13 23:07 | ED ---
Progress - Progress Note Progress Note: This patient was signed out from Dr. Saravia to Dr. Montero at shift change at 2200 at 08/13/2019, pending disposition, awaiting CXR and lab results. CXR reveals per ED physician right perihilar mass consistent with pt prior history of cancer, smaller than prior study otherwise negative. The patient will be admitted. - Results/Orders Results/Orders: CXR reveals per ED physician right perihilar mass consistent with pt prior history of cancer, smaller than prior study otherwise negative. Pending official radiology report. Course/Dx - Course Course Of Treatment: This patient was signed out from Dr. Saravia to Dr. Montero at shift change at 2200 at 08/13/2019, pending disposition, awaiting CXR and lab results. CXR reveals per ED physician right perihilar mass consistent with pt prior history of cancer, smaller than prior study otherwise negative. Discussed case with Dr. Grimaldo who accepts pt for admission. The patient will be admitted. - Diagnoses Provider Diagnoses: Hypokalemia, Weakness - Provider Notifications Discussed Care Of Patient With: Deo Grimaldo Time Discussed With Above Provider: 01:43 Instructed by Provider To: Other - discussed case with Dr. Grimaldo who accepts pt for admission. Discharge ED - Sign-Out/Discharge Documenting (check all that apply): Patient Departure - Admit - Discharge Plan Condition: Stable Disposition: ADMITTED TO [facility] - Billing Disposition and Condition Condition: STABLE Disposition: Admitted to [facility] - Attestation Statements Document Initiated by Louie: Yes Documenting Scribe: Ayaka Rodriguez Provider For Whom Louie is Documenting (Include Credential): Hal Montero MD Scribyudelka Attestation: Ayaka Saleh, scribed for Hal Montero MD on 08/16/19 at 0108. Scribe Documentation Reviewed: Yes Provider Attestation: The documentation as recorded by the Ayaka ambrosio accurately reflects the service I personally performed and the decisions made by me, Hal Montero MD Status of Scribe Document: Viewed
[2019-08-14] MEDS: KCL 20 MEQ/100 ML IVPREMIX* 20 MEQ/100 ML BAG IV SCH (00:17)
[2019-08-14 01:19] LABS: BUN/Creatinine Ratio 23.9 (8-20); Calcium 9.2 mg/dL (8.6-10.3); EGFR African American 43.8 (>60); EGFR Non-African American 36.2 (>60)
[2019-08-14 01:21] LABS: Potassium 2.6 mmol/L (3.5-5.0)
[2019-08-14] MEDS ORDERED: Ondansetron INJ* 2 MG/ML VIAL IV PRN (01:51)
[2019-08-14] MEDS ORDERED: Ondansetron INJ* 2 MG/ML VIAL IV ONE (01:56)
[2019-08-14] MEDS ORDERED: Acetaminophen TAB* 325 MG PO PRN (01:59)
[2019-08-14] MEDS ORDERED: GINGER ROOT 550 MG PO PRN (01:59)
[2019-08-14] MEDS ORDERED: Cetirizine* 10 MG TAB PO PRN (01:59)
[2019-08-14] MEDS ORDERED: Potassium Chlor TAB* 20 MEQ TAB.ER PO ONE ×2 (02:05→07:48)
[2019-08-14 02:53] LABS: Urine Bacteria Absent (Absent); Urine Red Blood Cell Trace(0-2/hpf) (Absent); Urine Squamous Epithelial Cell Present (Absent); Urine White Blood Cell Trace(0-5/hpf) (Absent)
[2019-08-14 03:09] LABS: Urine Appearance Clear; Urine Bilirubin Negative (Negative); Urine Blood Negative (Negative); Urine Color Yellow; Urine Glucose Negative (Negative); Urine Ketones Negative (Negative); Urine Nitrite Negative (Negative); Urine Protein Negative (Negative); Urine Specific Gravity 1.009 (1.010-1.030); Urine Urobilinogen Negative (Negative)
[2019-08-14] MEDS: NS 0.9% 1000 ML** 1,000 ML IV SCH ×2 (04:21→20:46)
[2019-08-14] MEDS ORDERED: traMADol TAB* 50 MG PO PRN (04:32)
[2019-08-14 05:59] LABS: BUN/Creatinine Ratio 23.2 (8-20); Calcium 9.3 mg/dL (8.6-10.3); EGFR African American 45.2 (>60); EGFR Non-African American 37.4 (>60); Magnesium 1.8 mg/dL (1.9-2.7); Potassium 2.8 mmol/L (3.5-5.0)
[2019-08-14] MEDS ORDERED: Heparin VIAL(*) 5000 UNITS/ML VIAL (FIVE THOUSAND) SUBCUT SCH (06:00)
[2019-08-14] MEDS ORDERED: Magnesium Sulf 4 GM/100 ML IV* 4,000 MG/100 ML BAG IVPB ONE (07:49)
[2019-08-14] MEDS: Docusate CAP* 100 MG PO SCH ×2 (08:01→20:29)
[2019-08-14] MEDS: Ezetimibe TAB* 10 MG PO SCH (08:02)
[2019-08-14] MEDS: Mometasone/Formoter 200/5 MDI INH SCH ×2 (08:09→20:54)
[2019-08-14] MEDS: KCL 10 MEQ/50 ML IVPREMIX* 10 MEQ/50 ML BAG IV SCH ×3 (08:27→14:51)
[2019-08-14] MEDS ORDERED: Atorvastatin* 20 MG TAB PO SCH (09:00)
[2019-08-14] MEDS ORDERED: Potassium Chlor TAB* 20 MEQ TAB.ER PO SCH (09:00)
--- NOTE | 2019-08-14 09:56 | PN ---
Subjective Date of Service: 08/14/19 Interval History: Patient still felt lightheaded, no vertigo. Complained of leg cramping and nonspecific back pain. No fever overnight. Objective Active Medications: Acetaminophen (Tylenol Tab*) 650 mg PO BID PRN PRN Reason: PAIN - MODERATE Hydrocodone Bitart/Acetaminophen ([place] 5-325 Tab*) 1 tab PO Q4H PRN PRN Reason: PAIN - MODERATE Atorvastatin Calcium (Lipitor*) 20 mg PO DAILY PENDING SALE TO [facility] Last Admin: 08/14/19 08:01 Dose: 20 mg Cetirizine HCl (Zyrtec*) 10 mg PO DAILY PRN PRN Reason: Allergy Symptoms Docusate Sodium (Colace Cap*) 100 mg PO BID PENDING SALE TO [facility] Last Admin: 08/14/19 08:01 Dose: 100 mg Ezetimibe (Zetia Tab*) 10 mg PO DAILY PENDING SALE TO [facility] Last Admin: 08/14/19 08:02 Dose: 10 mg Gabapentin (Neurontin Cap(*)) 300 mg PO BEDTIME PENDING SALE TO [facility] Heparin Sodium (Porcine) (Heparin Vial(*)) 5,000 units SUBCUT Q8HR PENDING SALE TO [facility] Last Admin: 08/14/19 05:14 Dose: 5,000 units Sodium Chloride (Ns 0.9% 1000 Ml) 1,000 mls @ 125 mls/hr IV PER RATE PENDING SALE TO [facility] Last Admin: 08/14/19 04:21 Dose: 125 mls/hr Potassium Chloride (Potassium Chloride 10 Meq/50 Ml Ivpremix*) 10 meq in 50 mls @ 50 mls/hr IV Q1H PENDING SALE TO [facility] Stop: 08/14/19 10:59 Last Admin: 08/14/19 08:27 Dose: 50 mls/hr Magnesium Sulfate (Magnesium Sulf 4 Gm/100 Ml Iv*) 4,000 mg in 100 mls @ 33.333 mls/hr IVPB ONCE ONE Stop: 08/14/19 10:48 Mometasone Furoate/Formoterol Fumar (Dulera 200/5 Mdi*) 2 puff INH BID PENDING SALE TO [facility] Last Admin: 08/14/19 08:09 Dose: 2 puff Nifedipine (Procardia Xl Tab*) 60 mg PO BID PENDING SALE TO [facility] Non-Formulary Medication (Nasima Root [Nsaima Root]) 550 mg PO TID PRN PRN Reason: NAUSEA/VOMITING Ondansetron HCl (Zofran Inj*) 4 mg IV Q4H PRN PRN Reason: NAUSEA/VOMITING Potassium Chloride (Klor Con Er Tab*) 20 meq PO DAILY [facility] Last Admin: 08/14/19 08:01 Dose: 20 meq Vital Signs - 8 hr 08/14/19 08/14/19 08/14/19 02:00 02:18 02:43 Temperature 98.6 F Pulse Rate 85 87 88 Respiratory 14 17 20 Rate Blood Pressure 128/69 140/62 (mmHg) O2 Sat by Pulse 96 93 98 Oximetry 08/14/19 08/14/19 08/14/19 02:47 03:00 03:17 Temperature Pulse Rate 87 83 81 Respiratory 21 15 12 Rate Blood Pressure 126/82 139/71 (mmHg) O2 Sat by Pulse 98 96 96 Oximetry 08/14/19 08/14/19 08/14/19 03:38 05:15 07:57 Temperature 98.3 F Pulse Rate 81 Respiratory 12 20 20 Rate Blood Pressure 139/71 (mmHg) O2 Sat by Pulse 96 Oximetry 08/14/19 08:04 Temperature 98.4 F Pulse Rate 85 Respiratory 16 Rate Blood Pressure 118/56 (mmHg) O2 Sat by Pulse 97 Oximetry Oxygen Devices in Use Now: None Exam: Appearance: not in acute distress. Ears/Nose/Mouth/Throat: No Scleral Icterus, PERRLA. Mucous Membranes Moist Neck: NL Appearance and Movements; NL JVP, Trachea Midline Respiratory: Symmetrical Chest Expansion and Respiratory Effort, clear on auscultation. Cardiovascular: NL Sounds; No Murmurs; No JVD, no peripheral edema Abdominal: NL Sounds; No Tenderness; No Distention SPINE: no central spine tenderness. mild paraspinal tenderness near lumbar spine area. Extremities: no cyanosis, no edema Neurological: Alert and Oriented x 4 Result Diagrams: 08/13/19 19:40 08/14/19 05:26 Additional Lab and Data: Lab Results 08/13/19 08/13/19 Range/Units 19:40 19:40 WBC 3.5 (3.5-10.8) 10^3/uL RBC 3.63 L (3.70-4.87) 10^6 /uL Hgb 10.2 L (12.0-16.0) g/dL Hct 30 L (35-47) % MCV 82 (80-97) fL MCH 28 (27-31) pg MCHC 34 (31-36) g/dL RDW 17 H (10-15) % Plt Count 310 (150-450) 10^3/uL MPV 7.2 L (7.4-10.4) fL Neut % (Auto) 56.7 % Lymph % (Auto) 28.0 % [place] % (Auto) 8.3 % Eos % (Auto) 2.7 % Baso % (Auto) 4.3 % Absolute Neuts (auto) 2.0 (1.5-7.7) 10^3/ul Absolute Lymphs (auto) 1.0 (1.0-4.8) 10^3/ul Absolute Monos (auto) 0.3 (0-0.8) 10^3/ul Absolute Eos (auto) 0.1 (0-0.6) 10^3/ul Absolute Basos (auto) 0.1 (0-0.2) 10^3/ul Absolute Nucleated RBC 0.0 10^3/ul Nucleated RBC % 0.0 Sodium 131 L (135-145) mmol/L Potassium 2.6 L* (3.5-5.0) mmol/L Chloride 88 L (101-111) mmol/L Carbon Dioxide 30 (22-32) mmol/L Anion Gap 13 H (2-11) mmol/L BUN 36 H (6-24) mg/dL Creatinine 1.61 H (0.51-0.95) mg/dL Est GFR ( Amer) 37.9 (>60) Est GFR (Non-Af Amer) 31.3 (>60) BUN/Creatinine Ratio 22.4 H (8-20) Glucose 126 H (70-100) mg/dL Calcium 9.9 (8.6-10.3) mg/dL Total Bilirubin 0.50 (0.2-1.0) mg/dL AST 45 H (13-39) U/L ALT 53 H (7-52) U/L Alkaline Phosphatase 77 (34-104) U/L Total Protein 7.3 (6.4-8.9) g/dL Albumin 3.8 (3.2-5.2) g/dL Globulin 3.5 (2-4) g/dL Albumin/Globulin Ratio 1.1 (1-3) Assess/Plan/Problems-Billing Assessment: Hortencia is a 74 y/o female with recent diagnosis of primary lung squamous carcinoma [id number] (subcut nodule) on neoadjuvant chemo [place]o/Taxol/Pemetrexed C3, presented with dizziness, weakness, found to have significant electrolytes disturbances including hypoNa, hypoK, hypochloraremia, hypoMg with no signs of infection - Patient Problems (1) Abnormal blood electrolyte level Current Visit: Yes Status: Acute Code(s): E87.8 - OTH DISORDERS OF ELECTROLYTE AND FLUID BALANCE, NEC SNOMED Code(s): 137970299 Comment: - likely due to side effects of chemo (chemo med related hypoNa hypoK, N&V and poor intake related to chemo) - replace K aggressively, replace Mg - iv ns for hydration - repeat bmp this afternoon. - orthostatic vital signs (2) Lung cancer, primary, with metastasis from lung to other site Current Visit: Yes Status: Acute Code(s): C34.90 - MALIGNANT NEOPLASM OF UNSP PART OF UNSP BRONCHUS OR LUNG SNOMED Code(s): 88237833 Comment: - significant shrinking of lung mass based on CXR - plan for surgery after neoajuvant chemo, do have a plan for restaging imaging afer 4 cycles chemo - I won't do any additional scan as her symptoms seem chemo related, she will follow up oncology Dr. Kitchen outpatient. (3) Transaminitis Current Visit: Yes Status: Acute Code(s): R74.0 - NONSPEC ELEV OF LEVELS OF TRANSAMNS & LACTIC ACID DEHYDRGNSE SNOMED Code(s): 359781534 Comment: - AST 45, ALT 53 - likely chemo related, will trend (4) Neuropathic pain Current Visit: Yes Status: Acute Code(s): M79.2 - NEURALGIA AND NEURITIS, UNSPECIFIED SNOMED Code(s): 524329094 Comment: - possible chemo related - on gabapentin (5) HTN (hypertension) Current Visit: No Status: Acute Code(s): I10 - ESSENTIAL (PRIMARY) HYPERTENSION SNOMED Code(s): 12638957 Comment: well controlled with nifedipine home dose (6) Hyperlipidemia Current Visit: No Status: Acute Code(s): E78.5 - HYPERLIPIDEMIA, UNSPECIFIED SNOMED Code(s): 79452274 Comment: - Continue Atorvastatin. (7) DVT prophylaxis Current Visit: No Status: Acute Code(s): Z29.9 - ENCOUNTER FOR PROPHYLACTIC MEASURES, UNSPECIFIED SNOMED Code(s): 329800363 Comment: - SQ Lovenox Status and Disposition: Inpatient Medicine. 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 Ddx progression of dz with symptomatic mets. #Electrolyte disturbance: Aggressive repletion -Pt is on home furosemide which may need to be d/c moving forward or used with addition of K supplementation #Dizziness: Presumed seuqeula of elyte disturbance, no vertigo or BPPV sx, normal neuro exam, last MRI Jun 2019 showing no metastatic dz -Orthostatics neg -PT eval, continue to monitor #Neuropathic pain: Resultant from chemo, continue anand #Chornic pain: On intermediate opiates at baseline #SCC of Lung: Has surv scans upcoming, can involve onc if no improvement -Pt tolerates chemo poorly though would like to continue all aggressive tx. -Last PET in May showing subcutanoues metastatic dz only, adrenals normal -MRI of brain in Jun 2019 showed no metastatic dz #HTN: Continue Nifedipine #CAD: Not on asa on statin ezitimbe #DVT: Start Lovenox 40mg SC Dispo: Pending symptomatic improvement, BID BMP to follow K PT OT ordered Attestation: This service has been performed in part by a resident under the direction of a teaching physician.I, Beckie Navarrete, performed the service, or was physically present during the critical, or noble portions of the service, furnished by the resident. I participated in the management of the patient.
[2019-08-14] MEDS: NIFEdipine ER TAB* 60 MG PO SCH ×2 (10:57→20:51)
[2019-08-14] MEDS: Enoxaparin(*) 40 MG/0.4 ML SYR SUBCUT SCH (10:58)
--- NOTE | 2019-08-14 11:15 | HP ---
HISTORY AND PHYSICAL: DATE OF ADMISSION: 08/14/19 HISTORY OF PRESENT ILLNESS: This is a 74-year-old female with chief complaint of weakness, dizziness, shortness of breath on exertion, fatigue, lightheadedness, and back pain since she had almanzar d chemotherapy last week. The patient is a cancer patient receiving chemotherapy with Oncology. Her last chemo was last Friday that exacerbated decreased appetite and some abdominal pain. The patient rates the pain 6/10 in severity and her symptoms exacerbated by exertion. The pain is colicky with a ssociated nausea, but the patient has not vomited, but as stated there is decreased appetite. Sympto ms alleviated by nothing. The last time she ate was around 6 p.m. tonight. She denies vomiting or d iarrhea. Also denies chest pain, sore throat. She denied fever. She reported to the ED because of increased weakness and was brought to be evaluated. PAST MEDICAL HISTORY: Includes: 1. Hypertension. 2. Hyperlipidemia. 3. Neuropathic pain. 4. Remote history of CHF. 5. Also remote history of COPD, but not in exacerbation. PAST SURGICAL HISTORY: Includes: 1. section. 2. Appendectomy. 3. Extraction of wisdom teeth. 4. Carpal tunnel repair on the left hand. HOME MEDICATIONS: Include: 1. Simvastatin/ezetimibe ratio of 40/10. 2. Tylenol 650 mg p.o. b.i.d. as needed for pain. 3. Zyrtec 10 mg daily. 4. Probiotic 1 each p.o. t.i.d. 5. Multivitamins/minerals/Theragran 1 tablet p.o. daily. 6. Combivent Respimat 2 puffs INH q.4 p.r.n. for shortness of breath and wheezing. 7. Baby aspirin 1 daily. 8. Procardia extended release 60 mg p.o. twice daily. 9. Potassium chloride 20 mEq daily. 10. Nasima root 550 mg t.i.d. p.r.n. 11. Zofran 4 mg p.o. q.4 as needed for nausea and vomiting. 12. Gabapentin 300 mg at bedtime. 13 Lasix 40 mg p.o. daily. 14. Fluticasone/salmeterol 1 puff INH twice daily. 15. Compazine 10 mg q.6 hours as needed. ALLERGIES: VANCOMYCIN, unknown reaction. FAMILY HISTORY: Her dad had stroke. Mom had rheumatoid arthritis and hypertension. Sister had a hi story of CVA. SOCIAL HISTORY: The patient is a former smoker 1 pack per day. She quit 30 years ago. Reported rar e alcohol consumption. Denied use of illicit drugs. 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 REVIEW OF SYSTEMS: Positive for shortness of breath, positive for abdominal pain, negative for vomit ing, positive for nausea, negative for diarrhea, positive for back pain, positive for dizziness and l ightheadedness, positive for weakness. All other systems were negative. PHYSICAL EXAMINATION GENERAL: The patient constitutionally is well developed, well nourished, alert in no apparent distre ss. Appeared weak and fatigued. VITAL SIGNS: Temperature 98.3, pulse 102, respiratory rate 18, BP 125/91, pulse oximetry 98. HEENT: Normocephalic atraumatic. Eyes: Conjunctiva is normal. NECK: Musculoskeletally range of motion is normal. Necks is supple. Negative JVD. Negative strido r. Negative tracheal deviation. PULMONARY/CHEST WALL: Effort normal. Negative for respiratory distress. No wheezing, no rales. CARDIO: Regular rate and rhythm. S1 and S2 heard. Intact distal pulses. The pedal pulses are 2+ a nd symmetric. Radial pulses 2+ and symmetric. Negative murmur. ABDOMEN: Soft, nontender, nondistended, no guarding, no rebound. MUSCULOSKELETAL: No edema. LYMPH: Negative cervical lymphadenopathy. NEUROLOGIC: The patient is alert, oriented x3. PSYCHOLOGICAL: Mood and affect normal. SKIN: Warm and dry. DIAGNOSTIC STUDIES/LAB DATA: EKG: Normal sinus rhythm. No ischemic changes. Chest x-ray: No abno rmality found, but still awaiting official report. Laboratory report: Hematology: WBC 3.5, RBC 3.63, hemoglobin 10.2, hematocrit 30, MCV 82, MCH 28, M CHC 34, RDW 17, platelet count 310, MPV 7.2. Chemistry: Sodium 131; potassium 2.6, the patient has hypokalemia; chloride 88, carbon dioxide 30, anion gap 13, BUN 36, creatinine 1.61, estimated GFR non - 31.3. BUN and creatinine ratio 22.4. Glucose 126. Calcium 9.9, total bilirubin 0. 50, AST 45, ALT 53, alkaline phosphatase 77, total protein 7.3, albumin 3.8, globulin 3.5, albumin/gl obulin ratio 1.1. ASSESSMENT AND PLAN: A 74-year-old female presenting to the ED with complaints of weakness , dizziness, fatigue, shortness of breath, lightheadedness and history of remote back pain since she has had chemotherapy last week. She will be admitted to the medical floor. Status: Inpatient admis fer. DIAGNOSES: 1. Hypokalemia, hypomagnesemia. Magnesium repleted in the ED. For hypokalemia, the patient will be repleted with p.o. potassium chloride as well as IV piggy back potassium chloride. Follow up BMP an d replete as needed. 2. Dehydration. I will continue with normal saline gentle hydration bearing in mind the patient has a remote cardiac history. 3. For weakness, treatment will be as above. 4. History of cancer. The patient will continue chemotherapy. Follow up with Oncology outpatient. 5. For hypertension, the patient to continue with her home medications with holding parameters. The home meds include Procardia 60 mg twice daily. 6. Chronic obstructive pulmonary disease. The patient to continue with her home inhaler, fluticason e/salmeterol 1 puff twice daily. 7. For neuropathic pain, the patient to continue with gabapentin 300 mg at bedtime. 8. For congestive heart failure, the patient to continue with Lasix 40 mg daily. Monitor BMP and rep lete potassium as needed. The patient has standing order of 20 mEq potassium chloride daily. 9. DVT prophylaxis. Heparin subcu. 10. Code status. Full code. 11. Fluids, electrolytes and nutrition. Diet, healthy heart diet. TIME SPENT: Time spent on this admission is greater than 60 minutes, half of which is spent face-to- face with the patient obtaining my history and physical, the other half of the time was spent going o nikkie plan of care with the patient and implementing plan of care. Than you very much for the opportunity to partake in the healthcare need of this maria esther lady. [id number]/[facility] #: [id number]
[2019-08-14 15:55] LABS: BUN/Creatinine Ratio 21.1 (8-20); Calcium 9.4 mg/dL (8.6-10.3); EGFR African American 49.3 (>60); EGFR Non-African American 40.8 (>60); Potassium 3.5 mmol/L (3.5-5.0)
[2019-08-14] MEDS ORDERED: Gabapentin CAP(*) 300 MG PO SCH (21:00)
[2019-08-14] MEDS: HYDROcodone/ACETAMIN 5-325 MG* 1 TAB PO PRN (21:01)
[2019-08-14] MEDS ORDERED: Cyclobenzaprine TAB* 10 MG PO ONE (23:00)
[2019-08-15] MEDS: NS 0.9% 1000 ML** 1,000 ML IV SCH (06:14)
[2019-08-15 06:45] LABS: ABS Basophils 0.1 10^3/ul (0-0.2); ABS Eosinophils 0.1 10^3/ul (0-0.6); ABS Monocytes 0.5 10^3/ul (0-0.8); ABS Neutrophils 1.7 10^3/ul (1.5-7.7); Eosinophil % 2.6 %; Hematocrit 24 % (35-47); Hemoglobin 8.3 g/dL (12.0-16.0); Lymphocyte % 30.3 %; Mean Corpuscular HGB Conc 34 g/dL (31-36); Mean Corpuscular Hemoglobin 28 pg (27-31); Mean Corpuscular Volume 82 fL (80-97); Nucleated Red Blood Cells % 0.2; Platelet Count 263 10^3/uL (150-450); Red Blood Count 2.97 10^6 /uL (3.70-4.87); Red Cell Distribution Width 18 % (10-15); White Blood Count 3.4 10^3/uL (3.5-10.8)
[2019-08-15 07:02] LABS: BUN/Creatinine Ratio 20.4 (8-20); Calcium 9.1 mg/dL (8.6-10.3); EGFR Non-African American 49.6 (>60); Potassium 3.1 mmol/L (3.5-5.0)
[2019-08-15] MEDS: Mometasone/Formoter 200/5 MDI INH SCH (07:59)
--- NOTE | 2019-08-15 08:18 | PN ---
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 Ddx progression of dz with symptomatic mets. Overnight no acute events, VSS Labs mild hypoK improving This morning, feeling better, tolerating both breakfast and lunch, ambulating to bathroom. Seems generally overwhelmed, but notes a therapetuic relationship with Dr. Kitchen. Biggest issue remains leg pain, and it is relieved by her home hydrocodone. Mild "lightheadedness" but no vision or lynda dizziness, orthostatics neg, no CP or SOB. Objective Active Medications: Acetaminophen (Tylenol Tab*) 650 mg PO BID PRN PRN Reason: PAIN - MODERATE Hydrocodone Bitart/Acetaminophen ([place] 5-325 Tab*) 1 tab PO Q4H PRN PRN Reason: PAIN - MODERATE Last Admin: 08/14/19 21:01 Dose: 1 tab Atorvastatin Calcium (Lipitor*) 20 mg PO DAILY [facility] Last Admin: 08/14/19 08:01 Dose: 20 mg Cetirizine HCl (Zyrtec*) 10 mg PO DAILY PRN PRN Reason: Allergy Symptoms Docusate Sodium (Colace Cap*) 100 mg PO BID [facility] Last Admin: 08/14/19 20:29 Dose: Not Given Ezetimibe (Zetia Tab*) 10 mg PO DAILY [facility] Last Admin: 08/14/19 08:02 Dose: 10 mg Enoxaparin Sodium (Lovenox(*)) 40 mg SUBCUT Q24H [facility] Last Admin: 08/14/19 10:58 Dose: 40 mg Gabapentin (Neurontin Cap(*)) 300 mg PO BEDTIME [facility] Last Admin: 08/14/19 20:29 Dose: 300 mg Sodium Chloride (Ns 0.9% 1000 Ml) 1,000 mls @ 125 mls/hr IV PER RATE [facility] Last Admin: 08/15/19 06:14 Dose: 125 mls/hr Mometasone Furoate/Formoterol Fumar (Dulera 200/5 Mdi*) 2 puff INH BID [facility] Last Admin: 08/15/19 07:59 Dose: 2 puff Nifedipine (Procardia Xl Tab*) 60 mg PO BID [facility] Last Admin: 08/14/19 20:51 Dose: 60 mg Non-Formulary Medication (Nasima Root [Nasima Root]) 550 mg PO TID PRN PRN Reason: NAUSEA/VOMITING Ondansetron HCl (Zofran Inj*) 4 mg IV Q4H PRN PRN Reason: NAUSEA/VOMITING Last Admin: 08/14/19 21:01 Dose: 4 mg Potassium Chloride (Klor Con Er Tab*) 40 meq PO TID [facility] Vital Signs - 8 hr 08/14/19 08/14/19 08/15/19 23:21 23:50 01:25 Temperature 98.7 F Pulse Rate 88 Respiratory 19 18 18 Rate Blood Pressure 122/55 (mmHg) O2 Sat by Pulse 97 Oximetry 08/15/19 04:00 Temperature 98.1 F Pulse Rate 95 Respiratory 18 Rate Blood Pressure 107/46 (mmHg) O2 Sat by Pulse 97 Oximetry Oxygen Devices in Use Now: None Appearance: Well woman in NAD Eyes: No Scleral Icterus, PERRLA, - - No nystagmus Ears/Nose/Mouth/Throat: NL Teeth, Lips, Gums, Clear Oropharnyx Neck: NL Appearance and Movements; NL JVP Respiratory: Symmetrical Chest Expansion and Respiratory Effort, Clear to Auscultation Cardiovascular: NL Sounds; No Murmurs; No JVD, RRR Abdominal: NL Sounds; No Tenderness; No Distention, No Hepatosplenomegaly Lymphatic: No Cervical Adenopathy Extremities: No Edema Skin: No Rash or Ulcers Neurological: Alert and Oriented x 3 Result Diagrams: 08/15/19 06:26 08/15/19 06:26 Additional Lab and Data: Assess/Plan/Problems-Billing Assessment: 74F PMH CHF (no EF on file), HTN, COPD, HLD, 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 Ddx progression of dz with symptomatic mets. - Patient Problems (1) Abnormal blood electrolyte level Current Visit: Yes Status: Acute Code(s): E87.8 - OTH DISORDERS OF ELECTROLYTE AND FLUID BALANCE, NEC SNOMED Code(s): 336392254 Comment: - Likely due to side effects of chemo (chemo med related hypoNa hypoK, N&V and poor intake related to chemo) as well as use of diuretic at home - Continue K replacement - Orthostatic vital signs neg, she is stable for d/c (2) Lung cancer, primary, with metastasis from lung to other site Current Visit: Yes Status: Acute Code(s): C34.90 - MALIGNANT NEOPLASM OF UNSP PART OF UNSP BRONCHUS OR LUNG SNOMED Code(s): 56381692 Comment: - Has repeat scans later this week, by our scans tumor burden has decreased - plan for surgery after neoajuvant chemo, do have a plan for restaging imaging afer 4 cycles chemo (3) Neuropathic pain Current Visit: Yes Status: Acute Code(s): M79.2 - NEURALGIA AND NEURITIS, UNSPECIFIED SNOMED Code(s): 803742818 Comment: - Chemotherapy related, on gabapentin which can be increased to BID on d/c (4) CKD (chronic kidney disease), stage II Current Visit: Yes Status: Acute Code(s): N18.2 - CHRONIC KIDNEY DISEASE, STAGE 2 (MILD) SNOMED Code(s): 949719640 Comment: - Recent injury with Vanc Zosyn in late 2018, slowly improving (5) HTN (hypertension) Current Visit: No Status: Resolved Code(s): I10 - ESSENTIAL (PRIMARY) HYPERTENSION SNOMED Code(s): 71201456 Comment: -Well controlled with nifedipine home dose (6) DVT prophylaxis Current Visit: No Status: Acute Code(s): Z29.9 - ENCOUNTER FOR PROPHYLACTIC MEASURES, UNSPECIFIED SNOMED Code(s): 507524954 Comment: - SQ Lovenox (7) Full code status Current Visit: No Status: Acute Code(s): Z78.9 - OTHER SPECIFIED HEALTH STATUS SNOMED Code(s): 912653986 Status and Disposition: Inpatient Medicine. Stable for d/c to home
[2019-08-15 08:32] LABS: Albumin 3.3 g/dL (3.2-5.2); Albumin/Globulin Ratio 1.2 (1-3); Globulin 2.7 g/dL (2-4); Indirect Bilirubin 0.2 mg/dL (0.3-1.0); Total Bilirubin 0.3 mg/dL (0.2-1.0)
[2019-08-15] MEDS: Ezetimibe TAB* 10 MG PO SCH (10:09)
[2019-08-15] MEDS: HYDROcodone/ACETAMIN 5-325 MG* 1 TAB PO PRN ×2 (10:09→14:25)
[2019-08-15] MEDS: Potassium Chlor TAB* 20 MEQ TAB.ER PO SCH ×2 (10:10→13:14)
[2019-08-15] MEDS: Enoxaparin(*) 40 MG/0.4 ML SYR SUBCUT SCH (10:11)
[2019-08-15] MEDS: NIFEdipine ER TAB* 60 MG PO SCH (10:11)
[2019-08-15] MEDS: Docusate CAP* 100 MG PO SCH (10:11)
[2019-08-15 14:19] VITALS: BP 132/61
--- NOTE | 2019-08-15 20:58 | DS ---
CC: Dr. Billy Angel; Dr. Justyna Kitchen DISCHARGE SUMMARY: DATE OF ADMISSION: 08/13/19 DATE OF DISCHARGE: 08/15/19 PRIMARY CARE PROVIDER: Dr. Billy Angel. ONCOLOGIST: Dr. Justyna Kitchen. DISPOSITION AT THE TIME OF DISCHARGE: Stable to be discharged to home. PRIMARY DIAGNOSES: 1. Hypokalemia and dehydration secondary to side effects of chemotherapy and Lasix use. 2. Acute kidney injury in the setting of chronic kidney disease from recent antibiotic injury. SECONDARY DIAGNOSES: 1. Heart failure, unclassified as no ejection fraction on file in this medical record. 2. Hypertension. 3. Chronic obstructive pulmonary disease. 4. Hyperlipidemia. 5. 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 6. Chronic kidney disease, stage 2, resolving. Kidney disease is thought to be side effects from an tibiotics. MEDICATIONS AT THE TIME OF DISCHARGE: 1. Acetaminophen 650 mg p.o. b.i.d. p.r.n. 2. Cetirizine 10 mg p.o. daily. 3. Ezetimibe/simvastatin 10/40 mg 1 tab p.o. daily. 4. Fluticasone/salmeterol 250/50 one puff inhaled b.i.d. 5. Gabapentin 300 mg p.o. b.i.d. 6. Nasima root 550 mg p.o. t.i.d. 7. Hydrocodone/acetaminophen 5/325 one tab p.o. q.4 hours p.r.n. for pain. 8. Nifedipine 60 mg p.o. b.i.d. 9. Potassium chloride 20 mEq p.o. b.i.d. 10. Probiotic 1 tab p.o. t.i.d. 11. Multivitamin 1 tab daily. 12. Ondansetron 4 mg p.o. q.4 hours p.r.n. for nausea. 13. Compazine 10 mg p.o. q.6 hours p.r.n. for nausea. Medication changes on this hospitalization are: 1. The discontinuation of Lasix 20 mg p.o. daily. 2. The up-titration of gabapentin to 300 mg p.o. b.i.d. 3. The up-titration of potassium chloride from 20 mEq p.o. daily to 20 mEq p.o. b.i.d. HISTORY OF PRESENT ILLNESS AND HOSPITAL COURSE: A 74-year-old female with above past medical history , who presented to the emergency room with complaints of lightheadedness, weakness, shortness of raisa th on exertion, fatigue, back pain, and leg pain since she had chemotherapy 5 days prior to admission . She reports that since chemotherapy finished she had a decreased appetite, some abdominal pain, po or p.o. intake and that her neuropathic leg pain had intensified. It got to the point where she had difficulty ambulating, felt dizzy and lightheaded because of poor p.o. intake and decided to present to the emergency room. In the ER, her vital signs were stable. Her labs were notable for profound h ypokalemia at 2.6 and mild CATIE, creatinine of 1.61. Because of her CATIE, profound hypokalemia and sym ptoms, the hospitalist team was asked to admit this patient for symptomatic treatment of what was pre sumed to be side effects to chemotherapy and dehydration in the setting of ongoing Lasix use. Her ho spital course by problem is as follows: 1. Dizziness and lightheadedness. Orthostatics were done, which showed no evidence of orthostatic h ypotension. She was repleted with 3 L of IV fluids with significant improvement over the course of h er hospitalization and she was able to ambulate safely by day of discharge. She had aggressive reple tion of her electrolyte disturbances including potassium and magnesium with improvement between 3.1 a nd 3.5 on the day of discharge. Furthermore, her Lasix was discontinued. She had symptomatic improv ement with rehydration and aggressive electrolyte repletion and thus the differential for her initial dizziness which included progression of her disease seems less likely. She had a normal neuro exam. No evidence of nystagmus or lynda symptoms of vertigo and she participated with physical therapy an d showed safe ambulation. 2. Electrolyte disturbances. As per above, this was thought to be from chemotherapy, dehydration, a nd ongoing use of Lasix. Her Lasix was discontinued and this should be reevaluated by her primary on cologist at her upcoming followup. 3. CATIE on CKD. The patient has had recent CKD secondary to antibiotic injury when her lung cancer w as initially discovered. Her creatinine at its peak was around 3 and in this hospitalization improve d to its jason for the last few months, which was 1.08. On the day of discharge, she is making excel lent urine. She has no other concerning electrolyte disturbances aside from the hypokalemia and mild hyponatremia, which improved with hydration and repletion. Urinalysis was clear. 4. Stage IV lung cancer. The patient has been undergoing carbo/Taxol and plans for restaging scans at next Oncology appointment. Repeat scans were not repeated during this hospitalization as the focu s was on symptomatic treatment and because she improved, there was no indication to further look into the differential. 5. Pain. The patient has significant neuropathic pain. Her gabapentin was up- titrated and hydroco done was continued. 6. Hypertension. Her nifedipine dose was continued and her Lasix was held. She remained normotensi ve without Lasix. 7. Heart failure with ? unknown ejection fraction. The patient may need volume control in the near future, although this can be decided on a basis of outpatient. Her significant hypokalemia was more s ymptomatic than her previous symptoms of mild volume overload. LABS AND STUDIES DONE DURING THIS HOSPITALIZATION: Labs on the day of discharge: White blood cell co unt is 3.4, hemoglobin is 8, hematocrit 24, platelets 263. BMP: Sodium 134, potassium 3.1, chloride 103, carbon dioxide 25, anion gap 6, BUN 22, creatinine 1.08. AST and ALT 30 and 34 on the day of di scharge. Urinalysis unremarkable. Chest x-ray showed a relative decrease in the size of her primary lung mass measuring now 3 x 3 cm, w hich is a notable decrease from the 6.8 x 6 cm in May of 2019. Furthermore, there was partial r esolution of the left lung base. EKG showed normal sinus rhythm with no signs of acute ischemia. CONSULTANTS: None. ITEMS TO FOLLOW UP ON STATUS POST DISCHARGE: 1. Symptomatic dehydration in the setting of Lasix use. The patient may need to restart Lasix in e near future, although at this juncture it is reasonable to hold while she continues to have such pr ofound hypokalemia and poor p.o. intake shortly after her chemotherapy. She is to follow up with her oncologist the following week for repeat scans and to discuss medical reconciliation. 2. Neuropathic pain. Her gabapentin was up-titrated. Her hydrocodone dose remained the same. She appears functional and able to engage with activities of daily living at this dose. 3. Stage IV SCC of the lung. The patient is undergoing repeat scans. Her chest x- ray from this ho spitalization was encouraging given the marked decrease in size. Per the patient, she is considering surgery after initial neoadjuvant chemotherapy. TIME SPENT: Forty minutes was spent on the planning of this discharge with over half of that was spe nt directly at the bedside of the patient providing direct patient care. Plan of care was discussed with the patient and her family. They have no further questions. They kn ow to follow up with Dr. Kitchen on 08/18/19 and that appointment has been scheduled for them. She ca n follow up with primary care as needed. [id number]/[facility] #: [id number]
== END 2019-08-15 15:40 | disposition home or self-care (01) | DRG 641 ==
LOC: ED 19:04 → MEDTELE 08-14 01:51
PROVIDERS: ADMIT Family Medicine; ATTEND Internal Medicine
DX: E86.0 Dehydration (principal); N17.9 Acute kidney failure, unspecified; C34.90 Malignant neoplasm of unspecified part of unspecified bronchus or lung; C79.89 Secondary malignant neoplasm of other specified sites; I13.0 Hypertensive heart and chronic kidney disease with heart failure and stage 1 through stage 4 chronic kidney disease, or unspecified chronic kidney disease; E87.6 Hypokalemia; E87.1 Hypo-osmolality and hyponatremia; E78.5 Hyperlipidemia, unspecified; I50.9 Heart failure, unspecified; J44.9 Chronic obstructive pulmonary disease, unspecified; E83.42 Hypomagnesemia; G62.9 Polyneuropathy, unspecified; M19.90 Unspecified osteoarthritis, unspecified site; M81.0 Age-related osteoporosis without current pathological fracture; N18.2 Chronic kidney disease, stage 2 (mild); E87.8 Other disorders of electrolyte and fluid balance, not elsewhere classified; R74.0 Nonspecific elevation of levels of transaminase and lactic acid dehydrogenase [LDH]; G89.29 Other chronic pain; T45.1X5A Adverse effect of antineoplastic and immunosuppressive drugs, initial encounter; T50.1X5A Adverse effect of loop [high-ceiling] diuretics, initial encounter; I25.10 Atherosclerotic heart disease of native coronary artery without angina pectoris; Z28.21 Immunization not carried out because of patient refusal; Z79.899 Other long term (current) drug therapy; Z79.82 Long term (current) use of aspirin; Z88.1 Allergy status to other antibiotic agents; Z87.891 Personal history of nicotine dependence; Y92.9 Unspecified place or not applicable
CPT/HCPCS: 36415; 71045; 80048; 80053; 80076; 81003; 83735; 83880; 84484; 85025; 87086; 93005; 94640; 96365; 99285; A9270-GY; J1644; J1650; J2405; J3475; J3480

== ENCOUNTER 2019-09-17 08:48 | Day surgery (SDC) | payer MEDICARE ==
[~2019-09-17 08:48] MED LIST: Buffered Lidocaine 1% SYRIN* 1 ML/SYRINGE INTRADERM ONE; Lactated Ringers 1000 ML Bag* 1,000 ML IV SCH
[2019-09-17] MEDS ORDERED: Midazolam* 1 MG/ML 2 ML VIAL (2 MG) ONE (09:05)
[2019-09-17] MEDS ORDERED: ceFAZolin 2 GM PREMIX in ORs 2 GM/50 ML BAG ONE (09:33)
[2019-09-17] MEDS ORDERED: Buffered Lidocaine 1% SYRIN* 1 ML/SYRINGE INTRADERM ONE (09:33)
[2019-09-17] MEDS ORDERED: Lidocaine 1% INJ* 10 MG/ML 30 ML SDV ONE (09:49)
[2019-09-17] MEDS ORDERED: ceFAZolin* 2 GM* ONE DOSE (Duplex) IVPB (11:00)
[2019-09-17] MEDS ORDERED: Acetaminophen TAB* 325 MG PO PRN (11:09)
[2019-09-17] MEDS ORDERED: Ondansetron INJ* 2 MG/ML VIAL IV PRN (11:09)
[2019-09-17] MEDS ORDERED: Ketorolac INJ* 30 MG/ML 1 ML VIAL IV PRN (11:09)
[2019-09-17] MEDS ORDERED: Naloxone* 0.4 MG/ML 1 ML VIAL IV PRN (11:09)
--- NOTE | 2019-09-17 11:53 | OP ---
Operative Report - Blank - Operative Report Date of Operation: 09/17/19 Note: PREOP DX: RIGHT LUNG CA POSTOP DX: SAME PROC:POWERPORT PLACEMENT RIGHT IJ SURG:MECENAS ASSIST:NONE ANES:LOCAL/MAC;ANAHI EBL:<10ML IVF:CRYSTALLOID SPEC:NONE DRAIN:NONE COMPL:NONE COND:STABLE TO PACU FINDINGS: ABOVE.
[2019-09-17] MEDS ORDERED: Ketorolac INJ* 30 MG/ML 1 ML VIAL ONE (12:06)
[2019-09-17] MEDS ORDERED: HYDROcodone/ACETAMIN 5-325 MG* 1 TAB ONE (12:16)
[2019-09-17 13:23] VITALS: BP 127/70
--- NOTE | 2019-09-18 14:05 | OP ---
OPERATIVE REPORT: DATE OF OPERATION: 09/17/19 - [facility] DATE OF : 45 SURGEON: Chuckie Valencia MD BINDING BENCH WORKER: None. ANESTHESIOLOGIST: Whitney Kolb DO ANESTHESIA: Local MAC. PRE-OP DIAGNOSIS: Right lung cancer. POST-OP DIAGNOSIS: Right lung cancer. OPERATIVE PROCEDURE: PowerPort placement via right internal jugular approach. ESTIMATED BLOOD LOSS: Minimal. IV FLUIDS: Crystalloid. SPECIMENS: None. DRAINS: None. COMPLICATIONS: None. COUNTS: The instrument, needle, and sponge counts were correct. DESCRIPTION OF PROCEDURE: The patient was brought to the operating room and placed on the table supine. Sequential compression devices were placed on both lower extremities. Intravenous sedation was administered and she was positioned and padded appropriately. After sterile prep and drape and after receiving appropriate intravenous antibiotics, a time-out was performed. Local anesthetic was infiltrated into the skin and soft tissue prior to making each incision. An attempt was made at a right subclavian approach without access to the vein. Subsequently, a right internal jugular approach was undertaken after additional local anesthetic was infiltrated and with use of the ultrasound guidance. After accessing the internal jugular vein, a guidewire was placed into the superior vena cava and its position confirmed under fluoroscopy. Additional anesthetic was then infiltrated into the right upper chest and along the course of the proposed subcutaneous tunnel. A transverse incision was made in the right upper chest. Subcutaneous tissues were divided and then a subcutaneous pocket was created. A counter incision was made at the guidewire insertion site and then the 8-Ind[place]ian PowerPort catheter was back tunneled from the insertion site to the pocket. Peel-away sheath and introducer were advanced under fluoroscopic guidance into the superior vena cava and the dilator and wire were removed, then the catheter advanced placing the tip at the atriocaval junction. Catheter was then cut to approximately 28 cm, at which point it was connected to the port. The port was placed into the subcutaneous pocket and secured with a single suture of 2-0 Prolene. The port was then accessed with a Schneider needle, it michael and flushed easily. The pocket was closed in 2 layers with 3-0 Vicryl for the subcutaneous tissues, 4-0 Monocryl for the skin. The counter incision was closed in the same fashion. Steri- Strips were applied. A butterfly access needle was placed into the port and flushed with heparinized saline. Tegaderm dressing was placed over this. The patient tolerated the procedure well and was then transferred to Recovery stable. [id number]/[facility] #: [id number] [facility]iLv
== END 2019-09-17 13:23 | disposition home or self-care (01) ==
LOC: OR 08:48
PROVIDERS: ATTEND Surgery
DX: C34.31 Malignant neoplasm of lower lobe, right bronchus or lung (principal); D72.829 Elevated white blood cell count, unspecified; R68.3 Clubbing of fingers; D64.9 Anemia, unspecified; I10 Essential (primary) hypertension; E78.5 Hyperlipidemia, unspecified; M18.0 Bilateral primary osteoarthritis of first carpometacarpal joints; M19.90 Unspecified osteoarthritis, unspecified site; Z87.891 Personal history of nicotine dependence; G62.9 Polyneuropathy, unspecified
CPT/HCPCS: 71045; 76000; C1788; J0690; J1642; J1885; J2250

== ENCOUNTER 2020-03-06 10:08 | Inpatient (IN) ==
[~2020-03-06 10:08] MED LIST changes: -Buffered Lidocaine 1% SYRIN* 1 ML/SYRINGE INTRADERM ONE; -Lactated Ringers 1000 ML Bag* 1,000 ML IV SCH; +PACLITAXEL PROTEIN BOUND IVPB SCH
[2020-03-06 10:22] LABS: ABS Basophils 0.1 10^3/ul (0-0.2); ABS Eosinophils 0.1 10^3/ul (0-0.6); ABS Lymphocytes 1.1 10^3/ul (1.0-4.8); ABS Monocytes 0.5 10^3/ul (0-0.8); ABS Neutrophils 4.4 10^3/ul (1.5-7.7); ABS Nucleated RBC 0.1 10^3/ul; Eosinophil % 1.4 %; Hematocrit 30 % (35-47); Hemoglobin 9.9 g/dL (12.0-16.0); Mean Corpuscular HGB Conc 33 g/dL (31-36); Mean Corpuscular Hemoglobin 34 pg (27-31); Mean Corpuscular Volume 101 fL (80-97); Mean Platelet Volume 8.4 fL (7.4-10.4); Nucleated Red Blood Cells % 1.7; Platelet Count 386 10^3/uL (150-450); Red Blood Count 2.93 10^6 /uL (3.70-4.87); Red Cell Distribution Width 21 % (10-15); White Blood Count 6.2 10^3/uL (3.5-10.8)
[2020-03-06 10:40] LABS: Albumin 3.6 g/dL (3.2-5.2); Albumin/Globulin Ratio 1.2 (1-3); BUN/Creatinine Ratio 15.2 (8-20); Calcium 8.8 mg/dL (8.6-10.3); EGFR African American 47.5 (>60); EGFR Non-African American 39.2 (>60); Globulin 2.9 g/dL (2-4); Potassium 3.9 mmol/L (3.5-5.0); Total Bilirubin 0.7 mg/dL (0.2-1.0); Total Protein 6.5 g/dL (6.4-8.9)
[2020-03-06] MEDS ORDERED: Ondansetron 4 mg VIAL 2 MG/ML 2 ml VIAL IV PRN (12:46)
[2020-03-06] MEDS ORDERED: Ondansetron 4 mg VIAL 2 MG/ML 2 ml VIAL ONE (12:57)
[2020-03-06] MEDS ORDERED: Enoxaparin 30 MG/0.3 ML SYR SUBCUT SCH (13:00)
[2020-03-06] MEDS ORDERED: Prochlorperazine 5 mg/ml 2 ml VIAL (10 mg) IV ONE (14:30)
[2020-03-06 16:37] LABS: INR 1.23 (0.82-1.09)
[2020-03-06 17:59] LABS: Body Fluid Source Pleural Fluid
[2020-03-06 19:13] LABS: Body Fluid Mono 15 %; Body Fluid Other Cells 4
[2020-03-06] MEDS: Mometasone/Formoter 200/5 MDI INH SCH (19:55)
[2020-03-06] MEDS: Potassium Chlor 20 meq TAB.ER PO SCH (21:15)
[2020-03-07 05:57] LABS: ABS Eosinophils 0.1 10^3/ul (0-0.6); ABS Lymphocytes 0.9 10^3/ul (1.0-4.8); ABS Monocytes 0.6 10^3/ul (0-0.8); ABS Neutrophils 3.9 10^3/ul (1.5-7.7); ABS Nucleated RBC 0.1 10^3/ul; Eosinophil % 2.2 %; Hematocrit 29 % (35-47); Hemoglobin 9.8 g/dL (12.0-16.0); Lymphocyte % 16.4 %; Mean Corpuscular HGB Conc 34 g/dL (31-36); Mean Corpuscular Hemoglobin 34 pg (27-31); Mean Corpuscular Volume 101 fL (80-97); Mean Platelet Volume 8.8 fL (7.4-10.4); Nucleated Red Blood Cells % 1.7; Platelet Count 344 10^3/uL (150-450); Red Blood Count 2.89 10^6 /uL (3.70-4.87); Red Cell Distribution Width 21 % (10-15); White Blood Count 5.5 10^3/uL (3.5-10.8)
[2020-03-07 06:14] LABS: Albumin 3.2 g/dL (3.2-5.2); Albumin/Globulin Ratio 1.1 (1-3); Calcium 8.4 mg/dL (8.6-10.3); EGFR African American 51.5 (>60); EGFR Non-African American 42.6 (>60); Globulin 2.8 g/dL (2-4); Total Bilirubin 0.6 mg/dL (0.2-1.0)
[2020-03-07] MEDS: Multivitamins/Minerals TAB PO SCH (07:42)
[2020-03-07] MEDS: Potassium Chlor 20 meq TAB.ER PO SCH ×2 (07:42→20:15)
[2020-03-07] MEDS: Mometasone/Formoter 200/5 MDI INH SCH ×2 (09:27→20:01)
[2020-03-07 10:02] LABS: Troponin I 0.06 ng/mL (<0.03)
[2020-03-07] MEDS: Enoxaparin 30 MG/0.3 ML SYR SUBCUT SCH (12:31)
[2020-03-07] MEDS ORDERED: Iodixanol (CONTRAST) 320 MG/ML 100 ML SDV IV ONE (14:09)
[2020-03-07] MEDS ORDERED: Furosemide 20 mg/2 ml IV VIAL IV ONE (17:49)
[2020-03-08 04:42] LABS: ABS Basophils 0.1 10^3/ul (0-0.2); ABS Eosinophils 0.1 10^3/ul (0-0.6); ABS Lymphocytes 0.9 10^3/ul (1.0-4.8); ABS Monocytes 0.8 10^3/ul (0-0.8); ABS Neutrophils 4.1 10^3/ul (1.5-7.7); Eosinophil % 2.2 %; Hematocrit 31 % (35-47); Hemoglobin 10.1 g/dL (12.0-16.0); Lymphocyte % 15.3 %; Mean Corpuscular HGB Conc 33 g/dL (31-36); Mean Corpuscular Hemoglobin 33 pg (27-31); Mean Corpuscular Volume 100 fL (80-97); Nucleated Red Blood Cells % 0.4; Platelet Count 399 10^3/uL (150-450); Red Cell Distribution Width 21 % (10-15); White Blood Count 6.1 10^3/uL (3.5-10.8)
[2020-03-08 04:59] LABS: ALT 16 U/L (7-52); AST 26 U/L (13-39); Albumin 3.3 g/dL (3.2-5.2); Albumin/Globulin Ratio 1.1 (1-3); Alkaline Phosphatase 62 U/L (34-104); Anion Gap 8 mmol/L (2-11); BUN/Creatinine Ratio 13.4 (8-20); Blood Urea Nitrogen 18 mg/dL (6-24); CO2 Carbon Dioxide 23 mmol/L (22-32); Calcium 8.8 mg/dL (8.6-10.3); Chloride 106 mmol/L (101-111); EGFR African American 46.7 (>60); EGFR Non-African American 38.6 (>60); Globulin 2.9 g/dL (2-4); Glucose 86 mg/dL (70-100); Potassium 3.6 mmol/L (3.5-5.0); Sodium 137 mmol/L (135-145); Total Protein 6.2 g/dL (6.4-8.9)
[2020-03-08] MEDS: Mometasone/Formoter 200/5 MDI INH SCH ×2 (08:01→19:17)
[2020-03-08] MEDS: Multivitamins/Minerals TAB PO SCH (08:04)
[2020-03-08] MEDS: Potassium Chlor 20 meq TAB.ER PO SCH ×2 (08:04→20:08)
[2020-03-08 08:21] LABS: Magnesium 1.8 mg/dL (1.9-2.7)
[2020-03-08 08:37] LABS: Troponin I 0.06 ng/mL (<0.03)
[2020-03-08] MEDS ORDERED: Potassium Chloride LIQUID 20 MEQ/15 ML LIQUID PO ONE (08:38)
[2020-03-08] MEDS ORDERED: Furosemide 40 mg/4 ml IV VIAL IV SLOW PU ONE (10:02)
[2020-03-08] MEDS ORDERED: Furosemide 40 mg/4 ml IV VIAL IV ONE (10:48)
[2020-03-08 13:23] LABS: Fluid Type, Protein, Total PLEURAL
[2020-03-08] MEDS: Enoxaparin 30 MG/0.3 ML SYR SUBCUT SCH (13:40)
[2020-03-09] MEDS: Mometasone/Formoter 200/5 MDI INH SCH ×3 (07:36→21:47)
[2020-03-09] MEDS: Multivitamins/Minerals TAB PO SCH (08:11)
[2020-03-09] MEDS: Potassium Chlor 20 meq TAB.ER PO SCH ×2 (08:13→20:03)
[2020-03-09 08:38] LABS: BUN/Creatinine Ratio 17.2 (8-20); Calcium 8.5 mg/dL (8.6-10.3); EGFR African American 49.2 (>60); EGFR Non-African American 40.7 (>60); Magnesium 1.9 mg/dL (1.9-2.7); Potassium 3.8 mmol/L (3.5-5.0)
[2020-03-09] MEDS ORDERED: Potassium Chlor 20 meq TAB.ER PO ONE (09:13)
[2020-03-09] MEDS: Dextran 70/Hypromellose Tears Eye Drops 15 ml BTL (for Artificials Tears) BOTH EYES PRN ×2 (10:21→19:57)
[2020-03-09] MEDS: Enoxaparin 30 MG/0.3 ML SYR SUBCUT SCH (12:43)
[2020-03-10] MEDS: Dextran 70/Hypromellose Tears Eye Drops 15 ml BTL (for Artificials Tears) BOTH EYES PRN (01:00)
[2020-03-10] MEDS ORDERED: Potassium Chlor 20 meq TAB.ER PO ONE (08:51)
[2020-03-10] MEDS: Potassium Chlor 20 meq TAB.ER PO SCH ×2 (09:15→19:48)
[2020-03-10] MEDS: Multivitamins/Minerals TAB PO SCH (09:15)
[2020-03-10] MEDS: Mometasone/Formoter 200/5 MDI INH SCH ×2 (09:35→19:33)
[2020-03-10] MEDS: Enoxaparin 30 MG/0.3 ML SYR SUBCUT SCH (14:43)
[2020-03-10] MEDS: Naphazoline/Pheniramine OPTH 5 ML BTL BOTH EYES SCH ×3 (14:43→19:49)
[2020-03-11] MEDS: HYDROcodone/ACETAMIN 5/325 mg TAB PO PRN (07:32)
[2020-03-11] MEDS: Mometasone/Formoter 200/5 MDI INH SCH ×2 (07:41→19:52)
[2020-03-11] MEDS: Potassium Chlor 20 meq TAB.ER PO SCH ×2 (08:34→19:48)
[2020-03-11] MEDS: Multivitamins/Minerals TAB PO SCH (08:36)
[2020-03-11] MEDS: Naphazoline/Pheniramine OPTH 5 ML BTL BOTH EYES SCH ×4 (08:38→19:50)
[2020-03-11] MEDS: Enoxaparin 30 MG/0.3 ML SYR SUBCUT SCH (12:45)
[2020-03-11 14:41] LABS: Lactate Dehydrogenase, BF 139 U/L
[2020-03-12 05:29] LABS: Hematocrit 29 % (35-47); Hemoglobin 9.8 g/dL (12.0-16.0); Mean Corpuscular HGB Conc 34 g/dL (31-36); Mean Corpuscular Hemoglobin 32 pg (27-31); Mean Corpuscular Volume 97 fL (80-97); Mean Platelet Volume 7.9 fL (7.4-10.4); Platelet Count 287 10^3/uL (150-450); Red Blood Count 3.01 10^6 /uL (3.70-4.87); Red Cell Distribution Width 22 % (10-15); White Blood Count 9.5 10^3/uL (3.5-10.8)
[2020-03-12 06:08] LABS: Albumin 2.9 g/dL (3.2-5.2); BUN/Creatinine Ratio 18.8 (8-20); Calcium 8.4 mg/dL (8.6-10.3); EGFR African American 57.4 (>60); EGFR Non-African American 47.4 (>60); Total Bilirubin 0.7 mg/dL (0.2-1.0); Total Protein 5.9 g/dL (6.4-8.9)
[2020-03-12 06:22] LABS: ABS Basophils 0.1 10^3/ul (0-0.2); ABS Eosinophils 0.1 10^3/ul (0-0.6); ABS Lymphocytes 0.9 10^3/ul (1.0-4.8); ABS Monocytes 1.8 10^3/ul (0-0.8); ABS Neutrophils 6.6 10^3/ul (1.5-7.7); Eosinophil % 0.9 %; Lymphocyte % 9.9 %
[2020-03-12] MEDS: Potassium Chlor 20 meq TAB.ER PO SCH ×2 (07:52→20:42)
[2020-03-12] MEDS: Multivitamins/Minerals TAB PO SCH (07:52)
[2020-03-12] MEDS: HYDROcodone/ACETAMIN 5/325 mg TAB PO PRN ×2 (07:52→20:41)
[2020-03-12] MEDS: Naphazoline/Pheniramine OPTH 5 ML BTL BOTH EYES SCH ×4 (07:57→20:42)
[2020-03-12] MEDS: Mometasone/Formoter 200/5 MDI INH SCH ×2 (08:26→20:29)
[2020-03-12] MEDS: Enoxaparin 30 MG/0.3 ML SYR SUBCUT SCH (12:01)
[2020-03-13] MEDS: Mometasone/Formoter 200/5 MDI INH SCH ×2 (07:48→19:08)
[2020-03-13] MEDS: Multivitamins/Minerals TAB PO SCH (08:01)
[2020-03-13] MEDS: Naphazoline/Pheniramine OPTH 5 ML BTL BOTH EYES SCH ×4 (08:02→20:08)
[2020-03-13] MEDS: Potassium Chlor 20 meq TAB.ER PO SCH ×2 (08:02→20:07)
[2020-03-13] MEDS: HYDROcodone/ACETAMIN 5/325 mg TAB PO PRN (09:58)
[2020-03-13] MEDS: Enoxaparin 30 MG/0.3 ML SYR SUBCUT SCH (12:20)
[2020-03-14 06:32] LABS: ABS Basophils 0.1 10^3/ul (0-0.2); ABS Lymphocytes 0.7 10^3/ul (1.0-4.8); ABS Monocytes 1.1 10^3/ul (0-0.8); ABS Neutrophils 6.6 10^3/ul (1.5-7.7); Hematocrit 27 % (35-47); Hemoglobin 9.1 g/dL (12.0-16.0); Lymphocyte % 8.5 %; Mean Corpuscular HGB Conc 33 g/dL (31-36); Mean Corpuscular Hemoglobin 31 pg (27-31); Mean Corpuscular Volume 94 fL (80-97); Mean Platelet Volume 8.1 fL (7.4-10.4); Platelet Count 321 10^3/uL (150-450); Red Blood Count 2.91 10^6 /uL (3.70-4.87); Red Cell Distribution Width 23 % (10-15); White Blood Count 8.5 10^3/uL (3.5-10.8)
[2020-03-14 06:34] LABS: Albumin/Globulin Ratio 0.9 (1-3); Calcium 9.2 mg/dL (8.6-10.3); EGFR African American 47.5 (>60); EGFR Non-African American 39.2 (>60); Globulin 3.3 g/dL (2-4); Potassium 4.3 mmol/L (3.5-5.0); Total Bilirubin 0.3 mg/dL (0.2-1.0); Total Protein 6.3 g/dL (6.4-8.9)
[2020-03-14] MEDS: Mometasone/Formoter 200/5 MDI INH SCH ×2 (08:58→19:45)
[2020-03-14] MEDS: Multivitamins/Minerals TAB PO SCH (09:27)
[2020-03-14] MEDS: Potassium Chlor 20 meq TAB.ER PO SCH ×2 (09:30→20:10)
[2020-03-14] MEDS: Naphazoline/Pheniramine OPTH 5 ML BTL BOTH EYES SCH ×4 (09:32→20:09)
[2020-03-14] MEDS: Enoxaparin 30 MG/0.3 ML SYR SUBCUT SCH (14:24)
[2020-03-14] MEDS: Polyethylene Glycol 3350 17 GM PACKET PO PRN (23:08)
[2020-03-15 06:44] LABS: ABS Basophils 0.1 10^3/ul (0-0.2); ABS Lymphocytes 1.1 10^3/ul (1.0-4.8); ABS Monocytes 1.1 10^3/ul (0-0.8); ABS Neutrophils 9.6 10^3/ul (1.5-7.7); Hematocrit 29 % (35-47); Hemoglobin 9.3 g/dL (12.0-16.0); Lymphocyte % 9.3 %; Mean Corpuscular HGB Conc 32 g/dL (31-36); Mean Corpuscular Hemoglobin 31 pg (27-31); Mean Corpuscular Volume 95 fL (80-97); Mean Platelet Volume 8.3 fL (7.4-10.4); Platelet Count 402 10^3/uL (150-450); Red Blood Count 3.03 10^6 /uL (3.70-4.87); Red Cell Distribution Width 23 % (10-15); White Blood Count 11.9 10^3/uL (3.5-10.8)
[2020-03-15 06:59] LABS: Albumin 3.2 g/dL (3.2-5.2); Albumin/Globulin Ratio 0.9 (1-3); Calcium 9.4 mg/dL (8.6-10.3); EGFR African American 54.6 (>60); EGFR Non-African American 45.1 (>60); Globulin 3.5 g/dL (2-4); Potassium 4.4 mmol/L (3.5-5.0); Total Bilirubin 0.3 mg/dL (0.2-1.0); Total Protein 6.7 g/dL (6.4-8.9)
[2020-03-15] MEDS: Naphazoline/Pheniramine OPTH 5 ML BTL BOTH EYES SCH ×4 (07:52→21:00)
[2020-03-15] MEDS: Multivitamins/Minerals TAB PO SCH (07:54)
[2020-03-15] MEDS: Potassium Chlor 20 meq TAB.ER PO SCH ×2 (07:55→20:59)
[2020-03-15] MEDS: Mometasone/Formoter 200/5 MDI INH SCH ×2 (09:53→20:29)
[2020-03-15] MEDS: Enoxaparin 30 MG/0.3 ML SYR SUBCUT SCH (12:36)
[2020-03-16] MEDS: Polyethylene Glycol 3350 17 GM PACKET PO PRN (04:20)
[2020-03-16] MEDS: Multivitamins/Minerals TAB PO SCH (10:31)
[2020-03-16] MEDS: Potassium Chlor 20 meq TAB.ER PO SCH ×2 (10:33→22:07)
[2020-03-16] MEDS: Naphazoline/Pheniramine OPTH 5 ML BTL BOTH EYES SCH ×4 (10:42→22:10)
[2020-03-16] MEDS: Mometasone/Formoter 200/5 MDI INH SCH ×2 (11:04→21:30)
[2020-03-16] MEDS: Enoxaparin 30 MG/0.3 ML SYR SUBCUT SCH (13:06)
[2020-03-17] MEDS: Mometasone/Formoter 200/5 MDI INH SCH ×2 (07:42→19:25)
[2020-03-17 09:33] LABS: ABS Basophils 0.1 10^3/ul (0-0.2); ABS Lymphocytes 1.4 10^3/ul (1.0-4.8); ABS Monocytes 0.7 10^3/ul (0-0.8); ABS Neutrophils 11.2 10^3/ul (1.5-7.7); Hematocrit 35 % (35-47); Hemoglobin 11.3 g/dL (12.0-16.0); Lymphocyte % 10.6 %; Mean Corpuscular HGB Conc 33 g/dL (31-36); Mean Corpuscular Hemoglobin 30 pg (27-31); Mean Corpuscular Volume 93 fL (80-97); Mean Platelet Volume 7.7 fL (7.4-10.4); Platelet Count 556 10^3/uL (150-450); Red Blood Count 3.74 10^6 /uL (3.70-4.87); Red Cell Distribution Width 24 % (10-15); White Blood Count 13.4 10^3/uL (3.5-10.8)
[2020-03-17 09:49] LABS: Albumin 3.3 g/dL (3.2-5.2); Albumin/Globulin Ratio 0.9 (1-3); BUN/Creatinine Ratio 37.4 (8-20); Calcium 9.4 mg/dL (8.6-10.3); EGFR African American 60.5 (>60); Globulin 3.6 g/dL (2-4); Potassium 4.1 mmol/L (3.5-5.0); Total Bilirubin 0.4 mg/dL (0.2-1.0); Total Protein 6.9 g/dL (6.4-8.9)
[2020-03-17] MEDS: Potassium Chlor 20 meq TAB.ER PO SCH ×2 (10:37→22:21)
[2020-03-17] MEDS: Multivitamins/Minerals TAB PO SCH (10:39)
[2020-03-17] MEDS: Naphazoline/Pheniramine OPTH 5 ML BTL BOTH EYES SCH ×4 (10:44→22:17)
[2020-03-17] MEDS: Enoxaparin 30 MG/0.3 ML SYR SUBCUT SCH (14:07)
[2020-03-17] MEDS: Polyethylene Glycol 3350 17 GM PACKET PO PRN (18:22)
[2020-03-18] MEDS: Mometasone/Formoter 200/5 MDI INH SCH ×2 (09:42→20:34)
[2020-03-18] MEDS: Potassium Chlor 20 meq TAB.ER PO SCH ×2 (10:50→20:06)
[2020-03-18] MEDS: Multivitamins/Minerals TAB PO SCH (10:51)
[2020-03-18] MEDS: Naphazoline/Pheniramine OPTH 5 ML BTL BOTH EYES SCH ×4 (13:07→20:04)
[2020-03-18] MEDS: Enoxaparin 30 MG/0.3 ML SYR SUBCUT SCH (13:08)
[2020-03-19] MEDS: Mometasone/Formoter 200/5 MDI INH SCH ×2 (08:06→20:04)
[2020-03-19] MEDS: Multivitamins/Minerals TAB PO SCH (09:04)
[2020-03-19] MEDS: Potassium Chlor 20 meq TAB.ER PO SCH ×2 (09:05→21:49)
[2020-03-19] MEDS: Naphazoline/Pheniramine OPTH 5 ML BTL BOTH EYES SCH ×4 (09:06→21:50)
[2020-03-19 13:10] LABS: ABS Basophils 0.1 10^3/ul (0-0.2); ABS Lymphocytes 1.7 10^3/ul (1.0-4.8); ABS Monocytes 0.9 10^3/ul (0-0.8); ABS Neutrophils 14.2 10^3/ul (1.5-7.7); Hematocrit 35 % (35-47); Hemoglobin 10.8 g/dL (12.0-16.0); Lymphocyte % 9.9 %; Mean Corpuscular HGB Conc 31 g/dL (31-36); Mean Corpuscular Hemoglobin 29 pg (27-31); Mean Corpuscular Volume 94 fL (80-97); Mean Platelet Volume 7.8 fL (7.4-10.4); Platelet Count 558 10^3/uL (150-450); Red Blood Count 3.68 10^6 /uL (3.70-4.87); Red Cell Distribution Width 24 % (10-15); White Blood Count 16.9 10^3/uL (3.5-10.8)
[2020-03-19] MEDS: Enoxaparin 30 MG/0.3 ML SYR SUBCUT SCH (13:13)
[2020-03-19 15:10] LABS: Albumin 3.5 g/dL (3.2-5.2); Calcium 9.5 mg/dL (8.6-10.3); EGFR African American 46.3 (>60); EGFR Non-African American 38.2 (>60); Globulin 3.6 g/dL (2-4); Potassium 4.5 mmol/L (3.5-5.0); Total Bilirubin 0.4 mg/dL (0.2-1.0); Total Protein 7.1 g/dL (6.4-8.9)
[2020-03-20] MEDS: Mometasone/Formoter 200/5 MDI INH SCH (07:31)
[2020-03-20] MEDS: Potassium Chlor 20 meq TAB.ER PO SCH (08:23)
[2020-03-20] MEDS: Naphazoline/Pheniramine OPTH 5 ML BTL BOTH EYES SCH ×2 (08:23→12:21)
[2020-03-20] MEDS: Multivitamins/Minerals TAB PO SCH (08:23)
[2020-03-20 11:24] VITALS: BP 129/70
[2020-03-20] MEDS: Enoxaparin 30 MG/0.3 ML SYR SUBCUT SCH (12:20)
== END 2020-03-20 14:15 | disposition home health service (06) | DRG 205 ==
LOC: CHOA 10:08 → MEDTELE 10:08 → ICU 03-07 15:37 → MEDTELE 03-10 10:27 → MED 03-15 20:13
PROVIDERS: ADMIT Internal Medicine Hematology & Oncology; ATTEND Internal Medicine Hematology & Oncology

== ENCOUNTER 2020-12-24 14:31 | Inpatient (IN) ==
[2020-12-24] MEDS ORDERED: HYDROcodone/ACETAMIN 5/325 mg TAB PO ONE (16:09)
[2020-12-24] MEDS ORDERED: Enoxaparin 40 MG/0.4 ML SYR SUBCUT SCH (22:00)
[2020-12-24 22:22] LABS: Rapid COVID-19 Molecular Undetected (Undetected)
[2020-12-24] MEDS ORDERED: NFT: Albuterol/Ipratropium RESP(NF) MDI (Combivent Respimat) INH PRN (22:56)
[2020-12-24] MEDS ORDERED: Polyethylene Glycol 3350 17 GM PACKET PO PRN (23:10)
[2020-12-25 00:51] LABS: ABS Basophils 0.1 10^3/ul (0-0.2); ABS Eosinophils 0.1 10^3/ul (0-0.6); ABS Monocytes 0.8 10^3/ul (0-0.8); ABS Neutrophils 5.3 10^3/ul (1.5-7.7); Eosinophil % 0.7 %; Hematocrit 38 % (35-47); Hemoglobin 12.4 g/dL (12.0-16.0); Lymphocyte % 24.2 %; Mean Corpuscular HGB Conc 33 g/dL (31-36); Mean Corpuscular Hemoglobin 30 pg (27-31); Mean Corpuscular Volume 90 fL (80-97); Platelet Count 248 10^3/uL (150-450); Red Blood Count 4.21 10^6 /uL (3.70-4.87); Red Cell Distribution Width 20 % (10-15); White Blood Count 8.2 10^3/uL (3.5-10.8)
[2020-12-25 00:59] LABS: Albumin 3.6 g/dL (3.2-5.2); Albumin/Globulin Ratio 1.3 (1-3); Calcium 9.9 mg/dL (8.6-10.3); EGFR African American 49.2 (>60); EGFR Non-African American 40.7 (>60); Globulin 2.7 g/dL (2-4); Magnesium 1.7 mg/dL (1.9-2.7); Potassium 4.1 mmol/L (3.5-5.0); Total Bilirubin 0.3 mg/dL (0.2-1.0); Total Protein 6.3 g/dL (6.4-8.9)
[2020-12-25 01:26] LABS: Vitamin D Total 25(OH) 27.7 ng/mL (20-50)
[2020-12-25] MEDS: SALMETEROL INH SCH ×2 (08:32→19:47)
[2020-12-25] MEDS ORDERED: Prochlorperazine 5 mg/ml 2 ml VIAL (10 mg) IV PRN (08:32)
[2020-12-25] MEDS: FLUTICASONE PROPIONATE INH SCH ×2 (08:32→19:47)
[2020-12-25] MEDS: Ondansetron 4 mg VIAL 2 MG/ML 2 ml VIAL IV PRN (08:48)
[2020-12-25] MEDS: Vitamin THERAPEUTIC TAB PO SCH (08:49)
[2020-12-25] MEDS: Morphine 2 MG/ML SYRINGE IV PRN (11:02)
[2020-12-25] MEDS ORDERED: Enoxaparin 40 MG/0.4 ML SYR SUBCUT ONE (16:54)
[2020-12-26 05:43] LABS: ABS Basophils 0.1 10^3/ul (0-0.2); ABS Eosinophils 0.1 10^3/ul (0-0.6); ABS Lymphocytes 1.8 10^3/ul (1.0-4.8); ABS Monocytes 0.8 10^3/ul (0-0.8); ABS Neutrophils 5.1 10^3/ul (1.5-7.7); Eosinophil % 0.9 %; Hematocrit 40 % (35-47); Lymphocyte % 22.7 %; Mean Corpuscular HGB Conc 33 g/dL (31-36); Mean Corpuscular Hemoglobin 29 pg (27-31); Mean Corpuscular Volume 90 fL (80-97); Mean Platelet Volume 7.9 fL (7.4-10.4); Nucleated Red Blood Cells % 0.1; Platelet Count 244 10^3/uL (150-450); Red Blood Count 4.43 10^6 /uL (3.70-4.87); Red Cell Distribution Width 19 % (10-15); White Blood Count 7.8 10^3/uL (3.5-10.8)
[2020-12-26 05:52] LABS: INR 1.04 (0.86-1.15)
[2020-12-26 05:58] LABS: Calcium 9.9 mg/dL (8.6-10.3); Potassium 4.1 mmol/L (3.5-5.0)
[2020-12-26 06:04] LABS: EGFR African American 56.2 (>60); EGFR Non-African American 46.5 (>60)
[2020-12-26] MEDS: FLUTICASONE PROPIONATE INH SCH ×2 (08:05→19:17)
[2020-12-26] MEDS: SALMETEROL INH SCH ×2 (08:05→19:17)
[2020-12-26] MEDS: Vitamin THERAPEUTIC TAB PO SCH (10:04)
[2020-12-26] MEDS: Morphine 2 MG/ML SYRINGE IV PRN ×3 (11:07→22:55)
[2020-12-26] MEDS: Ondansetron 4 mg VIAL 2 MG/ML 2 ml VIAL IV PRN (22:55)
[2020-12-27] MEDS: Morphine 2 MG/ML SYRINGE IV PRN ×2 (03:24→08:32)
[2020-12-27 06:24] LABS: ABS Basophils 0.1 10^3/ul (0-0.2); ABS Eosinophils 0.1 10^3/ul (0-0.6); ABS Lymphocytes 1.7 10^3/ul (1.0-4.8); ABS Monocytes 1.2 10^3/ul (0-0.8); ABS Neutrophils 7.5 10^3/ul (1.5-7.7); Eosinophil % 0.5 %; Hematocrit 38 % (35-47); Hemoglobin 12.6 g/dL (12.0-16.0); Lymphocyte % 16.1 %; Mean Corpuscular HGB Conc 33 g/dL (31-36); Mean Corpuscular Hemoglobin 29 pg (27-31); Mean Corpuscular Volume 90 fL (80-97); Platelet Count 224 10^3/uL (150-450); Red Blood Count 4.28 10^6 /uL (3.70-4.87); Red Cell Distribution Width 19 % (10-15); White Blood Count 10.4 10^3/uL (3.5-10.8)
[2020-12-27 06:29] LABS: INR 1.03 (0.86-1.15)
[2020-12-27 06:45] LABS: Calcium 9.7 mg/dL (8.6-10.3); EGFR African American 56.8 (>60); EGFR Non-African American 46.9 (>60); Potassium 4.1 mmol/L (3.5-5.0)
[2020-12-27] MEDS: Vitamin THERAPEUTIC TAB PO SCH (08:18)
[2020-12-27] MEDS ORDERED: Famotidine IV 10 MG/ML 2 ml VIAL (20 mg) IV ONE (09:22)
[2020-12-27] MEDS: SALMETEROL INH SCH ×2 (11:39→20:23)
[2020-12-27] MEDS: FLUTICASONE PROPIONATE INH SCH ×2 (11:39→20:23)
[2020-12-27] MEDS: Lactated Ringers 1000 ml BAG 1,000 ML IV SCH ×2 (12:15→19:31)
[2020-12-27] MEDS ORDERED: Bupivacaine 0.25% SDV 30 ML ONE (12:50)
[2020-12-27] MEDS ORDERED: fentaNYL 100 mcg/2 ml 50 MCG/ML VIAL ONE ×6 (12:54→18:27)
[2020-12-27] MEDS ORDERED: Lidocaine 2% PF 5 ML VIAL ONE (12:54)
[2020-12-27] MEDS ORDERED: Midazolam 2 mg/2 ml VIAL 1 mg/ml 2 ml VIAL (2 mg) ONE (12:54)
[2020-12-27] MEDS ORDERED: ceFAZolin 2 GM in NS PREMIX 2 GM/100 ML BAG IVPB ONE (13:27)
[2020-12-27] MEDS ORDERED: Rocuronium 50 mg VIAL 10 mg/ml 5 ml VIAL (50 mg) ONE (13:46)
[2020-12-27] MEDS ORDERED: Naloxone 0.4 mg VIAL 0.4 mg/ml 1 ml VIAL IV PRN (14:50)
[2020-12-27] MEDS ORDERED: Ondansetron 4 mg VIAL 2 MG/ML 2 ml VIAL IV PRN (14:50)
[2020-12-27] MEDS ORDERED: Ondansetron 4 mg VIAL 2 MG/ML 2 ml VIAL ONE (15:56)
[2020-12-27] MEDS: fentaNYL 100 mcg/2 ml 50 MCG/ML VIAL IV PRN ×5 (16:41→18:28)
[2020-12-27] MEDS ORDERED: Metoprolol Tartrate 5 mg VIAL 5 ml VIAL (1 mg/ml) IV PRN (17:37)
[2020-12-27] MEDS ORDERED: Metoprolol Tartrate 5 mg VIAL 5 ml VIAL (1 mg/ml) ONE (17:41)
[2020-12-27] MEDS ORDERED: oxyCODONE/Acetamin 5/325 mg TAB PO ONE (17:46)
[2020-12-27] MEDS ORDERED: oxyCODONE/Acetamin 5/325 mg TAB ONE (17:48)
[2020-12-28] MEDS: Morphine 2 MG/ML SYRINGE IV PRN ×3 (02:52→22:04)
[2020-12-28] MEDS: Lactated Ringers 1000 ml BAG 1,000 ML IV SCH (04:34)
[2020-12-28 06:19] LABS: ABS Basophils 0.1 10^3/ul (0-0.2); ABS Lymphocytes 1.5 10^3/ul (1.0-4.8); ABS Monocytes 1.2 10^3/ul (0-0.8); ABS Neutrophils 7.9 10^3/ul (1.5-7.7); Eosinophil % 0.1 %; Hematocrit 34 % (35-47); Hemoglobin 11.1 g/dL (12.0-16.0); Lymphocyte % 13.7 %; Mean Corpuscular HGB Conc 33 g/dL (31-36); Mean Corpuscular Hemoglobin 30 pg (27-31); Mean Corpuscular Volume 90 fL (80-97); Mean Platelet Volume 8.2 fL (7.4-10.4); Platelet Count 189 10^3/uL (150-450); Red Blood Count 3.74 10^6 /uL (3.70-4.87); Red Cell Distribution Width 19 % (10-15); White Blood Count 10.7 10^3/uL (3.5-10.8)
[2020-12-28 06:34] LABS: Calcium 9.2 mg/dL (8.6-10.3); EGFR African American 62.5 (>60); EGFR Non-African American 51.7 (>60); Magnesium 1.7 mg/dL (1.9-2.7); Potassium 3.9 mmol/L (3.5-5.0)
[2020-12-28] MEDS: ceFAZolin 1 GM X 3 DOSES POST-OP Q8H (AddVan) IVPB SCH ×2 (09:45→16:37)
[2020-12-28] MEDS: Vitamin THERAPEUTIC TAB PO SCH (09:49)
[2020-12-28] MEDS: FLUTICASONE PROPIONATE INH SCH ×2 (09:49→21:54)
[2020-12-28] MEDS: SALMETEROL INH SCH ×2 (09:49→21:54)
[2020-12-28] MEDS: Enoxaparin 40 MG/0.4 ML SYR SUBCUT SCH (11:32)
[2020-12-28] MEDS ORDERED: oxyCODONE/Acetamin 5/325 mg TAB PO PRN (12:24)
[2020-12-28] MEDS ORDERED: Magnesium Sulfate 2 gm BAG 2 GM/50 ML BAG IVPB ONE (14:45)
[2020-12-28] MEDS: oxyCODONE/Acetamin 5/325 mg TAB PO PRN (23:22)
[2020-12-29] MEDS: ceFAZolin 1 GM X 3 DOSES POST-OP Q8H (AddVan) IVPB SCH (01:36)
[2020-12-29 04:55] LABS: ABS Basophils 0.1 10^3/ul (0-0.2); ABS Eosinophils 0.1 10^3/ul (0-0.6); ABS Lymphocytes 1.5 10^3/ul (1.0-4.8); ABS Neutrophils 7.2 10^3/ul (1.5-7.7); Eosinophil % 1.5 %; Hematocrit 30 % (35-47); Hemoglobin 9.9 g/dL (12.0-16.0); Lymphocyte % 15.1 %; Mean Corpuscular HGB Conc 33 g/dL (31-36); Mean Corpuscular Hemoglobin 30 pg (27-31); Mean Corpuscular Volume 89 fL (80-97); Mean Platelet Volume 7.7 fL (7.4-10.4); Platelet Count 160 10^3/uL (150-450); Red Blood Count 3.33 10^6 /uL (3.70-4.87); Red Cell Distribution Width 18 % (10-15); White Blood Count 9.9 10^3/uL (3.5-10.8)
[2020-12-29 05:11] LABS: EGFR African American 68.6 (>60); EGFR Non-African American 56.7 (>60); Magnesium 2.2 mg/dL (1.9-2.7); Potassium 3.9 mmol/L (3.5-5.0)
[2020-12-29] MEDS: SALMETEROL INH SCH ×2 (07:40→21:08)
[2020-12-29] MEDS: FLUTICASONE PROPIONATE INH SCH ×2 (07:40→21:08)
[2020-12-29] MEDS ORDERED: Magnesium Hydroxide LIQ 30 ML UDC PO PRN (08:40)
[2020-12-29] MEDS ORDERED: Senna TAB 8.6 mg TAB PO PRN (08:40)
[2020-12-29] MEDS: Ondansetron 4 mg VIAL 2 MG/ML 2 ml VIAL IV PRN (09:03)
[2020-12-29] MEDS: oxyCODONE/Acetamin 5/325 mg TAB PO PRN ×3 (09:08→21:49)
[2020-12-29] MEDS: Vitamin THERAPEUTIC TAB PO SCH (09:13)
[2020-12-29] MEDS: Magnesium Hydroxide LIQ 30 ML UDC PO SCH ×2 (09:16→21:49)
[2020-12-29] MEDS: Enoxaparin 40 MG/0.4 ML SYR SUBCUT SCH (13:40)
[2020-12-30 06:21] LABS: ABS Basophils 0.1 10^3/ul (0-0.2); ABS Eosinophils 0.2 10^3/ul (0-0.6); ABS Lymphocytes 1.3 10^3/ul (1.0-4.8); ABS Monocytes 0.9 10^3/ul (0-0.8); Eosinophil % 2.3 %; Hematocrit 28 % (35-47); Hemoglobin 9.2 g/dL (12.0-16.0); Lymphocyte % 15.8 %; Mean Corpuscular HGB Conc 33 g/dL (31-36); Mean Corpuscular Hemoglobin 30 pg (27-31); Mean Corpuscular Volume 89 fL (80-97); Mean Platelet Volume 8.3 fL (7.4-10.4); Platelet Count 163 10^3/uL (150-450); Red Cell Distribution Width 18 % (10-15); White Blood Count 8.5 10^3/uL (3.5-10.8)
[2020-12-30 06:32] LABS: EGFR African American 64.7 (>60); EGFR Non-African American 53.4 (>60)
[2020-12-30] MEDS: Magnesium Hydroxide LIQ 30 ML UDC PO SCH (08:18)
[2020-12-30] MEDS: Vitamin THERAPEUTIC TAB PO SCH (08:18)
[2020-12-30] MEDS: Morphine 2 MG/ML SYRINGE IV PRN ×2 (08:18→22:32)
[2020-12-30] MEDS: SALMETEROL INH SCH ×2 (08:19→20:45)
[2020-12-30] MEDS: FLUTICASONE PROPIONATE INH SCH ×2 (08:19→20:45)
[2020-12-30] MEDS: oxyCODONE/Acetamin 5/325 mg TAB PO PRN ×2 (11:05→18:27)
[2020-12-30 11:09] LABS: Urine Appearance Clear; Urine Bilirubin Negative (Negative); Urine Blood Negative (Negative); Urine Color Yellow; Urine Glucose Negative (Negative); Urine Ketones Negative (Negative); Urine Nitrite Negative (Negative); Urine Protein 1+(30 mg/dL) (Negative); Urine Specific Gravity 1.024 (1.002-1.030); Urine Urobilinogen Negative (Negative)
[2020-12-30 11:13] LABS: Urine Bacteria 1+ (Absent); Urine Red Blood Cell 1+(3-5/hpf) (Absent); Urine Squamous Epithelial Cell Present (Absent); Urine White Blood Cell Trace(0-5/hpf) (Absent)
[2020-12-30] MEDS ORDERED: NS 0.9% 500 ml BAG 500 ML IV ONE (11:53)
[2020-12-30] MEDS: Enoxaparin 40 MG/0.4 ML SYR SUBCUT SCH (12:16)
[2020-12-30] MEDS: Polyethylene Glycol 3350 17 GM PACKET PO SCH (12:17)
[2020-12-31] MEDS: oxyCODONE/Acetamin 5/325 mg TAB PO PRN ×3 (04:37→18:21)
[2020-12-31 08:02] LABS: ABS Eosinophils 0.3 10^3/ul (0-0.6); ABS Lymphocytes 1.2 10^3/ul (1.0-4.8); ABS Monocytes 0.7 10^3/ul (0-0.8); ABS Neutrophils 4.7 10^3/ul (1.5-7.7); Eosinophil % 4.1 %; Hematocrit 27 % (35-47); Hemoglobin 9.1 g/dL (12.0-16.0); Lymphocyte % 17.8 %; Mean Corpuscular HGB Conc 34 g/dL (31-36); Mean Corpuscular Hemoglobin 30 pg (27-31); Mean Corpuscular Volume 89 fL (80-97); Platelet Count 176 10^3/uL (150-450); Red Blood Count 3.04 10^6 /uL (3.70-4.87); Red Cell Distribution Width 19 % (10-15)
[2020-12-31] MEDS: FLUTICASONE PROPIONATE INH SCH ×2 (08:42→20:05)
[2020-12-31] MEDS: SALMETEROL INH SCH ×2 (08:42→20:05)
[2020-12-31] MEDS: Vitamin THERAPEUTIC TAB PO SCH (08:47)
[2020-12-31] MEDS: Polyethylene Glycol 3350 17 GM PACKET PO SCH (08:47)
[2020-12-31 09:42] LABS: ABS Basophils 0.1 10^3/ul (0-0.2); ABS Eosinophils 0.3 10^3/ul (0-0.6); ABS Lymphocytes 1.4 10^3/ul (1.0-4.8); ABS Monocytes 0.7 10^3/ul (0-0.8); ABS Neutrophils 4.7 10^3/ul (1.5-7.7); Eosinophil % 3.8 %; Hematocrit 28 % (35-47); Hemoglobin 9.1 g/dL (12.0-16.0); Lymphocyte % 19.4 %; Mean Corpuscular HGB Conc 33 g/dL (31-36); Mean Corpuscular Hemoglobin 29 pg (27-31); Mean Corpuscular Volume 90 fL (80-97); Mean Platelet Volume 8.2 fL (7.4-10.4); Nucleated Red Blood Cells % 0.1; Platelet Count 182 10^3/uL (150-450); Red Blood Count 3.11 10^6 /uL (3.70-4.87); Red Cell Distribution Width 19 % (10-15); White Blood Count 7.1 10^3/uL (3.5-10.8)
[2020-12-31 10:05] LABS: EGFR African American 75.8 (>60); EGFR Non-African American 62.6 (>60); Potassium 3.8 mmol/L (3.5-5.0)
[2020-12-31] MEDS: Enoxaparin 40 MG/0.4 ML SYR SUBCUT SCH (12:38)
[2020-12-31 17:19] LABS: Urine Appearance Cloudy; Urine Bilirubin Negative (Negative); Urine Blood Negative (Negative); Urine Color Yellow; Urine Glucose Negative (Negative); Urine Ketones Negative (Negative); Urine Nitrite Negative (Negative); Urine Protein 1+(30 mg/dL) (Negative); Urine Specific Gravity 1.021 (1.002-1.030); Urine Urobilinogen Negative (Negative)
[2020-12-31 17:27] LABS: Urine Bacteria Absent (Absent); Urine Red Blood Cell Trace(0-2/hpf) (Absent); Urine Squamous Epithelial Cell Present (Absent); Urine White Blood Cell Trace(0-5/hpf) (Absent)
[2021-01-01] MEDS: oxyCODONE/Acetamin 5/325 mg TAB PO PRN ×3 (05:08→19:08)
[2021-01-01 05:25] LABS: Hematocrit 27 % (35-47); Hemoglobin 8.7 g/dL (12.0-16.0); Mean Platelet Volume 8.1 fL (7.4-10.4); Platelet Count 188 10^3/uL (150-450)
[2021-01-01 05:42] LABS: EGFR African American 77.6 (>60); EGFR Non-African American 64.2 (>60); Potassium 4.2 mmol/L (3.5-5.0)
[2021-01-01] MEDS: Polyethylene Glycol 3350 17 GM PACKET PO SCH (09:24)
[2021-01-01] MEDS: FLUTICASONE PROPIONATE INH SCH ×2 (09:25→20:25)
[2021-01-01] MEDS: SALMETEROL INH SCH ×2 (09:25→20:25)
[2021-01-01] MEDS: Vitamin THERAPEUTIC TAB PO SCH (09:25)
[2021-01-01] MEDS: Enoxaparin 40 MG/0.4 ML SYR SUBCUT SCH (12:52)
[2021-01-01] MEDS: oxyCODONE SR 15 mg TAB PO SCH (20:14)
[2021-01-01 21:32] LABS: % Iron Saturation 9 % (15-55); Iron 23 ug/dL (50-212); Total Iron Binding Capacity 251 mcg/dL (250-450); Transferrin 179 mg/dL (203-362); Unsaturated Iron Binding < 236 ug/dL
[2021-01-01 21:55] LABS: Ferritin 340.8 ng/mL (11-307)
[2021-01-01 21:59] LABS: Vitamin B12 923 pg/mL (180-914)
[2021-01-02] MEDS: oxyCODONE/Acetamin 5/325 mg TAB PO PRN ×2 (00:57→12:22)
[2021-01-02 05:29] LABS: Hematocrit 26 % (35-47); Hemoglobin 8.6 g/dL (12.0-16.0); Mean Platelet Volume 8.5 fL (7.4-10.4); Platelet Count 212 10^3/uL (150-450)
[2021-01-02 05:48] LABS: Calcium 9.1 mg/dL (8.6-10.3); EGFR African American 75.6 (>60); EGFR Non-African American 62.5 (>60); Potassium 4.4 mmol/L (3.5-5.0)
[2021-01-02] MEDS: Vitamin THERAPEUTIC TAB PO SCH (08:20)
[2021-01-02] MEDS: SALMETEROL INH SCH ×2 (08:21→22:17)
[2021-01-02] MEDS: Polyethylene Glycol 3350 17 GM PACKET PO SCH (08:21)
[2021-01-02] MEDS: FLUTICASONE PROPIONATE INH SCH ×2 (08:21→22:17)
[2021-01-02] MEDS: oxyCODONE SR 15 mg TAB PO SCH ×2 (08:21→21:49)
[2021-01-02] MEDS: Enoxaparin 40 MG/0.4 ML SYR SUBCUT SCH (12:19)
[2021-01-03 08:06] LABS: Hematocrit 26 % (35-47); Hemoglobin 8.6 g/dL (12.0-16.0); Mean Platelet Volume 8.4 fL (7.4-10.4); Platelet Count 234 10^3/uL (150-450)
[2021-01-03 08:16] LABS: Calcium 9.2 mg/dL (8.6-10.3); EGFR African American 83.2 (>60); EGFR Non-African American 68.7 (>60); Potassium 4.2 mmol/L (3.5-5.0)
[2021-01-03] MEDS: SALMETEROL INH SCH (08:57)
[2021-01-03] MEDS: FLUTICASONE PROPIONATE INH SCH (08:57)
[2021-01-03] MEDS: Polyethylene Glycol 3350 17 GM PACKET PO SCH (08:58)
[2021-01-03] MEDS: Vitamin THERAPEUTIC TAB PO SCH (09:02)
[2021-01-03] MEDS: oxyCODONE SR 15 mg TAB PO SCH (09:02)
[2021-01-03] MEDS: oxyCODONE/Acetamin 5/325 mg TAB PO PRN (10:53)
[2021-01-03] MEDS: Enoxaparin 40 MG/0.4 ML SYR SUBCUT SCH (13:02)
[2021-01-03 15:53] VITALS: BP 98/66
== END 2021-01-03 15:54 | disposition swing bed (61) | DRG 478 ==
LOC: MEDTELE 14:31 → ED 14:31 → SSU 12-31 18:14
PROVIDERS: ADMIT Pediatrics; ATTEND Hospitalist

== ENCOUNTER 2021-01-03 16:00 | Inpatient (IN) ==
[2021-01-03] MEDS ORDERED: Magnesium Hydroxide LIQ 30 ML UDC PO PRN (17:45)
[2021-01-03] MEDS ORDERED: Polyethylene Glycol 3350 17 GM PACKET PO PRN (17:46)
[2021-01-03] MEDS ORDERED: oxyCODONE/Acetamin 5/325 mg TAB PO PRN (17:47)
[2021-01-03] MEDS ORDERED: Senna TAB 8.6 mg TAB PO PRN (17:47)
[2021-01-03] MEDS ORDERED: NFT: Albuterol/Ipratropium RESP(NF) MDI (Combivent Respimat) INH PRN (17:49)
[2021-01-03] MEDS: oxyCODONE SR 15 mg TAB PO SCH (20:35)
[2021-01-03] MEDS: SALMETEROL PO SCH (20:39)
[2021-01-03] MEDS: FLUTICASONE PO SCH (20:39)
[2021-01-04] MEDS: oxyCODONE SR 15 mg TAB PO SCH ×2 (08:48→20:16)
[2021-01-04] MEDS: Vitamin THERAPEUTIC TAB PO SCH (08:49)
[2021-01-04] MEDS: FLUTICASONE PO SCH ×2 (08:51→20:16)
[2021-01-04] MEDS: Polyethylene Glycol 3350 17 GM PACKET PO SCH (08:51)
[2021-01-04] MEDS: SALMETEROL PO SCH ×2 (08:51→20:16)
[2021-01-04] MEDS: Enoxaparin 40 MG/0.4 ML SYR SUBCUT SCH (12:27)
[2021-01-05] MEDS: SALMETEROL PO SCH ×2 (08:12→21:10)
[2021-01-05] MEDS: FLUTICASONE PO SCH ×2 (08:12→21:10)
[2021-01-05] MEDS: Polyethylene Glycol 3350 17 GM PACKET PO SCH (08:13)
[2021-01-05] MEDS: Vitamin THERAPEUTIC TAB PO SCH (08:15)
[2021-01-05] MEDS: oxyCODONE SR 15 mg TAB PO SCH ×2 (08:16→21:28)
[2021-01-05] MEDS: Enoxaparin 40 MG/0.4 ML SYR SUBCUT SCH (11:57)
[2021-01-06] MEDS: Polyethylene Glycol 3350 17 GM PACKET PO SCH (08:59)
[2021-01-06] MEDS: Vitamin THERAPEUTIC TAB PO SCH (09:04)
[2021-01-06] MEDS: oxyCODONE SR 15 mg TAB PO SCH ×2 (09:05→20:33)
[2021-01-06] MEDS: FLUTICASONE PO SCH (09:07)
[2021-01-06] MEDS: SALMETEROL PO SCH (09:07)
[2021-01-06] MEDS: Enoxaparin 40 MG/0.4 ML SYR SUBCUT SCH (11:45)
[2021-01-06] MEDS ORDERED: Albuterol HFA INHALER 8 gm MDI INH PRN (15:00)
[2021-01-06] MEDS: Mometasone/Formoter 200/5 MDI INH SCH (19:39)
[2021-01-07] MEDS: Mometasone/Formoter 200/5 MDI INH SCH ×2 (08:16→19:47)
[2021-01-07] MEDS: Polyethylene Glycol 3350 17 GM PACKET PO SCH (08:22)
[2021-01-07] MEDS: oxyCODONE SR 15 mg TAB PO SCH ×2 (08:23→21:11)
[2021-01-07] MEDS: Vitamin THERAPEUTIC TAB PO SCH (08:23)
[2021-01-07] MEDS: Enoxaparin 40 MG/0.4 ML SYR SUBCUT SCH (12:42)
[2021-01-07 16:18] LABS: Urine Appearance Turbid; Urine Bilirubin Negative (Negative); Urine Blood 1+ (Negative); Urine Color Amber; Urine Glucose Negative (Negative); Urine Ketones Negative (Negative); Urine Nitrite Negative (Negative); Urine Protein 2+(100 mg/dL) (Negative); Urine Specific Gravity 1.012 (1.002-1.030); Urine Urobilinogen Negative (Negative)
[2021-01-07 16:35] LABS: Urine Amorphous Crystals Present (Absent); Urine Bacteria 2+ (Absent); Urine Red Blood Cell 3+(>10/hpf) (Absent); Urine Squamous Epithelial Cell Present (Absent); Urine White Blood Cell 3+(>20/hpf) (Absent); Urine Yeast Present (Absent)
[2021-01-08] MEDS: Mometasone/Formoter 200/5 MDI INH SCH ×2 (08:01→20:02)
[2021-01-08] MEDS: oxyCODONE SR 15 mg TAB PO SCH ×2 (09:01→20:16)
[2021-01-08] MEDS: Polyethylene Glycol 3350 17 GM PACKET PO SCH (09:03)
[2021-01-08] MEDS: Vitamin THERAPEUTIC TAB PO SCH (09:03)
[2021-01-08] MEDS: Enoxaparin 40 MG/0.4 ML SYR SUBCUT SCH (13:44)
[2021-01-09 05:23] LABS: ABS Basophils 0.1 10^3/ul (0-0.2); ABS Eosinophils 0.4 10^3/ul (0-0.6); ABS Lymphocytes 1.6 10^3/ul (1.0-4.8); ABS Monocytes 0.7 10^3/ul (0-0.8); Eosinophil % 5.2 %; Hematocrit 27 % (35-47); Hemoglobin 8.8 g/dL (12.0-16.0); Lymphocyte % 20.4 %; Mean Corpuscular HGB Conc 33 g/dL (31-36); Mean Corpuscular Hemoglobin 29 pg (27-31); Mean Corpuscular Volume 88 fL (80-97); Mean Platelet Volume 7.4 fL (7.4-10.4); Platelet Count 420 10^3/uL (150-450); Red Blood Count 3.03 10^6 /uL (3.70-4.87); Red Cell Distribution Width 19 % (10-15); White Blood Count 7.7 10^3/uL (3.5-10.8)
[2021-01-09 05:36] LABS: Calcium 9.3 mg/dL (8.6-10.3); EGFR African American 74.6 (>60); EGFR Non-African American 61.7 (>60); Potassium 4.5 mmol/L (3.5-5.0)
[2021-01-09] MEDS: Mometasone/Formoter 200/5 MDI INH SCH ×2 (07:35→20:45)
[2021-01-09] MEDS: Vitamin THERAPEUTIC TAB PO SCH (08:38)
[2021-01-09] MEDS: oxyCODONE SR 15 mg TAB PO SCH ×2 (08:38→21:19)
[2021-01-09] MEDS: Polyethylene Glycol 3350 17 GM PACKET PO SCH (08:39)
[2021-01-09] MEDS: Enoxaparin 40 MG/0.4 ML SYR SUBCUT SCH (11:35)
[2021-01-09] MEDS: Amoxicillin/Clavul 875/125 TAB (Augmentin 875 tab) PO SCH (21:19)
[2021-01-10] MEDS: Mometasone/Formoter 200/5 MDI INH SCH ×2 (08:02→19:43)
[2021-01-10] MEDS: Amoxicillin/Clavul 875/125 TAB (Augmentin 875 tab) PO SCH ×2 (09:53→22:26)
[2021-01-10] MEDS: Vitamin THERAPEUTIC TAB PO SCH (09:53)
[2021-01-10] MEDS: oxyCODONE SR 15 mg TAB PO SCH (09:53)
[2021-01-10] MEDS: Polyethylene Glycol 3350 17 GM PACKET PO SCH (09:54)
[2021-01-10] MEDS: Ondansetron 4 mg VIAL 2 MG/ML 2 ml VIAL IV PRN ×3 (10:19→22:07)
[2021-01-10] MEDS: Enoxaparin 40 MG/0.4 ML SYR SUBCUT SCH (13:44)
[2021-01-10] MEDS: oxyCODONE/Acetamin 5/325 mg TAB PO PRN (22:09)
[2021-01-11] MEDS: oxyCODONE/Acetamin 5/325 mg TAB PO PRN ×2 (08:51→19:25)
[2021-01-11] MEDS: Vitamin THERAPEUTIC TAB PO SCH (09:09)
[2021-01-11] MEDS: Polyethylene Glycol 3350 17 GM PACKET PO SCH (09:10)
[2021-01-11] MEDS: Ondansetron 4 mg VIAL 2 MG/ML 2 ml VIAL IV PRN ×3 (09:38→19:26)
[2021-01-11] MEDS: Amoxicillin/Clavul 875/125 TAB (Augmentin 875 tab) PO SCH ×2 (09:41→22:21)
[2021-01-11] MEDS: Mometasone/Formoter 200/5 MDI INH SCH ×2 (10:42→19:49)
[2021-01-11] MEDS: Enoxaparin 40 MG/0.4 ML SYR SUBCUT SCH (13:27)
[2021-01-12] MEDS: Ondansetron 4 mg VIAL 2 MG/ML 2 ml VIAL IV PRN (05:58)
[2021-01-12] MEDS: oxyCODONE/Acetamin 5/325 mg TAB PO PRN ×3 (05:58→21:39)
[2021-01-12] MEDS: Mometasone/Formoter 200/5 MDI INH SCH ×2 (08:12→22:17)
[2021-01-12] MEDS: Vitamin THERAPEUTIC TAB PO SCH (08:44)
[2021-01-12] MEDS: Amoxicillin/Clavul 875/125 TAB (Augmentin 875 tab) PO SCH ×2 (08:45→21:39)
[2021-01-12] MEDS: Polyethylene Glycol 3350 17 GM PACKET PO SCH (08:47)
[2021-01-12] MEDS: Enoxaparin 40 MG/0.4 ML SYR SUBCUT SCH (11:20)
[2021-01-12] MEDS: Prochlorperazine 5 mg/ml 2 ml VIAL (10 mg) IV PRN (17:58)
[2021-01-13] MEDS: oxyCODONE/Acetamin 5/325 mg TAB PO PRN ×4 (04:30→20:17)
[2021-01-13] MEDS: Polyethylene Glycol 3350 17 GM PACKET PO SCH (07:58)
[2021-01-13] MEDS: Vitamin THERAPEUTIC TAB PO SCH (08:00)
[2021-01-13] MEDS: Amoxicillin/Clavul 875/125 TAB (Augmentin 875 tab) PO SCH ×2 (08:19→20:14)
[2021-01-13] MEDS: Mometasone/Formoter 200/5 MDI INH SCH ×2 (14:06→20:35)
[2021-01-13] MEDS: Enoxaparin 40 MG/0.4 ML SYR SUBCUT SCH (14:12)
[2021-01-13] MEDS: Ondansetron 4 mg VIAL 2 MG/ML 2 ml VIAL IV PRN (20:14)
[2021-01-14] MEDS: oxyCODONE/Acetamin 5/325 mg TAB PO PRN ×4 (05:32→18:32)
[2021-01-14] MEDS: Mometasone/Formoter 200/5 MDI INH SCH ×2 (07:58→19:33)
[2021-01-14] MEDS: Polyethylene Glycol 3350 17 GM PACKET PO SCH (09:11)
[2021-01-14] MEDS: Amoxicillin/Clavul 875/125 TAB (Augmentin 875 tab) PO SCH (09:12)
[2021-01-14] MEDS: Vitamin THERAPEUTIC TAB PO SCH (09:12)
[2021-01-14] MEDS: Enoxaparin 40 MG/0.4 ML SYR SUBCUT SCH (13:02)
[2021-01-15] MEDS: oxyCODONE/Acetamin 5/325 mg TAB PO PRN ×3 (01:29→21:12)
[2021-01-15] MEDS: Vitamin THERAPEUTIC TAB PO SCH (07:38)
[2021-01-15] MEDS: Polyethylene Glycol 3350 17 GM PACKET PO SCH (07:40)
[2021-01-15] MEDS: Mometasone/Formoter 200/5 MDI INH SCH ×2 (08:49→19:12)
[2021-01-15] MEDS: Ondansetron 4 mg VIAL 2 MG/ML 2 ml VIAL IV PRN ×2 (09:02→17:41)
[2021-01-15] MEDS: Enoxaparin 40 MG/0.4 ML SYR SUBCUT SCH (13:02)
[2021-01-15] MEDS: Prochlorperazine 5 mg/ml 2 ml VIAL (10 mg) IV PRN (13:02)
[2021-01-16] MEDS: oxyCODONE/Acetamin 5/325 mg TAB PO PRN ×3 (04:36→20:16)
[2021-01-16] MEDS: Mometasone/Formoter 200/5 MDI INH SCH ×2 (08:12→18:53)
[2021-01-16] MEDS: Vitamin THERAPEUTIC TAB PO SCH (08:22)
[2021-01-16] MEDS: Polyethylene Glycol 3350 17 GM PACKET PO SCH (08:25)
[2021-01-16] MEDS: Enoxaparin 40 MG/0.4 ML SYR SUBCUT SCH (12:37)
[2021-01-17] MEDS: oxyCODONE/Acetamin 5/325 mg TAB PO PRN ×2 (03:48→10:52)
[2021-01-17] MEDS: Mometasone/Formoter 200/5 MDI INH SCH ×2 (06:34→07:22)
[2021-01-17 08:18] VITALS: BP 127/61
[2021-01-17] MEDS: Vitamin THERAPEUTIC TAB PO SCH (08:45)
[2021-01-17] MEDS: Polyethylene Glycol 3350 17 GM PACKET PO SCH (08:46)
[2021-01-17 09:16] LABS: Rapid COVID-19 Molecular Undetected (Undetected)
[2021-01-17] MEDS: Ondansetron 4 mg VIAL 2 MG/ML 2 ml VIAL IV PRN (10:53)
== END 2021-01-17 11:15 | DRG 543 ==
LOC: SSU 16:46 → MED 01-10 16:42
PROVIDERS: ADMIT Internal Medicine; ATTEND Internal Medicine

== ENCOUNTER 2021-01-25 01:45 | Inpatient (IN) ==
[2021-01-25] MEDS: NS 0.9% 1000 ml BAG 1,000 ML IV SCH ×2 (02:22→23:30)
[2021-01-25 02:48] LABS: ABS Monocytes 0.7 10^3/ul (0-0.8); ABS Neutrophils 9.5 10^3/ul (1.5-7.7); Eosinophil % 0.3 %; Hematocrit 30 % (35-47); Hemoglobin 9.6 g/dL (12.0-16.0); Lymphocyte % 8.8 %; Mean Corpuscular HGB Conc 32 g/dL (31-36); Mean Corpuscular Hemoglobin 27 pg (27-31); Mean Corpuscular Volume 85 fL (80-97); Mean Platelet Volume 7.4 fL (7.4-10.4); Platelet Count 479 10^3/uL (150-450); Red Blood Count 3.52 10^6 /uL (3.70-4.87); Red Cell Distribution Width 20 % (10-15); White Blood Count 11.3 10^3/uL (3.5-10.8)
[2021-01-25 03:04] LABS: INR 1.25 (0.86-1.15)
[2021-01-25 03:15] LABS: ALT 15 U/L (7-52); AST 21 U/L (13-39); Albumin 3.4 g/dL (3.2-5.2); Albumin/Globulin Ratio 0.9 (1-3); Alkaline Phosphatase 56 U/L (35-149); Anion Gap 8 mmol/L (2-11); Blood Urea Nitrogen 15 mg/dL (6-24); CO2 Carbon Dioxide 26 mmol/L (22-32); Calcium 10.2 mg/dL (8.6-10.3); Chloride 98 mmol/L (101-111); Creatine Kinase 38 U/L (10-223); EGFR African American 71.8 (>60); EGFR Non-African American 59.4 (>60); Globulin 3.9 g/dL (2-4); Glucose 109 mg/dL (70-100); Magnesium 1.8 mg/dL (1.9-2.7); Potassium 3.9 mmol/L (3.5-5.0); Sodium 132 mmol/L (135-145); Total Protein 7.3 g/dL (6.4-8.9)
[2021-01-25 03:16] LABS: Acetaminophen < 15 mcg/mL; Alcohol, S < 13 mg/dL (<13); Salicylate < 2.50 mg/dL (<30)
[2021-01-25 03:18] LABS: Troponin I 0.01 ng/mL (<0.03)
[2021-01-25 04:15] LABS: TSH Ultra Thyroid Stim Horm 1.13 mcIU/mL (0.34-5.60)
[2021-01-25 06:08] LABS: Urine Benzodiazepine Screen None Detected (None Detect); Urine Cannabinoids Screen None Detected (None Detect); Urine Opiates Screen None Detected (None Detect)
[2021-01-25 06:40] LABS: Urine Appearance Clear; Urine Bilirubin Negative (Negative); Urine Blood Negative (Negative); Urine Color Straw; Urine Glucose Negative (Negative); Urine Ketones Negative (Negative); Urine Nitrite Negative (Negative); Urine Protein Negative (Negative); Urine Specific Gravity 1.004 (1.002-1.030); Urine Urobilinogen Negative (Negative)
[2021-01-25] MEDS ORDERED: oxyCODONE/Acetamin 5/325 mg TAB PO PRN (11:08)
[2021-01-25] MEDS: Morphine 2 MG/ML SYRINGE IV PRN ×3 (12:14→20:05)
[2021-01-25] MEDS ORDERED: Albuterol HFA INHALER 8 gm MDI INH PRN (16:10)
[2021-01-25] MEDS ORDERED: Magnesium Hydroxide LIQ 30 ML UDC PO PRN (16:10)
[2021-01-25] MEDS ORDERED: Gadoteridol (CONTRAST) 279.3 MG/ML 10 ML IV ONE (19:36)
[2021-01-25] MEDS: Mometasone/Formoter 200/5 MDI INH SCH (21:09)
[2021-01-26] MEDS: Morphine 2 MG/ML SYRINGE IV PRN ×5 (01:00→20:21)
[2021-01-26 06:25] LABS: ABS Basophils 0.1 10^3/ul (0-0.2); ABS Eosinophils 0.3 10^3/ul (0-0.6); ABS Lymphocytes 1.2 10^3/ul (1.0-4.8); ABS Monocytes 0.7 10^3/ul (0-0.8); ABS Neutrophils 7.5 10^3/ul (1.5-7.7); Eosinophil % 2.6 %; Hematocrit 28 % (35-47); Hemoglobin 9.1 g/dL (12.0-16.0); Lymphocyte % 12.7 %; Mean Corpuscular HGB Conc 33 g/dL (31-36); Mean Corpuscular Hemoglobin 28 pg (27-31); Mean Corpuscular Volume 86 fL (80-97); Mean Platelet Volume 7.1 fL (7.4-10.4); Platelet Count 464 10^3/uL (150-450); Red Blood Count 3.24 10^6 /uL (3.70-4.87); Red Cell Distribution Width 20 % (10-15); White Blood Count 9.8 10^3/uL (3.5-10.8)
[2021-01-26 06:43] LABS: Albumin/Globulin Ratio 0.8 (1-3); Calcium 9.3 mg/dL (8.6-10.3); EGFR African American 88.2 (>60); EGFR Non-African American 72.9 (>60); Globulin 3.6 g/dL (2-4); Potassium 3.6 mmol/L (3.5-5.0); Total Bilirubin 0.4 mg/dL (0.2-1.0); Total Protein 6.6 g/dL (6.4-8.9)
[2021-01-26] MEDS: NS 0.9% 1000 ml BAG 1,000 ML IV SCH ×2 (08:08→16:15)
[2021-01-26] MEDS: Mometasone/Formoter 200/5 MDI INH SCH ×2 (09:17→20:28)
[2021-01-26] MEDS: Polyethylene Glycol 3350 17 GM PACKET PO SCH (10:43)
[2021-01-26] MEDS: oxyCODONE/Acetamin 5/325 mg TAB PO PRN (16:15)
[2021-01-27] MEDS: NS 0.9% 1000 ml BAG 1,000 ML IV SCH ×4 (00:29→23:28)
[2021-01-27] MEDS: oxyCODONE/Acetamin 5/325 mg TAB PO PRN ×4 (00:34→20:02)
[2021-01-27] MEDS: Polyethylene Glycol 3350 17 GM PACKET PO SCH (09:41)
[2021-01-27] MEDS: Mometasone/Formoter 200/5 MDI INH SCH ×2 (09:42→20:43)
[2021-01-27] MEDS: Linezolid 600 MG IVPREMIX(*) 600 MG/300 ML BAG IVPB SCH ×2 (11:47→23:29)
[2021-01-28] MEDS: oxyCODONE/Acetamin 5/325 mg TAB PO PRN ×2 (02:19→09:23)
[2021-01-28] MEDS: Mometasone/Formoter 200/5 MDI INH SCH ×2 (07:01→20:22)
[2021-01-28] MEDS: NS 0.9% 1000 ml BAG 1,000 ML IV SCH (07:36)
[2021-01-28] MEDS: Morphine 2 MG/ML SYRINGE IV PRN (07:51)
[2021-01-28] MEDS: Morphine ER 15 mg TAB ** extended release PO SCH ×2 (09:29→22:10)
[2021-01-28] MEDS: Polyethylene Glycol 3350 17 GM PACKET PO SCH (09:29)
[2021-01-28] MEDS: Linezolid 600 MG IVPREMIX(*) 600 MG/300 ML BAG IVPB SCH (12:01)
[2021-01-29] MEDS: Linezolid 600 MG IVPREMIX(*) 600 MG/300 ML BAG IVPB SCH ×3 (01:03→23:57)
[2021-01-29 06:44] LABS: ABS Basophils 0.1 10^3/ul (0-0.2); ABS Eosinophils 0.2 10^3/ul (0-0.6); ABS Monocytes 0.7 10^3/ul (0-0.8); ABS Neutrophils 6.4 10^3/ul (1.5-7.7); Eosinophil % 2.9 %; Hematocrit 26 % (35-47); Hemoglobin 8.6 g/dL (12.0-16.0); Lymphocyte % 12.2 %; Mean Corpuscular HGB Conc 33 g/dL (31-36); Mean Corpuscular Hemoglobin 28 pg (27-31); Mean Corpuscular Volume 84 fL (80-97); Mean Platelet Volume 7.1 fL (7.4-10.4); Platelet Count 411 10^3/uL (150-450); Red Blood Count 3.11 10^6 /uL (3.70-4.87); Red Cell Distribution Width 19 % (10-15); White Blood Count 8.4 10^3/uL (3.5-10.8)
[2021-01-29 07:02] LABS: Albumin 2.8 g/dL (3.2-5.2); Albumin/Globulin Ratio 0.9 (1-3); Calcium 8.8 mg/dL (8.6-10.3); EGFR African American 107.2 (>60); EGFR Non-African American 88.6 (>60); Globulin 3.2 g/dL (2-4); Magnesium 1.9 mg/dL (1.9-2.7); Potassium 3.5 mmol/L (3.5-5.0); Total Bilirubin 0.3 mg/dL (0.2-1.0)
[2021-01-29] MEDS: Polyethylene Glycol 3350 17 GM PACKET PO SCH (09:09)
[2021-01-29] MEDS: Morphine ER 15 mg TAB ** extended release PO SCH ×2 (10:45→18:42)
[2021-01-29] MEDS: Mometasone/Formoter 200/5 MDI INH SCH ×2 (10:47→19:34)
[2021-01-29] MEDS: OLOPATADINE 0.1% BOTH EYES SCH ×2 (10:54→20:41)
[2021-01-29] MEDS: oxyCODONE/Acetamin 5/325 mg TAB PO PRN (20:47)
[2021-01-30] MEDS: Morphine ER 15 mg TAB ** extended release PO SCH ×3 (01:49→18:01)
[2021-01-30] MEDS: Mometasone/Formoter 200/5 MDI INH SCH ×2 (08:06→19:15)
[2021-01-30] MEDS: oxyCODONE/Acetamin 5/325 mg TAB PO PRN ×3 (09:21→21:15)
[2021-01-30] MEDS: OLOPATADINE 0.1% BOTH EYES SCH ×2 (10:00→21:17)
[2021-01-30] MEDS: Polyethylene Glycol 3350 17 GM PACKET PO SCH (12:14)
[2021-01-30] MEDS: Linezolid 600 MG IVPREMIX(*) 600 MG/300 ML BAG IVPB SCH (12:30)
[2021-01-31] MEDS: Morphine ER 15 mg TAB ** extended release PO SCH ×3 (02:08→18:03)
[2021-01-31] MEDS: Mometasone/Formoter 200/5 MDI INH SCH ×2 (07:04→19:32)
[2021-01-31] MEDS: Polyethylene Glycol 3350 17 GM PACKET PO SCH (08:43)
[2021-01-31] MEDS: OLOPATADINE 0.1% BOTH EYES SCH ×2 (08:44→20:49)
[2021-01-31] MEDS: oxyCODONE/Acetamin 5/325 mg TAB PO PRN ×2 (08:48→20:48)
[2021-02-01] MEDS: Morphine ER 15 mg TAB ** extended release PO SCH ×2 (02:39→10:08)
[2021-02-01] MEDS: Mometasone/Formoter 200/5 MDI INH SCH (07:10)
[2021-02-01] MEDS: oxyCODONE/Acetamin 5/325 mg TAB PO PRN ×2 (07:34→13:25)
[2021-02-01] MEDS: OLOPATADINE 0.1% BOTH EYES SCH (08:30)
[2021-02-01] MEDS: Polyethylene Glycol 3350 17 GM PACKET PO SCH (08:36)
[2021-02-01 11:46] VITALS: BP 124/61
== END 2021-02-01 15:25 | DRG 872 ==
LOC: ED 01:45 → SSU 20:01
PROVIDERS: ADMIT Internal Medicine Hematology & Oncology; ATTEND Internal Medicine Medical Oncology